=== PATIENT | male | born 1945 | race American Indian/Alaskan Native ===

== ENCOUNTER 2018-11-27 20:32 | Inpatient (IN) | payer MEDICARE ==
--- NOTE | 2018-11-27 21:30 | Emergency Department Report ---
HPI - General Chief Complaint: Weakness Time Seen by Provider: 11/27/18 20:40 - HPI HPI: 73-year-old -[place]i male presents to the emergency department via EMS from home with complaint of generalized weakness and fatigue. He also complains of some occasional diarrhea. He denies any chest pain, fever, shortness of breath, headache or any focal neurological deficits. He has a past medical history of sya-[id number] diabetes, hypothyroidism, hypertension and hyperlipidemia. No recent travel or sick contacts at home. He says that these symptoms going on for "a while." He has not taken anything for his symptoms prior to presentation. ED Past Medical Hx - Past Medical History Previous Medical History?: Yes Hx Hypertension: Yes Hx Diabetes: Yes - Social History Smoking Status: Never Smoker - Medications Home Medications: Home Medications Medication Instructions Recorded Confirmed Last Taken Type AtorvaSTATin [Lipitor] 40 mg PO DAILY 11/27/18 11/27/18 Unknown History Cholecalciferol (Vitamin D3) 1,000 1000units PO DAILY 11/27/18 11/27/18 Unknown History [Vitamin D3] Docusate Sodium [Colace] 100 mg PO BID PRN 11/27/18 11/27/18 Unknown History Furosemide [Lasix] 20 mg PO DAILY 11/27/18 11/27/18 Unknown History Hydrocortisone 10 mg PO QAM 11/27/18 11/27/18 Unknown History Hydrocortisone 15 mg PO QPM 11/27/18 11/27/18 Unknown History Levothyroxine [Synthroid] 25 mcg PO QAM 11/27/18 11/27/18 Unknown History Levothyroxine [Synthroid] 112 mcg PO QAM 11/27/18 11/27/18 Unknown History Losartan/Hydrochlorothiazide 1 each PO DAILY 11/27/18 11/27/18 Unknown History [Losartan-Hctz 100-25 mg Tab] Metformin HCl 1,000 mg PO BID 11/27/18 11/27/18 Unknown History Ranitidine HCl [Acid Mold Maker Plaster] 150 mg PO DAILY 11/27/18 11/27/18 Unknown History ED Review of Systems ROS: Stated complaint: GENERAL WEAKNESS Other details as noted in HPI Comment: All other systems reviewed and negative Constitutional: weakness. denies: fever Eyes: denies: eye pain, vision change ENT: denies: ear pain, throat pain Respiratory: denies: cough, shortness of breath Cardiovascular: denies: chest pain, palpitations Gastrointestinal: diarrhea. denies: abdominal pain, constipation Genitourinary: denies: dysuria, discharge Musculoskeletal: denies: back pain, arthralgia Skin: denies: rash, lesions Neurological: weakness. denies: headache, numbness Physical Exam - Physical Exam Vital Signs: Vital Signs 11/27/18 20:57 Temperature 97.5 F L Pulse Rate 106 H Respiratory 20 Rate Blood Pressure 93/57 O2 Sat by Pulse 95 Oximetry Physical Exam: GENERAL: Patient is ill-appearing. HEENT: Normocephalic. Atraumatic. Patient has dry mucous membranes. EYES: Extraocular motions are intact. Pupils are equal and reactive to light bilaterally. NECK: Supple. Trachea is midline. CHEST/LUNGS: Clear to auscultation. There is no respiratory distress noted. HEART/CARDIOVASCULAR: Regular. There is mild tachycardia. There is no obvious murmur. ABDOMEN: Abdomen is soft. There is some epigastric and right upper quadrant tenderness to palpation. No guarding. Patient has normal bowel sounds. There is no abdominal distention. SKIN: Skin is warm and dry. NEURO: The patient is awake, alert, and oriented. The patient is cooperative. The patient has no focal neurologic deficits. The patient has normal speech. MUSCULOSKELETAL: There is no tenderness or deformity. There is no evidence of acute injury. ED Course Vital Signs 11/27/18 20:57 Temperature 97.5 F L Pulse Rate 106 H Respiratory 20 Rate Blood Pressure 93/57 O2 Sat by Pulse 95 Oximetry ED Medical Decision Making - Lab Data Result diagrams: 11/27/18 21:47 11/27/18 22:49 - EKG Data -: EKG Interpreted by Me EKG shows normal: sinus rhythm, axis (left axis deviation), intervals, QRS complexes, ST-T waves Rate: tachycardia (111 bpm) - EKG Data When compared to previous EKG there are: previous EKG unavailable Interpretation: other (sinus tachycardia at 111 bpm, left axis deviation) - Radiology Data Radiology results: report reviewed, image reviewed interpreted by me: Chest x-ray does not show any pneumothorax, pleural effusion, pneumonia or obvious focal consolidation. PROCEDURE: CT HEAD/BRAIN WO CON TECHNIQUE: Axial helical imaging from the skull base to the vertex. HISTORY: Altered Mental Status COMPARISONS: None FINDINGS: There is no evidence of an acute intracranial process, intracranial hemorrhage or mass effect. Ventricular size is concordant with the degree of atrophy. The visualized portions of the orbits, paranasal and mastoid sinuses are unremarkable. The bony structures are unremarkable. IMPRESSION: 1. No evidence of an acute intracranial process, intracranial hemorrhage or mass effect. If there is a clinical suspicion of an acute intracranial process, MRI brain may be helpful. This document is electronically signed by Jannette Rueda MD., November 27 2018 10:39:58 PM ET Transcribed By: OPAL Dictated By: JANNETTE RUEDA MD Electronically Authenticated By: JANNETTE RUEDA MD Signed Date/Time: 11/27/18 2242 PROCEDURE: US ABDOMEN LIMITED TECHNIQUE: Routine imaging was obtained of the right upper quadrant. HISTORY: RUQ abd pain, abnormal LFTs and bilirubin COMPARISONS: None FINDINGS: The liver is enlarged and reveals a very heterogeneous irregular echotexture throughout both lobes. Metastatic disease cannot be excluded. In the right hepatic lobe is an additional heterogeneous prominently hyperechoic mass measuring least 4 cm in diameter. Malignancy is suspected. The gallbladder is contracted. The wall thickness is 3.5 mm. There is shadowing from the gallbladder suggesting a stone. Yuan sign was not elicited. The common bile duct measures 4 mm in diameter. The pancreatic head appears normal. The body and tail are not well- seen. The right kidney shows no evidence of hydronephrosis. IMPRESSION: Hepatomegaly with heterogeneous echotexture of the entire liver suspicious for metastatic disease. Additional hyperechoic poorly marginated mass in the right hepatic lobe measuring least [address] of the abdomen with IV contrast recommended for further evaluation. Contracted gallbladder with shadowing from the gallbladder. A stone is suspected. A Yuan's sign was not elicited. Normal biliary tree. No evidence of hydronephrosis.. This document is electronically signed by Dayna Arias MD., November 28 2018 12:50:30 AM ET Transcribed By: RB Dictated By: DAYNA ARIAS MD Electronically Authenticated By: DAYNA ARIAS MD Signed Date/Time: 11/28/18 0052 PROCEDURE: US RENAL BILAT TECHNIQUE: Real-time sonography in multiple planes of the kidneys, ureters and urinary bladder was performed with image documentation. HISTORY: FIORDALIZA, renal failure COMPARISONS: None . FINDINGS: RIGHT kidney: Normal echotexture. No focal renal mass, calculus, or hydronephrosis. Length: 12.7 cm. LEFT kidney: Normal echotexture. No focal renal mass, calculus, or hydronephrosis. Length: 12.8 cm. Bladder: Normal. No distention or wall thickening. IMPRESSION: Normal Examination . This document is electronically signed by Bozena Thomason DO., November 28 2018 12:51:41 AM ET Transcribed By: [facility] Dictated By: BOZENA THOMASON MD Electronically Authenticated By: BOZENA THOMASON MD Signed Date/Time: 11/28/18 0053 - Medical Decision Making This patient presents to the emergency department with complaint of some generalized weakness and just feeling generally ill. Patient has multiple abnormal labs including what appears to be acute renal failure and elevation in his LFTs and bilirubin and alkaline phosphatase. CT of the head did not show any bleed, shift, mass, ischemia, or any other acute process. Chest x-ray did not show any focal consolidation, pneumonia, pneumothorax, pleural effusions, or any other acute process. Renal ultrasound was unremarkable. However the right upper quadrant/limited abdominal ultrasound shows concern for metastatic liver disease as well as some cholelithiasis without cholecystitis. The patient will be admitted to the hospital for further evaluation and treatment and was accepted for admission by the hospitalist, Dr. Lomeli. - Differential Diagnosis Malignancy, TIA, Dysrythmia, hypoglycemia, [place] Critical Care Time: Yes Critical care time in (mins) excluding proc time.: 35 Critical care attestation.: If time is entered above; I have spent that time in minutes in the direct care of this critically ill patient, excluding procedure time. Cranial Time was spent on this patient during his initial evaluation, multiple re-evaluations, interpretation of labs and imaging, resuscitation, medication administration as treatment for his hyperkalemia.There is a high probability of clinically significant, sudden, or life-threatening deterioration that has required multiple evaluations and direct attention, intervention, and management. Critical Care Time: 35 minutes ED Disposition Clinical Impression: Hyperkalemia, Liver masses, Elevated troponin Acute renal failure Qualifiers: Acute renal failure type: unspecified Qualified Code(s): N17.9 - Acute kidney failure, unspecified Cholelithiasis Qualifiers: Cholelithiasis location: gallbladder Cholecystitis presence: with cholecystitis Cholecystitis acuity: unspecified acuity Biliary obstruction: without biliary obstruction Qualified Code(s): K80.10 - Calculus of gallbladder with chronic cholecystitis without obstruction Hypotension Qualifiers: Hypotension type: other hypotension type Qualified Code(s): I95.89 - Other hypotension Disposition: DC-09 OP ADMIT IP TO THIS HOSP Is pt being admited?: Yes Condition: Serious Time of Disposition: 01:07
[2018-11-27 22:02] LABS: Hematocrit 34.1 % (35.5-45.6); Hemoglobin 11.6 gm/dl (11.8-15.2); Mean Corpuscular HGB Conc 34 % (32-34); Mean Corpuscular Volume 92 fl (84-94); Platelet Count 321 K/mm3 (140-440); Red Blood Count 3.72 M/mm3 (3.65-5.03)
[2018-11-27 22:09] LABS: Red Cell Distribution Width 24.9 % (13.2-15.2)
[2018-11-27] MEDS ORDERED: NACL 0.9% 500 ML 500 ML IV ONE (22:10)
--- NOTE | 2018-11-27 22:10 | XRay Report ---
XR CHEST 1V AP CLINICAL INDICATION: Male, 73 years of age. Altered Mental Status COMPARISON: None available. Findings: Frontal view(s) of the chest obtained. Cardiac silhouette is within normal limits. No gr oss focal consolidation or effusion. No gross pneumothorax. IMPRESSION: No grossly acute findings. This document is electronically signed by Jayda Mclean DO., November 27 2018 10:08:58 PM ET
[2018-11-27 22:14] LABS: INR 1.75 (0.87-1.13); Partial Thromboplastin Time 34.7 Sec. (24.2-36.6)
[2018-11-27 22:21] LABS: Albumin 2.6 g/dL (3.9-5)
[2018-11-27 22:40] LABS: Eosinophils % (Manual) 0 % (0.0-4.3); Total Cells Counted 100
[2018-11-27 22:41] LABS: Anisocytosis 2+; Hypochromasia 1+; Target Cells 2+
[2018-11-27 22:42] LABS: Spherocytes Few
--- NOTE | 2018-11-27 22:42 | Cat Scan Report ---
PROCEDURE: CT HEAD/BRAIN WO CON TECHNIQUE: Axial helical imaging from the skull base to the vertex. HISTORY: Altered Mental Status COMPARISONS: None FINDINGS: There is no evidence of an acute intracranial process, intracranial hemorrhage or mass effect. Ventricular size is concordant with the degree of atrophy. The visualized portions of the orbits, paranasal and mastoid sinuses are unremarkable. The bony structures are unremarkable. IMPRESSION: 1. No evidence of an acute intracranial process, intracranial hemorrhage or mass effect. If there is a clinical suspicion of an acute intracranial process, MRI brain may be helpful. This document is electronically signed by Jannette Rueda MD., November 27 2018 10:39:58 PM ET
[2018-11-27 22:43] LABS: Platelet Estimate Consistent w Auto
[2018-11-27 22:44] LABS: Chol/HDL Ratio 14.57 %
[2018-11-27] MEDS ORDERED: PROVENTIL IH ONE (23:51)
[2018-11-27] MEDS ORDERED: KIONEX PO ONE (23:52)
[2018-11-27] MEDS ORDERED: D50W (25GM) Vial IV ONE (23:52)
[2018-11-27] MEDS ORDERED: HumuLIN R IV ONE (23:52)
[2018-11-27] MEDS ORDERED: CALCIUM GLUCONATE 1,000 MG in NACL 0.9% 100 ML IV ONE (23:52)
--- NOTE | 2018-11-28 00:52 | Ultrasound Report ---
PROCEDURE: US ABDOMEN LIMITED TECHNIQUE: Routine imaging was obtained of the right upper quadrant. HISTORY: RUQ abd pain, abnormal LFTs and bilirubin COMPARISONS: None FINDINGS: The liver is enlarged and reveals a very heterogeneous irregular echotexture throughout both lobes. M etastatic disease cannot be excluded. In the right hepatic lobe is an additional heterogeneous promin ently hyperechoic mass measuring least 4 cm in diameter. Malignancy is suspected. The gallbladder is contracted. The wall thickness is 3.5 mm. There is shadowing from the gallbladder suggesting a stone. Yuan sign was not elicited. The common bile duct measures 4 mm in diameter. The pancreatic head appears normal. The body and tail are not well-seen. The right kidney shows no evide nce of hydronephrosis. IMPRESSION: Hepatomegaly with heterogeneous echotexture of the entire liver suspicious for metastatic disease. Additional hyperechoic poorly marginated mass in the right hepatic lobe measuring least [address] of the abdomen with IV contrast recommended for further evaluation. Contracted gallbladder with shadowing from the gallbladder. A stone is suspected. A Yuan's sign was not elicited. Normal biliary tree. No evidence of hydronephrosis.. This document is electronically signed by Sonido Arias MD., November 28 2018 12:50:30 AM ET
--- NOTE | 2018-11-28 00:53 | Ultrasound Report ---
PROCEDURE: US RENAL BILAT TECHNIQUE: Real-time sonography in multiple planes of the kidneys, ureters and urinary bladder was p erformed with image documentation. HISTORY: FIORDALIZA, renal failure COMPARISONS: None . FINDINGS: RIGHT kidney: Normal echotexture. No focal renal mass, calculus, or hydronephrosis. Length: 12.7 cm . LEFT kidney: Normal echotexture. No focal renal mass, calculus, or hydronephrosis. Length: 12.8 cm. Bladder: Normal. No distention or wall thickening. IMPRESSION: Normal Examination . This document is electronically signed by Dahlia Henry DO., November 28 2018 12:51:41 AM ET
[2018-11-28] MEDS ORDERED: NACL 0.9% 1000 ML 1,000 ML IV ONE ×2 (01:17→02:43)
[2018-11-28] MEDS ORDERED: TYLENOL PO PRN (02:40)
[2018-11-28] MEDS ORDERED: SODIUM CHLORIDE FLUSH SYRINGE 10 ML IV PRN (02:40)
[2018-11-28] MEDS ORDERED: MORPHINE IV PRN (02:40)
[2018-11-28] MEDS ORDERED: PERCOCET 5/325 PO PRN (02:40)
[2018-11-28] MEDS ORDERED: ZOFRAN IV PRN (02:40)
[2018-11-28] MEDS ORDERED: D50W (25GM) Syringe IV PRN (03:08)
--- NOTE | 2018-11-28 03:14 | History and Physical Report ---
History of Present Illness Date of examination: 11/28/18 Chief complaint: Generalized weakness History of present illness: Patient is a 73-year-old -Citizen Of [place] male who presented to the emergency department via EMS from home with complaint of generalized weakness, body aches and easy fatigability with falls. He also complained of some occasional diarrhea, generalized abdominal pain and shortness of breath. He denies chest pain, palpitation, fever, chills, cough, sore throat, runny nose, leg swelling, orthopnea or PND. No headaches, nausea, vomiting, lightheadedness syncope or lo ss of consciousness. Patient stated that he was recently told about a week ago at [place] that he has some form of cancer. Past History Past Medical History: diabetes, hypertension Past Surgical History: No surgical history Social history: other (patient admits to occasional alcohol use, but denies tobacco or illicit drug use) Family history: other (reviewed and noncontributory) Medications and Allergies Allergies Allergy/AdvReac Type Severity Reaction Status Date / Time No Known Allergies Allergy Verified 11/27/18 23:55 Home Medications Medication Instructions Recorded Confirmed Last Taken Type AtorvaSTATin [Lipitor] 40 mg PO DAILY 11/27/18 11/27/18 Unknown History Cholecalciferol (Vitamin D3) 1,000 1000units PO DAILY 11/27/18 11/27/18 Unknown History [Vitamin D3] Docusate Sodium [Colace] 100 mg PO BID PRN 11/27/18 11/27/18 Unknown History Furosemide [Lasix] 20 mg PO DAILY 11/27/18 11/27/18 Unknown History Hydrocortisone 10 mg PO QAM 11/27/18 11/27/18 Unknown History Hydrocortisone 15 mg PO QPM 11/27/18 11/27/18 Unknown History Levothyroxine [Synthroid] 25 mcg PO QAM 11/27/18 11/27/18 Unknown History Levothyroxine [Synthroid] 112 mcg PO QAM 11/27/18 11/27/18 Unknown History Losartan/Hydrochlorothiazide 1 each PO DAILY 11/27/18 11/27/18 Unknown History [Losartan-Hctz 100-25 mg Tab] Metformin HCl 1,000 mg PO BID 11/27/18 11/27/18 Unknown History Ranitidine HCl [Acid Educational Assistant Teacher] 150 mg PO DAILY 11/27/18 11/27/18 Unknown History Active Meds: Active Medications Acetaminophen (Tylenol) 650 mg PO Q4H PRN PRN Reason: Pain MILD(1-3)/Fever >100.5/ROSALES Dextrose (D50w (25gm) Syringe) 50 ml IV PRN PRN PRN Reason: Hypoglycemia Sodium Chloride (Nacl 0.9% 1000 Ml) 1,000 mls @ 125 mls/hr IV DIRECT ALEXSANDRA Sodium Chloride (Nacl 0.9% 1000 Ml) 1,000 mls @ 999 mls/hr IV BOLUS ONE Stop: 11/28/18 03:43 Morphine Sulfate (Morphine) 2 mg IV Q3H PRN PRN Reason: Pain, Moderate (4-6) Ondansetron HCl (Zofran) 4 mg IV Q8H PRN PRN Reason: Nausea And Vomiting Oxycodone/Acetaminophen (Percocet 5/325) 1 tab PO Q4H PRN PRN Reason: Pain, Moderate (4-6) Sodium Chloride (Sodium Chloride Flush Syringe 10 Ml) 10 ml IV BID ALEXSANDRA Sodium Chloride (Sodium Chloride Flush Syringe 10 Ml) 10 ml IV PRN PRN PRN Reason: LINE FLUSH Review of Systems All systems: negative (except as documented in the HPI, all other systems were reviewed and negative) Exam - Constitutional Vitals: Temp Pulse Resp BP Pulse Ox 97.5 F L 100 H 20 95/60 99 11/27/18 23:00 11/28/18 02:05 11/28/18 02:05 11/27/18 23:00 11/27/18 23:30 General appearance: Present: no acute distress, other (ill-looking) - EENT Eyes: Present: PERRL, EOM intact ENT: hearing intact, other (erythema with poor dentition) - Neck Neck: Present: supple, normal ROM - Respiratory Respiratory effort: normal Respiratory: bilateral: CTA - Cardiovascular Rhythm: regular (tachycardia) Heart Sounds: Present: S1 & S2. Absent: rub, click - Extremities Extremity abnormal: edema (in left lower extremity. Dressing noted over the right lower extremity) - Abdominal General gastrointestinal: Present: tender (generalized), distended, normal bowel sounds, hepatomegaly, other (firm on palpation) Male genitourinary: Present: deferred - Integumentary Integumentary: Present: erythema (wound over his right lower extremity) - Musculoskeletal Musculoskeletal: generalized weakness - Psychiatric Psychiatric: appropriate mood/affect, intact judgment & insight - Neurologic Neurologic: CNII-XII intact, moves all extremities Results - Labs CBC & Chem 7: 11/27/18 21:47 11/27/18 22:49 Labs: Laboratory Last Values WBC 11.3 K/mm3 (4.5-11.0) H 11/27/18 21:47 RBC 3.72 M/mm3 (3.65-5.03) 11/27/18 21:47 Hgb 11.6 gm/dl (11.8-15.2) L 11/27/18 21:47 Hct 34.1 % (35.5-45.6) L 11/27/18 21:47 MCV 92 fl (84-94) 11/27/18 21:47 MCH 31 pg (28-32) 11/27/18 21:47 MCHC 34 % (32-34) 11/27/18 21:47 RDW 24.9 % (13.2-15.2) H 11/27/18 21:47 Plt Count 321 K/mm3 (140-440) 11/27/18 21:47 Lymph % (Auto) Food Service Order Clerk 11/27/18 21:47 Lymph # Food Service Order Clerk 11/27/18 21:47 Add Manual Diff Complete 11/27/18 21:47 Total Counted 100 11/27/18 21:47 Seg Neutrophils % Food Service Order Clerk 11/27/18 21:47 Seg Neuts % (Manual) 87.0 % (40.0-70.0) H 11/27/18 21:47 Band Neutrophils % 0 % 11/27/18 21:47 Lymphocytes % (Manual) 8.0 % (13.4-35.0) L 11/27/18 21:47 Reactive Lymphs % (Man) 0 % 11/27/18 21:47 Monocytes % (Manual) 4.0 % (0.0-7.3) 11/27/18 21:47 Eosinophils % (Manual) 0 % (0.0-4.3) 11/27/18 21:47 Basophils % (Manual) 1.0 % (0.0-1.8) 11/27/18 21:47 Metamyelocytes % 0 % 11/27/18 21:47 Myelocytes % 0 % 11/27/18 21:47 Promyelocytes % 0 % 11/27/18 21:47 Blast Cells % 0 % 11/27/18 21:47 Nucleated RBC % 1.0 % (0.0-0.9) H 11/27/18 21:47 Seg Neutrophils # Man 9.8 K/mm3 (1.8-7.7) H 11/27/18 21:47 Band Neutrophils # 0.0 K/mm3 11/27/18 21:47 Lymphocytes # (Manual) 0.9 K/mm3 (1.2-5.4) L 11/27/18 21:47 Abs React Lymphs (Man) 0.0 K/mm3 11/27/18 21:47 Monocytes # (Manual) 0.5 K/mm3 (0.0-0.8) 11/27/18 21:47 Eosinophils # (Manual) 0.0 K/mm3 (0.0-0.4) 11/27/18 21:47 Basophils # (Manual) 0.1 K/mm3 (0.0-0.1) 11/27/18 21:47 Metamyelocytes # 0.0 K/mm3 11/27/18 21:47 Myelocytes # 0.0 K/mm3 11/27/18 21:47 Promyelocytes # 0.0 K/mm3 11/27/18 21:47 Blast Cells # 0.0 K/mm3 11/27/18 21:47 WBC Morphology Not Reportable 11/27/18 21:47 Hypersegmented Neuts Not Reportable 11/27/18 21:47 Hyposegmented Neuts Not Reportable 11/27/18 21:47 Hypogranular Neuts Not Reportable 11/27/18 21:47 Smudge Cells Not Reportable 11/27/18 21:47 Toxic Granulation Not Reportable 11/27/18 21:47 Toxic Vacuolation Not Reportable 11/27/18 21:47 Dohle Bodies Not Reportable 11/27/18 21:47 Pelger-Huet Anomaly Not Reportable 11/27/18 21:47 Jessica Rods Not Reportable 11/27/18 21:47 Platelet Estimate Consistent w auto 11/27/18 21:47 Clumped Platelets Not Reportable 11/27/18 21:47 Plt Clumps, EDTA Not Reportable 11/27/18 21:47 Large Platelets Not Reportable 11/27/18 21:47 Giant Platelets Not Reportable 11/27/18 21:47 Platelet Satelliting Not Reportable 11/27/18 21:47 Plt Morphology Comment Not Reportable 11/27/18 21:47 RBC Morphology Not Reportable 11/27/18 21:47 Dimorphic RBCs Not Reportable 11/27/18 21:47 Polychromasia Few 11/27/18 21:47 Hypochromasia 1+ 11/27/18 21:47 Poikilocytosis Not Reportable 11/27/18 21:47 Anisocytosis 2+ 11/27/18 21:47 Microcytosis Few 11/27/18 21:47 Macrocytosis Not Reportable 11/27/18 21:47 Spherocytes Few 11/27/18 21:47 Pappenheimer Bodies Not Reportable 11/27/18 21:47 Sickle Cells Not Reportable 11/27/18 21:47 Target Cells 2+ 11/27/18 21:47 Tear Drop Cells Not Reportable 11/27/18 21:47 Ovalocytes Not Reportable 11/27/18 21:47 Helmet Cells Not Reportable 11/27/18 21:47 Perez-Eldred Bodies Not Reportable 11/27/18 21:47 [place] Rings Not Reportable 11/27/18 21:47 Frederick Cells Not Reportable 11/27/18 21:47 Bite Cells Not Reportable 11/27/18 21:47 Crenated Cell Not Reportable 11/27/18 21:47 Elliptocytes Not Reportable 11/27/18 21:47 Acanthocytes (Spur) Not Reportable 11/27/18 21:47 Rouleaux Not Reportable 11/27/18 21:47 Hemoglobin C Crystals Not Reportable 11/27/18 21:47 Schistocytes Not Reportable 11/27/18 21:47 Malaria parasites Not Reportable 11/27/18 21:47 Hugo Bodies Not Reportable 11/27/18 21:47 Hem Pathologist Commnt No 11/27/18 21:47 PT 21.6 Sec. (12.2-14.9) H 11/27/18 21:47 INR 1.75 (0.87-1.13) H 11/27/18 21:47 APTT 34.7 Sec. (24.2-36.6) 11/27/18 21:47 Sodium 136 mmol/L (137-145) L 11/27/18 21:47 Potassium 5.8 mmol/L (3.6-5.0) H D 11/27/18 22:49 Chloride 99.8 mmol/L (98-107) 11/27/18 21:47 Carbon Dioxide 22 mmol/L (22-30) 11/27/18 21:47 Anion Gap 23 mmol/L 11/27/18 21:47 BUN 84 mg/dL (9-20) H 11/27/18 21:47 Creatinine 3.8 mg/dL (0.8-1.5) H 11/27/18 21:47 Estimated GFR 19 ml/min 11/27/18 21:47 BUN/Creatinine Ratio 22 % 11/27/18 21:47 Glucose 143 mg/dL (75-100) H 11/27/18 21:47 Lactic Acid 1.90 mmol/L (0.7-2.0) 11/27/18 21:47 Calcium 9.0 mg/dL (8.4-10.2) 11/27/18 21:47 Total Bilirubin 12.20 mg/dL (0.1-1.2) H 11/27/18 21:47 AST 189 units/L (5-40) H 11/27/18 21:47 ALT 96 units/L (7-56) H 11/27/18 21:47 Alkaline Phosphatase 1033 units/L (35-129) H 11/27/18 21:47 Ammonia 21.0 umol/L (25-60) L 11/27/18 21:47 Troponin T 0.104 ng/mL (0.00-0.029) H* 11/27/18 21:47 Total Protein 6.1 g/dL (6.3-8.2) L 11/27/18 21:47 Albumin 2.6 g/dL (3.9-5) L 11/27/18 21:47 Albumin/Globulin Ratio 0.7 % 11/27/18 21:47 Triglycerides 106 mg/dL (2-149) 11/27/18 21:47 Cholesterol 306 mg/dL (50-199) H 11/27/18 21:47 LDL Cholesterol Direct 22 mg/dL (50-130) L 11/27/18 21:47 HDL Cholesterol 21 mg/dL (40-59) L 11/27/18 21:47 Cholesterol/HDL Ratio 14.57 % 11/27/18 21:47 TSH 0.010 mlU/mL (0.270-4.200) L 11/27/18 21:47 Free T4 0.92 ng/dL (0.76-1.46) 11/27/18 22:49 Assessment and Plan Assessment and plan: Acute renal failure -On IV fluid, will monitor creatinine level -Renal ultrasound negative -Consult nephrology Hyperkalemia -Status post treatment, will monitor level New metastatic disease per abdominal ultrasound -Consult oncologist Transaminitis -Likely secondary to the hepatic disease/mass Elevated troponin -Probably secondary to demand ischemia due to the renal impairment -We'll continue serial troponin level monitoring -We'll order echocardiogram Hypercoagulable state -Likely due to the hepatic disease/mass Dyslipidemia -On statin Left lower extremity edema -Venous duplex to assess for DVT Right lower extremity wound -Wound care nurse consulted Physical deconditioning -PT consulted DVT Prophylaxis with SCD due to high risk for bleed Disposition: Overall prognosis is very poor. Time spent: 40 minutes
[2018-11-28 03:48] LABS: Amorphous Crystals,Urine Few; Bacteria,Urine 4+ /HPF (Negative); Bilirubin,Urine MOD (Negative); Blood,Urine SM (Negative); Color,Urine Amber (Yellow); Mucus,Urine FEW /HPF
[2018-11-28 03:55] LABS: Ictotest,Urine Positive (Negative)
--- NOTE | 2018-11-28 09:55 | Progress Note ---
Assessment and Plan Assessment and plan: --Acute renal failure: Secondary to ATN Continue IV fluid, avoid nephrotoxins Renal ultrasound negative, nephrology evaluation --Hyperkalemia; treated per protocol Follow electrolyte levels, patient refused blood work today --Large liver mass on ultrasound /possible primary versus metastatic lesion per Abdominal ultrasound. Patient's daughter the MALIK, reports that Patient had extensive workup at [facility], including liver biopsy recently will request medical records, consult oncology, GI --Transaminitis; due to malignant liver lesion ,primary versus metastatic --Nonspecific Elevated troponin;denies chest pain or shortness of breath Probably secondary to demand ischemia due to the renal impairment serial troponin level , echocardiogram for LV function and ejection fraction --Hypercoagulable state/coagulopathy Likely due to the hepatic disease/mass --Dyslipidemia; hold statin in view of transaminitis --Left lower extremity edema Venous duplex negative for DVT --Right lower extremity wound Wound care nurse consulted --Gen. debility/Deconditioning: PT and OT/Rehab --DVT Prophylaxis with SCD due to high risk for bleed Disposition: Request medical records from [facility], follow oncology and GI evaluation Plan of Case reviewed with the patient and his nurse I also discussed with his daughter MALIK extensively patient's condition Treatment plan, answered all her questions, get medical records from [facility] History Interval history: Patient seen and evaluated medical records reviewed No new events reported by the nursing staff Admitted with generalized weakness and liver mass Patient looks chronically ill cachectic Refuses to talk, In mild distress Vital signs noted Hospitalist Physical - Constitutional Vitals: Temp Pulse Resp BP Pulse Ox 97.5 F L 100 H 20 99/61 94 11/27/18 23:00 11/28/18 02:05 11/28/18 02:05 11/28/18 04:15 11/28/18 04:00 General appearance: Present: no acute distress, cachectic, disheveled, other (ill-looking) - EENT Eyes: Present: PERRL, EOM intact - Neck Neck: Present: supple, normal ROM - Respiratory Respiratory effort: normal Respiratory: bilateral: diminished, rhonchi, negative: rales, wheezing - Cardiovascular Rhythm: regular Heart Sounds: Present: S1 & S2 - Extremities Extremities: no ischemia, No edema - Abdominal General gastrointestinal: soft, non-tender, non-distended, normal bowel sounds - Integumentary Integumentary: Present: clear, warm - Psychiatric Psychiatric: appropriate mood/affect, other (doesn't want to be bothered) - Neurologic Neurologic: moves all extremities Results - Labs CBC & Chem 7: 11/27/18 21:47 11/28/18 15:56 Labs: Laboratory Last Values WBC 11.3 K/mm3 (4.5-11.0) H 11/27/18 21:47 RBC 3.72 M/mm3 (3.65-5.03) 11/27/18 21:47 Hgb 11.6 gm/dl (11.8-15.2) L 11/27/18 21:47 Hct 34.1 % (35.5-45.6) L 11/27/18 21:47 MCV 92 fl (84-94) 11/27/18 21:47 MCH 31 pg (28-32) 11/27/18 21:47 MCHC 34 % (32-34) 11/27/18 21:47 RDW 24.9 % (13.2-15.2) H 11/27/18 21:47 Plt Count 321 K/mm3 (140-440) 11/27/18 21:47 Lymph % (Auto) Income Tax Investigator 11/27/18 21:47 Lymph # Income Tax Investigator 11/27/18 21:47 Add Manual Diff Complete 11/27/18 21:47 Total Counted 100 11/27/18 21:47 Seg Neutrophils % Income Tax Investigator 11/27/18 21:47 Seg Neuts % (Manual) 87.0 % (40.0-70.0) H 11/27/18 21:47 Band Neutrophils % 0 % 11/27/18 21:47 Lymphocytes % (Manual) 8.0 % (13.4-35.0) L 11/27/18 21:47 Reactive Lymphs % (Man) 0 % 11/27/18 21:47 Monocytes % (Manual) 4.0 % (0.0-7.3) 11/27/18 21:47 Eosinophils % (Manual) 0 % (0.0-4.3) 11/27/18 21:47 Basophils % (Manual) 1.0 % (0.0-1.8) 11/27/18 21:47 Metamyelocytes % 0 % 11/27/18 21:47 Myelocytes % 0 % 11/27/18 21:47 Promyelocytes % 0 % 11/27/18 21:47 Blast Cells % 0 % 11/27/18 21:47 Nucleated RBC % 1.0 % (0.0-0.9) H 11/27/18 21:47 Seg Neutrophils # Man 9.8 K/mm3 (1.8-7.7) H 11/27/18 21:47 Band Neutrophils # 0.0 K/mm3 11/27/18 21:47 Lymphocytes # (Manual) 0.9 K/mm3 (1.2-5.4) L 11/27/18 21:47 Abs React Lymphs (Man) 0.0 K/mm3 11/27/18 21:47 Monocytes # (Manual) 0.5 K/mm3 (0.0-0.8) 11/27/18 21:47 Eosinophils # (Manual) 0.0 K/mm3 (0.0-0.4) 11/27/18 21:47 Basophils # (Manual) 0.1 K/mm3 (0.0-0.1) 11/27/18 21:47 Metamyelocytes # 0.0 K/mm3 11/27/18 21:47 Myelocytes # 0.0 K/mm3 11/27/18 21:47 Promyelocytes # 0.0 K/mm3 11/27/18 21:47 Blast Cells # 0.0 K/mm3 11/27/18 21:47 WBC Morphology Not Reportable 11/27/18 21:47 Hypersegmented Neuts Not Reportable 11/27/18 21:47 Hyposegmented Neuts Not Reportable 11/27/18 21:47 Hypogranular Neuts Not Reportable 11/27/18 21:47 Smudge Cells Not Reportable 11/27/18 21:47 Toxic Granulation Not Reportable 11/27/18 21:47 Toxic Vacuolation Not Reportable 11/27/18 21:47 Dohle Bodies Not Reportable 11/27/18 21:47 Pelger-Huet Anomaly Not Reportable 11/27/18 21:47 Jessica Rods Not Reportable 11/27/18 21:47 Platelet Estimate Consistent w auto 11/27/18 21:47 Clumped Platelets Not Reportable 11/27/18 21:47 Plt Clumps, EDTA Not Reportable 11/27/18 21:47 Large Platelets Not Reportable 11/27/18 21:47 Giant Platelets Not Reportable 11/27/18 21:47 Platelet Satelliting Not Reportable 11/27/18 21:47 Plt Morphology Comment Not Reportable 11/27/18 21:47 RBC Morphology Not Reportable 11/27/18 21:47 Dimorphic RBCs Not Reportable 11/27/18 21:47 Polychromasia Few 11/27/18 21:47 Hypochromasia 1+ 11/27/18 21:47 Poikilocytosis Not Reportable 11/27/18 21:47 Anisocytosis 2+ 11/27/18 21:47 Microcytosis Few 11/27/18 21:47 Macrocytosis Not Reportable 11/27/18 21:47 Spherocytes Few 11/27/18 21:47 Pappenheimer Bodies Not Reportable 11/27/18 21:47 Sickle Cells Not Reportable 11/27/18 21:47 Target Cells 2+ 11/27/18 21:47 Tear Drop Cells Not Reportable 11/27/18 21:47 Ovalocytes Not Reportable 11/27/18 21:47 Helmet Cells Not Reportable 11/27/18 21:47 Perez-[place] Bodies Not Reportable 11/27/18 21:47 [place] Rings Not Reportable 11/27/18 21:47 [place] Cells Not Reportable 11/27/18 21:47 Bite Cells Not Reportable 11/27/18 21:47 Crenated Cell Not Reportable 11/27/18 21:47 Elliptocytes Not Reportable 11/27/18 21:47 Acanthocytes (Spur) Not Reportable 11/27/18 21:47 Rouleaux Not Reportable 11/27/18 21:47 Hemoglobin C Crystals Not Reportable 11/27/18 21:47 Schistocytes Not Reportable 11/27/18 21:47 Malaria parasites Not Reportable 11/27/18 21:47 Hugo Bodies Not Reportable 11/27/18 21:47 Hem Pathologist Commnt No 11/27/18 21:47 PT 21.6 Sec. (12.2-14.9) H 11/27/18 21:47 INR 1.75 (0.87-1.13) H 11/27/18 21:47 APTT 34.7 Sec. (24.2-36.6) 11/27/18 21:47 Sodium 136 mmol/L (137-145) L 11/27/18 21:47 Potassium 5.8 mmol/L (3.6-5.0) H D 11/27/18 22:49 Chloride 99.8 mmol/L (98-107) 11/27/18 21:47 Carbon Dioxide 22 mmol/L (22-30) 11/27/18 21:47 Anion Gap 23 mmol/L 11/27/18 21:47 BUN 84 mg/dL (9-20) H 11/27/18 21:47 Creatinine 3.8 mg/dL (0.8-1.5) H 11/27/18 21:47 Estimated GFR 19 ml/min 11/27/18 21:47 BUN/Creatinine Ratio 22 % 11/27/18 21:47 Glucose 143 mg/dL (75-100) H 11/27/18 21:47 POC Glucose 138 (70-105) H 11/28/18 08:05 Lactic Acid 1.90 mmol/L (0.7-2.0) 11/27/18 21:47 Calcium 9.0 mg/dL (8.4-10.2) 11/27/18 21:47 Total Bilirubin 12.20 mg/dL (0.1-1.2) H 11/27/18 21:47 AST 189 units/L (5-40) H 11/27/18 21:47 ALT 96 units/L (7-56) H 11/27/18 21:47 Alkaline Phosphatase 1033 units/L (35-129) H 11/27/18 21:47 Ammonia 21.0 umol/L (25-60) L 11/27/18 21:47 Troponin T 0.123 ng/mL (0.00-0.029) H* 11/28/18 03:25 Total Protein 6.1 g/dL (6.3-8.2) L 11/27/18 21:47 Albumin 2.6 g/dL (3.9-5) L 11/27/18 21:47 Albumin/Globulin Ratio 0.7 % 11/27/18 21:47 Triglycerides 106 mg/dL (2-149) 11/27/18 21:47 Cholesterol 306 mg/dL (50-199) H 11/27/18 21:47 LDL Cholesterol Direct 22 mg/dL (50-130) L 11/27/18 21:47 HDL Cholesterol 21 mg/dL (40-59) L 11/27/18 21:47 Cholesterol/HDL Ratio 14.57 % 11/27/18 21:47 TSH 0.010 mlU/mL (0.270-4.200) L 11/27/18 21:47 Free T4 0.92 ng/dL (0.76-1.46) 11/27/18 22:49 Urine Color [place] (Yellow) 11/28/18 03:31 Urine Turbidity Slightly-cloudy (Clear) 11/28/18 03:31 Urine pH 6.0 (5.0-7.0) 11/28/18 03:31 Ur Specific [place] 1.019 (1.003-1.030) 11/28/18 03:31 Urine Protein 100 mg/dl mg/dL (Negative) 11/28/18 03:31 Urine Glucose (UA) Neg mg/dL (Negative) 11/28/18 03:31 Urine Ketones Neg mg/dL (Negative) 11/28/18 03:31 Urine Blood Sm (Negative) 11/28/18 03:31 Urine Nitrite Neg (Negative) 11/28/18 03:31 Urine Bilirubin Mod (Negative) 11/28/18 03:31 Urine Ictotest Positive (Negative) 11/28/18 03:31 Urine Urobilinogen 4.0 mg/dL (<2.0) 11/28/18 03:31 Ur Leukocyte Esterase Mod (Negative) 11/28/18 03:31 Urine WBC (Auto) 114.0 /HPF (0.0-6.0) H 11/28/18 03:31 Urine RBC (Auto) 7.0 /HPF (0.0-6.0) 11/28/18 03:31 U Epithel Cells (Auto) 1.0 /HPF (0-13.0) 11/28/18 03:31 Urine Bacteria (Auto) 4+ /HPF (Negative) 11/28/18 03:31 Amorphous Crystals Few 11/28/18 03:31 Urine Mucus Few /HPF 11/28/18 03:31 Active Medications - Current Medications Current Medications: Generic Name Dose Route Start Last Admin Trade Name Freq PRN Reason Stop Dose Admin Acetaminophen 650 mg 11/28/18 02:40 Tylenol PO Q4H PRN Pain MILD(1-3)/Fever >100.5/ROSALES Aspirin 325 mg 11/28/18 10:00 Aspirin PO QDAY [facility] Atorvastatin Calcium 40 mg 11/28/18 22:00 Lipitor PO QHS [facility] Dextrose 50 ml 11/28/18 03:08 D50w (25gm) Syringe IV PRN PRN Hypoglycemia Sodium Chloride 1,000 mls @ 125 mls/hr 11/28/18 03:00 Nacl 0.9% 1000 Ml IV DIRECT [facility] Insulin Glargine 10 units 11/28/18 22:00 Lantus SUB-Q QHS [facility] Insulin Human Lispro 0 unit 11/28/18 07:30 Humalog SUB-Q ACHS [facility] Protocol Morphine Sulfate 2 mg 11/28/18 02:40 Morphine IV Q3H PRN Pain, Moderate (4-6) Ondansetron HCl 4 mg 11/28/18 02:40 Zofran IV Q8H PRN Nausea And Vomiting Oxycodone/Acetaminophen 1 tab 11/28/18 02:40 Percocet 5/325 PO Q4H PRN Pain, Moderate (4-6) Pneumococcal Polyvalent Vaccine 0.5 ml 11/28/18 12:00 Pneumovax 23 IM 11/28/18 12:01 .ONCE ONE Sodium Chloride 10 ml 11/28/18 10:00 Sodium Chloride Flush Syringe 10 Ml IV BID [facility] Sodium Chloride 10 ml 11/28/18 02:40 Sodium Chloride Flush Syringe 10 Ml IV PRN PRN LINE FLUSH
[2018-11-28] MEDS: HumaLOG SUB-Q SCH ×4 (10:14→22:51)
[2018-11-28] MEDS: ASPIRIN PO SCH (10:19)
[2018-11-28] MEDS: SODIUM CHLORIDE FLUSH SYRINGE 10 ML IV SCH ×2 (10:23→22:30)
[2018-11-28] MEDS ORDERED: PNEUMOVAX 23 IM ONE (12:00)
--- NOTE | 2018-11-28 12:37 | Vascular Lab Report ---
PROCEDURE: VL VENOUS DUPLEX LE LT TECHNIQUE: Grayscale, color flow and spectral waveform images were obtained of left lower extremity. HISTORY: LT LE EDEMA COMPARISON: None FINDINGS: There is no deep venous thrombosis seen in the left lower extremity. Flow is demonstrated by color flow and spectral waveform imaging. There is appropriate wall compression and augmentation. There is also no evidence of DVT in visualized proximal right lower extremity. IMPRESSION: There is no evidence for DVT in left lower extremity. This document is electronically signed by Renetta Elaine MD., November 28 2018 12:35:28 PM ET
[2018-11-28] MEDS: NACL 0.9% 1000 ML 1,000 ML IV SCH ×2 (13:12→22:19)
[2018-11-28 17:20] LABS: Calcium 9.7 mg/dL (8.4-10.2)
[2018-11-28] MEDS ORDERED: KIONEX PO ONE (17:48)
[2018-11-28] MEDS ORDERED: CALCIUM CHLORIDE 1,000 MG in NACL 0.9% 100 ML IV ONE (17:48)
[2018-11-28] MEDS: LANTUS SUB-Q SCH (22:51)
[2018-11-29] MEDS: NACL 0.9% 1000 ML 1,000 ML IV SCH (05:18)
[2018-11-29] MEDS: HumaLOG SUB-Q SCH ×6 (07:49→23:07)
--- NOTE | 2018-11-29 09:05 | Progress Note ---
Assessment and Plan Assessment and plan: --Hyperkalemia; calcium chloride, Kayexalate, closely monitor electrolytes --History of hypothyroidism; on Synthroid TSH is very low, possible hyperthyroidism , hold Synthroid repeat TFTs --Full CODE STATUS --Severe Malnutrition/hypoalbuminemia; nutrition consult, nutrition supplements and supportive care --Acute renal failure: Secondary to ATN Continue IV fluid, avoid nephrotoxins Renal ultrasound negative, nephrology evaluation --Hyperkalemia; treated per protocol Follow electrolyte levels, patient refused blood work today --Large liver mass on ultrasound /possible primary versus metastatic lesion per Abdominal ultrasound. Patient's daughter the MALIK, reports that Patient had extensive workup at [facility], including liver biopsy recently will request medical records, consult oncology, GI --Transaminitis; due to malignant liver lesion ,primary versus metastatic --Nonspecific Elevated troponin;denies chest pain or shortness of breath Probably secondary to demand ischemia due to the renal impairment serial troponin level , echocardiogram for LV function and ejection fraction --Hypercoagulable state/coagulopathy Likely due to the hepatic disease/mass --Dyslipidemia; hold statin in view of transaminitis --Left lower extremity edema Venous duplex negative for DVT --Right lower extremity wound Wound care nurse consulted --Gen. debility/Deconditioning: PT and OT/Rehab --DVT Prophylaxis with SCD due to high risk for bleed Disposition: Request medical records from [facility], follow oncology and GI evaluation Plan of Case reviewed with the patient and his nurse I also discussed with his daughter MALIK extensively patient's condition Treatment plan, answered all her questions, get medical records from [facility] History Interval history: Patient seen and examined medical records reviewed No new events reported by the nursing staff The medical records from [facility] as requested Patient is minimally communicative Not in acute distress Vital signs noted Hospitalist Physical - Constitutional Vitals: Temp Pulse Resp BP Pulse Ox 98.3 F 103 H 20 105/63 95 11/29/18 03:32 11/29/18 03:37 11/29/18 03:32 11/29/18 03:32 11/29/18 03:37 General appearance: Present: no acute distress, cachectic, disheveled, other (ill-looking) - EENT Eyes: Present: PERRL, EOM intact - Neck Neck: Present: supple, normal ROM - Respiratory Respiratory: bilateral: diminished, negative: rales, rhonchi, wheezing - Cardiovascular Rhythm: regular Heart Sounds: Present: S1 & S2 - Extremities Extremities: no ischemia, pulses intact Extremity abnormal: other (leg wound dressing in place) - Abdominal General gastrointestinal: soft, non-tender, non-distended, normal bowel sounds - Integumentary Integumentary: Present: clear, warm - Psychiatric Psychiatric: appropriate mood/affect, cooperative - Neurologic Neurologic: CNII-XII intact, moves all extremities Results - Labs CBC & Chem 7: 11/29/18 08:53 11/29/18 16:32 Labs: Laboratory Last Values WBC 11.3 K/mm3 (4.5-11.0) H 11/27/18 21:47 RBC 3.72 M/mm3 (3.65-5.03) 11/27/18 21:47 Hgb 11.6 gm/dl (11.8-15.2) L 11/27/18 21:47 Hct 34.1 % (35.5-45.6) L 11/27/18 21:47 MCV 92 fl (84-94) 11/27/18 21:47 MCH 31 pg (28-32) 11/27/18 21:47 MCHC 34 % (32-34) 11/27/18 21:47 RDW 24.9 % (13.2-15.2) H 11/27/18 21:47 Plt Count 321 K/mm3 (140-440) 11/27/18 21:47 Lymph % (Auto) Life Skills Specialist 11/27/18 21:47 Lymph # Life Skills Specialist 11/27/18 21:47 Add Manual Diff Complete 11/27/18 21:47 Total Counted 100 11/27/18 21:47 Seg Neutrophils % Life Skills Specialist 11/27/18 21:47 Seg Neuts % (Manual) 87.0 % (40.0-70.0) H 11/27/18 21:47 Band Neutrophils % 0 % 11/27/18 21:47 Lymphocytes % (Manual) 8.0 % (13.4-35.0) L 11/27/18 21:47 Reactive Lymphs % (Man) 0 % 11/27/18 21:47 Monocytes % (Manual) 4.0 % (0.0-7.3) 11/27/18 21:47 Eosinophils % (Manual) 0 % (0.0-4.3) 11/27/18 21:47 Basophils % (Manual) 1.0 % (0.0-1.8) 11/27/18 21:47 Metamyelocytes % 0 % 11/27/18 21:47 Myelocytes % 0 % 11/27/18 21:47 Promyelocytes % 0 % 11/27/18 21:47 Blast Cells % 0 % 11/27/18 21:47 Nucleated RBC % 1.0 % (0.0-0.9) H 11/27/18 21:47 Seg Neutrophils # Man 9.8 K/mm3 (1.8-7.7) H 11/27/18 21:47 Band Neutrophils # 0.0 K/mm3 11/27/18 21:47 Lymphocytes # (Manual) 0.9 K/mm3 (1.2-5.4) L 11/27/18 21:47 Abs React Lymphs (Man) 0.0 K/mm3 11/27/18 21:47 Monocytes # (Manual) 0.5 K/mm3 (0.0-0.8) 11/27/18 21:47 Eosinophils # (Manual) 0.0 K/mm3 (0.0-0.4) 11/27/18 21:47 Basophils # (Manual) 0.1 K/mm3 (0.0-0.1) 11/27/18 21:47 Metamyelocytes # 0.0 K/mm3 11/27/18 21:47 Myelocytes # 0.0 K/mm3 11/27/18 21:47 Promyelocytes # 0.0 K/mm3 11/27/18 21:47 Blast Cells # 0.0 K/mm3 11/27/18 21:47 WBC Morphology Not Reportable 11/27/18 21:47 Hypersegmented Neuts Not Reportable 11/27/18 21:47 Hyposegmented Neuts Not Reportable 11/27/18 21:47 Hypogranular Neuts Not Reportable 11/27/18 21:47 Smudge Cells Not Reportable 11/27/18 21:47 Toxic Granulation Not Reportable 11/27/18 21:47 Toxic Vacuolation Not Reportable 11/27/18 21:47 Dohle Bodies Not Reportable 11/27/18 21:47 Pelger-Huet Anomaly Not Reportable 11/27/18 21:47 Jessica Rods Not Reportable 11/27/18 21:47 Platelet Estimate Consistent w auto 11/27/18 21:47 Clumped Platelets Not Reportable 11/27/18 21:47 Plt Clumps, EDTA Not Reportable 11/27/18 21:47 Large Platelets Not Reportable 11/27/18 21:47 Giant Platelets Not Reportable 11/27/18 21:47 Platelet Satelliting Not Reportable 11/27/18 21:47 Plt Morphology Comment Not Reportable 11/27/18 21:47 RBC Morphology Not Reportable 11/27/18 21:47 Dimorphic RBCs Not Reportable 11/27/18 21:47 Polychromasia Few 11/27/18 21:47 Hypochromasia 1+ 11/27/18 21:47 Poikilocytosis Not Reportable 11/27/18 21:47 Anisocytosis 2+ 11/27/18 21:47 Microcytosis Few 11/27/18 21:47 Macrocytosis Not Reportable 11/27/18 21:47 Spherocytes Few 11/27/18 21:47 Pappenheimer Bodies Not Reportable 11/27/18 21:47 Sickle Cells Not Reportable 11/27/18 21:47 Target Cells 2+ 11/27/18 21:47 Tear Drop Cells Not Reportable 11/27/18 21:47 Ovalocytes Not Reportable 11/27/18 21:47 Helmet Cells Not Reportable 11/27/18 21:47 Perez[place] Bodies Not Reportable 11/27/18 21:47 Monitor Rings Not Reportable 11/27/18 21:47 [place] Cells Not Reportable 11/27/18 21:47 Bite Cells Not Reportable 11/27/18 21:47 Crenated Cell Not Reportable 11/27/18 21:47 Elliptocytes Not Reportable 11/27/18 21:47 Acanthocytes (Spur) Not Reportable 11/27/18 21:47 Rouleaux Not Reportable 11/27/18 21:47 Hemoglobin C Crystals Not Reportable 11/27/18 21:47 Schistocytes Not Reportable 11/27/18 21:47 Malaria parasites Not Reportable 11/27/18 21:47 Hugo Bodies Not Reportable 11/27/18 21:47 Hem Pathologist Commnt No 11/27/18 21:47 PT 21.6 Sec. (12.2-14.9) H 11/27/18 21:47 INR 1.75 (0.87-1.13) H 11/27/18 21:47 APTT 34.7 Sec. (24.2-36.6) 11/27/18 21:47 Sodium 140 mmol/L (137-145) 11/28/18 15:56 Potassium 5.8 mmol/L (3.6-5.0) H 11/28/18 15:56 Chloride 103.6 mmol/L (98-107) 11/28/18 15:56 Carbon Dioxide 23 mmol/L (22-30) 11/28/18 15:56 Anion Gap 19 mmol/L 11/28/18 15:56 BUN 80 mg/dL (9-20) H 11/28/18 15:56 Creatinine 4.5 mg/dL (0.8-1.5) H 11/28/18 15:56 Estimated GFR 16 ml/min 11/28/18 15:56 BUN/Creatinine Ratio 18 % 11/28/18 15:56 Glucose 147 mg/dL (75-100) H 11/28/18 15:56 POC Glucose 94 (70-105) 11/29/18 08:06 Lactic Acid 1.90 mmol/L (0.7-2.0) 11/27/18 21:47 Calcium 9.7 mg/dL (8.4-10.2) 11/28/18 15:56 Magnesium 3.10 mg/dL (1.7-2.3) H 11/28/18 15:56 Total Bilirubin 12.20 mg/dL (0.1-1.2) H 11/27/18 21:47 AST 189 units/L (5-40) H 11/27/18 21:47 ALT 96 units/L (7-56) H 11/27/18 21:47 Alkaline Phosphatase 1033 units/L (35-129) H 11/27/18 21:47 Ammonia 21.0 umol/L (25-60) L 11/27/18 21:47 Troponin T 0.088 ng/mL (0.00-0.029) H D 11/28/18 15:56 Total Protein 6.1 g/dL (6.3-8.2) L 11/27/18 21:47 Albumin 2.6 g/dL (3.9-5) L 11/27/18 21:47 Albumin/Globulin Ratio 0.7 % 11/27/18 21:47 Triglycerides 106 mg/dL (2-149) 11/27/18 21:47 Cholesterol 306 mg/dL (50-199) H 11/27/18 21:47 LDL Cholesterol Direct 22 mg/dL (50-130) L 11/27/18 21:47 HDL Cholesterol 21 mg/dL (40-59) L 11/27/18 21:47 Cholesterol/HDL Ratio 14.57 % 11/27/18 21:47 TSH 0.010 mlU/mL (0.270-4.200) L 11/27/18 21:47 Free T4 0.92 ng/dL (0.76-1.46) 11/27/18 22:49 Urine Color [place] (Yellow) 11/28/18 03:31 Urine Turbidity Slightly-cloudy (Clear) 11/28/18 03:31 Urine pH 6.0 (5.0-7.0) 11/28/18 03:31 Ur Specific [place] 1.019 (1.003-1.030) 11/28/18 03:31 Urine Protein 100 mg/dl mg/dL (Negative) 11/28/18 03:31 Urine Glucose (UA) Neg mg/dL (Negative) 11/28/18 03:31 Urine Ketones Neg mg/dL (Negative) 11/28/18 03:31 Urine Blood Sm (Negative) 11/28/18 03:31 Urine Nitrite Neg (Negative) 11/28/18 03:31 Urine Bilirubin Mod (Negative) 11/28/18 03:31 Urine Ictotest Positive (Negative) 11/28/18 03:31 Urine Urobilinogen 4.0 mg/dL (<2.0) 11/28/18 03:31 Ur Leukocyte Esterase Mod (Negative) 11/28/18 03:31 Urine WBC (Auto) 114.0 /HPF (0.0-6.0) H 11/28/18 03:31 Urine RBC (Auto) 7.0 /HPF (0.0-6.0) 11/28/18 03:31 U Epithel Cells (Auto) 1.0 /HPF (0-13.0) 11/28/18 03:31 Urine Bacteria (Auto) 4+ /HPF (Negative) 11/28/18 03:31 Amorphous Crystals Few 11/28/18 03:31 Urine Mucus Few /HPF 11/28/18 03:31 Active Medications - Current Medications Current Medications: Generic Name Dose Route Start Last Admin Trade Name Freq PRN Reason Stop Dose Admin Acetaminophen 650 mg 11/28/18 02:40 Tylenol PO Q4H PRN Pain MILD(1-3)/Fever >100.5/ROSALES Aspirin 325 mg 11/28/18 10:00 11/28/18 10:19 Aspirin PO 325 mg QDAY ALEXSANDRA Administration Atorvastatin Calcium 40 mg 11/28/18 22:00 11/28/18 21:00 Lipitor PO 40 mg QHS ALEXSANDRA Administration Dextrose 50 ml 11/28/18 03:08 D50w (25gm) Syringe IV PRN PRN Hypoglycemia Sodium Chloride 1,000 mls @ 125 mls/hr 11/28/18 03:00 11/29/18 05:18 Nacl 0.9% 1000 Ml IV 125 mls/hr DIRECT ALEXSANDRA Administration Insulin Glargine 10 units 11/28/18 22:00 11/28/18 22:51 Lantus SUB-Q Not Given QHS [facility] Insulin Human Lispro 0 unit 11/28/18 07:30 11/28/18 22:51 Humalog SUB-Q Not Given ACHS [facility] Protocol Morphine Sulfate 2 mg 11/28/18 02:40 Morphine IV Q3H PRN Pain, Moderate (4-6) Ondansetron HCl 4 mg 11/28/18 02:40 Zofran IV Q8H PRN Nausea And Vomiting Oxycodone/Acetaminophen 1 tab 11/28/18 02:40 Percocet 5/325 PO Q4H PRN Pain, Moderate (4-6) Sodium Chloride 10 ml 11/28/18 10:00 11/28/18 22:30 Sodium Chloride Flush Syringe 10 Ml IV 10 ml BID ALEXSANDRA Administration Sodium Chloride 10 ml 11/28/18 02:40 Sodium Chloride Flush Syringe 10 Ml IV PRN PRN LINE FLUSH
[2018-11-29 09:19] LABS: Hematocrit 34.3 % (35.5-45.6); Hemoglobin 11.6 gm/dl (11.8-15.2); Mean Corpuscular HGB Conc 34 % (32-34); Mean Corpuscular Volume 93 fl (84-94); Platelet Count 294 K/mm3 (140-440)
[2018-11-29 09:20] LABS: Red Cell Distribution Width 24.9 % (13.2-15.2)
[2018-11-29 09:50] LABS: Albumin 2.4 g/dL (3.9-5); Calcium 9.7 mg/dL (8.4-10.2)
[2018-11-29 10:49] LABS: Basophils % (Manual) 0 % (0.0-1.8); Total Cells Counted 100
[2018-11-29 10:50] LABS: Anisocytosis 2+; Hypochromasia 1+; Poikilocytosis 1+
[2018-11-29 10:51] LABS: Platelet Estimate Consistent w Auto; Target Cells 2+
[2018-11-29] MEDS ORDERED: KIONEX PO ONE ×2 (11:00→20:08)
[2018-11-29] MEDS: ASPIRIN PO SCH (11:41)
--- NOTE | 2018-11-29 11:46 | Consultation ---
History of Present Illness Consult date: 11/29/18 Consult reason: elevated troponin History of present illness: The patient is a 73-year-old man with multiple comorbidities, appears elderly, frail with chronic hypertension, diabetes, hyperlipidemia and thyroid disease. He is a poor historian, and there is no documented history of significant cardiac disease or cardiomyopathy. He was brought to the hospital with complaints of weakness, and has evidently a skin infection in both lower extremities. On presentation, there were multiple severe abnormalities. There was severe renal failure with a creatinine 3.8-4.5, severe hyperkalemia with a potassium of 8.4. In addition, the patient was hyperthyroid with a TSH of 0.01, and and unusually severely elevated total bilirubin of 12. In this milieu, the patient had cardiac enzymes measured, which showed a troponin level that was mildly elevated but consistent on serial measurements at 0.08-0.10. Cardiology consultation was requested for elevated troponin. The patient is comfortable, with no complaints of chest pain or shortness of breath. The ECG on presentation was a mild sinus tachycardia, with leftward axis, no acute ischemic changes. Today, he has trended down to a normal sinus rhythm at 87. Past History Past Medical History: diabetes, hypertension Past Surgical History: No surgical history Social history: other (patient admits to occasional alcohol use, but denies tobacco or illicit drug use) Family history: other (reviewed and noncontributory) Medications and Allergies Allergies Allergy/AdvReac Type Severity Reaction Status Date / Time No Known Allergies Allergy Verified 11/27/18 23:55 Home Medications Medication Instructions Recorded Confirmed Last Taken Type AtorvaSTATin [Lipitor] 40 mg PO DAILY 11/27/18 11/28/18 11/27/18 22:00 History Cholecalciferol (Vitamin D3) 1,000 1000units PO DAILY 11/27/18 11/28/18 11/27/18 10:00 History [Vitamin D3] Docusate Sodium [Colace] 100 mg PO BID PRN 11/27/18 11/27/18 Unknown History Furosemide [Lasix] 20 mg PO DAILY 11/27/18 11/28/18 11/27/18 10:00 History Hydrocortisone 10 mg PO QAM 11/27/18 11/28/18 11/27/18 10:00 History Hydrocortisone 15 mg PO QPM 11/27/18 11/28/18 11/27/18 22:00 History Levothyroxine [Synthroid] 25 mcg PO QAM 11/27/18 11/28/18 11/27/18 10:00 History Levothyroxine [Synthroid] 112 mcg PO QAM 11/27/18 11/28/18 11/27/18 10:00 History Losartan/Hydrochlorothiazide 1 each PO DAILY 11/27/18 11/28/18 11/27/18 10:00 History [Losartan-Hctz 100-25 mg Tab] Metformin HCl 1,000 mg PO BID 11/27/18 11/28/18 11/27/18 22:00 History Ranitidine HCl [Acid Business Systems Analyst] 150 mg PO DAILY 11/27/18 11/27/18 Unknown History Hydrocortisone [Cortef TAB] 10 mg PO QAM&QHS 11/28/18 11/28/18 11/27/18 22:00 History Tylenol 500 PO 11/28/18 Unknown History Active Meds: Active Medications Acetaminophen (Tylenol) 650 mg PO Q4H PRN PRN Reason: Pain MILD(1-3)/Fever >100.5/ROSALES Aspirin (Aspirin) 325 mg PO QDAY [facility] Last Admin: 11/28/18 10:19 Dose: 325 mg Documented by: Atorvastatin Calcium (Lipitor) 40 mg PO QHS [facility] Last Admin: 11/28/18 21:00 Dose: 40 mg Documented by: Dextrose (D50w (25gm) Syringe) 50 ml IV PRN PRN PRN Reason: Hypoglycemia Sodium Chloride (Nacl 0.9% 1000 Ml) 1,000 mls @ 125 mls/hr IV DIRECT [facility] Last Admin: 11/29/18 05:18 Dose: 125 mls/hr Documented by: [facility]ulin [facility]) [facility] Last Admin: 11/28/18 22:51 Dose: Not Given Documented by: Insulin Human Lispro (Humalog) 0 unit SUB-Q [facility]; Protocol Last Admin: 11/28/18 22:51 Dose: Not Given Documented by: Morphine Sulfate (Morphine) 2 mg IV Q3H PRN PRN Reason: Pain, Moderate (4-6) Ondansetron HCl (Zofran) 4 mg IV Q8H PRN PRN Reason: Nausea And Vomiting Oxycodone/Acetaminophen (Percocet 5/325) 1 tab PO Q4H PRN PRN Reason: Pain, Moderate (4-6) Sodium Chloride (Sodium Chloride Flush Syringe 10 Ml) 10 ml IV BID [facility] Last Admin: 11/28/18 22:30 Dose: 10 ml Documented by: Sodium Chloride (Sodium Chloride Flush Syringe 10 Ml) 10 ml IV PRN PRN PRN Reason: LINE FLUSH Review of Systems ROS unobtainable: due to mental status Physical Examination Vital Signs Temp Pulse Resp BP Pulse Ox 97.5 F L 106 H 20 93/57 95 11/27/18 20:57 11/27/18 20:57 11/27/18 20:57 11/27/18 20:57 11/27/18 20:57 General appearance: no acute distress, cachectic, disheveled HEENT: Positive: PERRL Neck: Positive: neck supple Cardiac: Positive: Reg Rate and Rhythm Lungs: Positive: Decreased Breath Sounds Neuro: Positive: Grossly Intact Abdomen: Positive: Soft Male genitourinary: Positive: deferred Skin: Positive: Clear Extremities: Absent: edema Results 11/29/18 08:53 11/29/18 08:53 Cardiac Enzymes 11/29/18 Range/Units 08:53 AST 158 H (5-40) units/L CBC 11/29/18 Range/Units 08:53 WBC 12.9 H (4.5-11.0) K/mm3 RBC 3.70 (3.65-5.03) M/mm3 Hgb 11.6 L (11.8-15.2) gm/dl Hct 34.3 L (35.5-45.6) % Plt Count 294 (140-440) K/mm3 Lymph # Body Trimmer Upholsterer Comprehensive Metabolic Panel 11/28/18 11/29/18 Range/Units 15:56 08:53 Sodium 140 146 H (137-145) mmol/L Potassium 5.8 H 5.1 H (3.6-5.0) mmol/L Chloride 103.6 112.0 H (98-107) mmol/L Carbon Dioxide 23 24 (22-30) mmol/L BUN 80 H 79 H (9-20) mg/dL Creatinine 4.5 H 4.3 H (0.8-1.5) mg/dL Glucose 147 H 115 H (75-100) mg/dL Calcium 9.7 9.7 (8.4-10.2) mg/dL AST 158 H (5-40) units/L ALT 86 H (7-56) units/L Alkaline Phosphatase 971 H (35-129) units/L Total Protein 6.3 (6.3-8.2) g/dL Albumin 2.4 L (3.9-5) g/dL EKG interpretations - Telemetry EKG Rhythm: Sinus Tachycardia Assessment and Plan - Patient Problems (1) Elevated troponin Current Visit: Yes Status: Acute Plan to address problem: The mild isolated troponin elevation recent nonspecific finding in the setting of acute renal failure and acute severe multiple metabolic abnormalities as described above, no further cardiac workup is indicated and absence of cardiac related symptoms. We'll follow on a when necessary basis.
[2018-11-29] MEDS: SODIUM CHLORIDE FLUSH SYRINGE 10 ML IV SCH ×2 (11:48→22:49)
--- NOTE | 2018-11-29 13:12 | Consultation ---
History of Present Illness - Reason for Consult Consult date: 11/29/18 acute renal failure, hyperkalemia - History of Present Illness The patient is a 73 YO AAM with history significant for DM type 2, HTN and HLD who presented to [facility] ED via EMS from home with complaint of generalized weakness, body aches, easy fatigability and Falls. Patient is very poor historian and most of the information was obtained from previous documentation. History was also positive for diarrhea, generalized abdominal pain and shortness of breath. No h/o chest pain, fever, chills, cough, orthopnea, PND, urinary symptoms, headache, nausea, vomiting, dizziness, syncope or loss of consciousness. Patient was recently told about a week ago at [facility] that he has some form of cancer. His BP has been low, improving now. Creatinine was 3.4, potassium 8.4 and WBC 11.3 on admission. Potassium level is improving. Nephrology was consulted for further evaluation. Past History Past Medical History: diabetes, hypertension, hyperlipidemia Past Surgical History: No surgical history Social history: other (patient admits to occasional alcohol use, but denies tobacco or illicit drug use) Family history: other (reviewed and noncontributory) Medications and Allergies Allergies Allergy/AdvReac Type Severity Reaction Status Date / Time No Known Allergies Allergy Verified 11/27/18 23:55 Home Medications Medication Instructions Recorded Confirmed Last Taken Type AtorvaSTATin [Lipitor] 40 mg PO DAILY 11/27/18 11/28/18 11/27/18 22:00 History Cholecalciferol (Vitamin D3) 1,000 1000units PO DAILY 11/27/18 11/28/18 11/27/18 10:00 History [Vitamin D3] Docusate Sodium [Colace] 100 mg PO BID PRN 11/27/18 11/27/18 Unknown History Furosemide [Lasix] 20 mg PO DAILY 11/27/18 11/28/18 11/27/18 10:00 History Hydrocortisone 10 mg PO QAM 11/27/18 11/28/18 11/27/18 10:00 History Hydrocortisone 15 mg PO QPM 11/27/18 11/28/18 11/27/18 22:00 History Levothyroxine [Synthroid] 25 mcg PO QAM 11/27/18 11/28/18 11/27/18 10:00 History Levothyroxine [Synthroid] 112 mcg PO QAM 11/27/18 11/28/18 11/27/18 10:00 History Losartan/Hydrochlorothiazide 1 each PO DAILY 11/27/18 11/28/18 11/27/18 10:00 History [Losartan-Hctz 100-25 mg Tab] Metformin HCl 1,000 mg PO BID 11/27/18 11/28/18 11/27/18 22:00 History Ranitidine HCl [Acid Pharmacy Services Director] 150 mg PO DAILY 11/27/18 11/27/18 Unknown History Hydrocortisone [Cortef TAB] 10 mg PO QAM&QHS 11/28/18 11/28/18 11/27/18 22:00 History Tylenol 500 PO 11/28/18 Unknown History Active Meds: Active Medications Acetaminophen (Tylenol) 650 mg PO Q4H PRN PRN Reason: Pain MILD(1-3)/Fever >100.5/ROSALES Aspirin (Aspirin) 325 mg PO QDAY [facility] Last Admin: 11/29/18 11:41 Dose: 325 mg Documented by: Atorvastatin Calcium (Lipitor) 40 mg PO QHS [facility] Last Admin: 11/28/18 21:00 Dose: 40 mg Documented by: Dextrose (D50w (25gm) Syringe) 50 ml IV PRN PRN PRN Reason: Hypoglycemia Sodium Chloride (Nacl 0.9% 1000 Ml) 1,000 mls @ 125 mls/hr IV DIRECT [facility] Last Admin: 11/29/18 05:18 Dose: 125 mls/hr Documented by: [facility]) [facility] Last Admin: 11/28/18 22:51 Dose: Not Given Documented by: Insulin Human Lispro (Humalog) 0 unit SUB-Q [facility]; Protocol Last Admin: 11/29/18 11:49 Dose: Not Given Documented by: Morphine Sulfate (Morphine) 2 mg IV Q3H PRN PRN Reason: Pain, Moderate (4-6) Ondansetron HCl (Zofran) 4 mg IV Q8H PRN PRN Reason: Nausea And Vomiting Oxycodone/Acetaminophen (Percocet 5/325) 1 tab PO Q4H PRN PRN Reason: Pain, Moderate (4-6) Last Admin: 11/29/18 11:41 Dose: 1 tab Documented by: Sodium Chloride (Sodium Chloride Flush Syringe 10 Ml) 10 ml IV BID [facility] Last Admin: 11/29/18 11:48 Dose: 10 ml Documented by: Sodium Chloride (Sodium Chloride Flush Syringe 10 Ml) 10 ml IV PRN PRN PRN Reason: LINE FLUSH Review of Systems ROS unobtainable: due to mental status (please see HPI.) Exam - Vital Signs Vital signs: Vital Signs Temp Pulse Resp BP Pulse Ox 97.5 F L 106 H 20 93/57 95 11/27/18 20:57 11/27/18 20:57 11/27/18 20:57 11/27/18 20:57 11/27/18 20:57 - General Appearance General appearance: well-developed, appears stated age, other (not in distress, appears emaciated) EENT: ATNC, PERRL, hearing intact, vision intact, sclera incterus Neck: Present: neck supple, trachea midline Respiratory: Clear to Ascultation Heart: regular, S1S2, no murmurs Gastrointestinal: Present: normoactive bowel sounds. Absent: tenderness Integumentary: other (right leg dressing noted) Neurologic: no focal deficit, no asterixis, confused, disoriented Musculoskeletal: Present: other (bilateral trace LE edema noted, R > L) Psychiatric: cooperative Results - Lab Results 11/29/18 08:53 11/29/18 08:53 Most recent lab results Calcium 9.7 mg/dL (8.4-10.2) 11/29/18 08:53 Magnesium 3.10 mg/dL (1.7-2.3) H 11/28/18 15:56 - Image Kidney/bladder ultrasound: report reviewed Assessment and Plan 1. Acute kidney injury: Likely hemodynamic / Vasomotor FIORDALIZA in the setting of hypotension. Baseline renal function is unknown, suspect some degree of CKD. Hepato-renal syndrome is not ruled out. Hold off Midodrine due to tachycardia. Urine studies ordered. Renal US was negative. Continue IV fluids. Renal prognosis is guarded to poor. Monitor renal function. Avoid nephrotoxic agents. Meds dosage based on GFR. 2. FEN: Hyperkalemia, secondary to FIORDALIZA. K level is improving. Kayexlaate ordered. Mild hypernatremia, monitor. Continue IV fluids. 3. Liver mass: Primary versus metastasis. Records from [facility]. 4. Abnormal liver function tests: Elevated Transaminases, T.Bilirubin and Alk phos. 5. Elevated troponin: Followed by cards. 6. Right lower extremity wound: Wound care. 7. Gen. debility / Deconditioning.
--- NOTE | 2018-11-29 16:13 | Gastroenterology Consultation ---
History of Present Illness - Reason for Consult Consult date: 11/29/18 Elevated liver enzymes Requesting physician: DESTINEE JAMES - History of Present Illness This is a 73 yo male, with pmh of DM, thyroid disorder, and h/o pituitary tumor s/p surgery admitted for weakness and found to have worsening kidney function, and elevated liver enzymes. History is limited. Patient able to answer some questions but does not give much history. Spoke with the daughter over the phone. Patient was [facility] last [facility] for about 1 week or so and discharged last Thursday after liver biopsy for liver mass. She does not know the results yet. Work up here include abdominal US which is concerning for metastatic lesions in the liver. Past History Past Medical History: diabetes, hypertension, hyperlipidemia Past Surgical History: No surgical history Social history: other (patient admits to occasional alcohol use, but denies tobacco or illicit drug use) Family history: other (reviewed and noncontributory) Medications and Allergies Allergies Allergy/AdvReac Type Severity Reaction Status Date / Time No Known Allergies Allergy Verified 11/27/18 23:55 Home Medications Medication Instructions Recorded Confirmed Last Taken Type AtorvaSTATin [Lipitor] 40 mg PO DAILY 11/27/18 11/28/18 11/27/18 22:00 History Cholecalciferol (Vitamin D3) 1,000 1000units PO DAILY 11/27/18 11/28/18 11/27/18 10:00 History [Vitamin D3] Docusate Sodium [Colace] 100 mg PO BID PRN 11/27/18 11/27/18 Unknown History Furosemide [Lasix] 20 mg PO DAILY 11/27/18 11/28/18 11/27/18 10:00 History Hydrocortisone 10 mg PO QAM 11/27/18 11/28/18 11/27/18 10:00 History Hydrocortisone 15 mg PO QPM 11/27/18 11/28/18 11/27/18 22:00 History Levothyroxine [Synthroid] 25 mcg PO QAM 11/27/18 11/28/18 11/27/18 10:00 History Levothyroxine [Synthroid] 112 mcg PO QAM 11/27/18 11/28/18 11/27/18 10:00 History Losartan/Hydrochlorothiazide 1 each PO DAILY 11/27/18 11/28/18 11/27/18 10:00 History [Losartan-Hctz 100-25 mg Tab] Metformin HCl 1,000 mg PO BID 11/27/18 11/28/18 11/27/18 22:00 History Ranitidine HCl [Acid Superintendent Circus] 150 mg PO DAILY 11/27/18 11/27/18 Unknown History Hydrocortisone [Cortef TAB] 10 mg PO QAM&QHS 11/28/18 11/28/18 11/27/18 22:00 History Tylenol 500 PO 11/28/18 Unknown History Active Meds: Active Medications Acetaminophen (Tylenol) 650 mg PO Q4H PRN PRN Reason: Pain MILD(1-3)/Fever >100.5/ROSALES Aspirin (Aspirin) 325 mg PO QDAY [facility] Last Admin: 11/29/18 11:41 Dose: 325 mg Documented by: Atorvastatin Calcium (Lipitor) 40 mg PO QHS [facility] Last Admin: 11/28/18 21:00 Dose: 40 mg Documented by: Dextrose (D50w (25gm) Syringe) 50 ml IV PRN PRN PRN Reason: Hypoglycemia Sodium Chloride (Nacl 0.9% 1000 Ml) 1,000 mls @ 125 mls/hr IV DIRECT [facility] Last Admin: 11/29/18 05:18 Dose: 125 mls/hr Documented by: Insulin [facility] ([facility]) [facility] Last Admin: 11/28/18 22:51 Dose: Not Given Documented by: Insulin Human Lispro (Humalog) 0 unit SUB-Q [facility]; Protocol Last Admin: 11/29/18 11:49 Dose: Not Given Documented by: Morphine Sulfate (Morphine) 2 mg IV Q3H PRN PRN Reason: Pain, Moderate (4-6) Ondansetron HCl (Zofran) 4 mg IV Q8H PRN PRN Reason: Nausea And Vomiting Oxycodone/Acetaminophen (Percocet 5/325) 1 tab PO Q4H PRN PRN Reason: Pain, Moderate (4-6) Last Admin: 11/29/18 11:41 Dose: 1 tab Documented by: Sodium Chloride (Sodium Chloride Flush Syringe 10 Ml) 10 ml IV BID [facility] Last Admin: 11/29/18 11:48 Dose: 10 ml Documented by: Sodium Chloride (Sodium Chloride Flush Syringe 10 Ml) 10 ml IV PRN PRN PRN Reason: LINE FLUSH Review of Systems - Review of Systems Constitutional: weight loss Ears, Nose, Throat: mouth pain Cardiovascular: no chest pain Respiratory: no cough Gastrointestinal: no abdominal pain, no nausea, no vomiting, no diarrhea, no constipation Neurological: weakness Psychiatric: depression Hematologic/Lymphatic: no easy bleeding Exam - Constitutional Vital Signs: Temp Pulse Resp BP Pulse Ox 96.2 F L 103 H 18 98/65 97 11/29/18 13:45 11/29/18 13:45 11/29/18 13:45 11/29/18 13:45 11/29/18 13:45 General appearance: no acute distress - EENT Eyes: EOM intact ENT: hearing intact, clear oral mucosa, poor dentition - Neck Neck: supple - Respiratory Respiratory effort: normal Respiratory: bilateral: CTA - Cardiovascular Rhythm: regular Heart Sounds: Present: S1 & S2 - Gastrointestinal General gastrointestinal: Present: soft, non-tender, non-distended - Integumentary Integumentary: Present: clear, warm - Musculoskeletal Musculoskeletal: normal - Psychiatric Psychiatric: cooperative - Labs CBC & Chem 7: 11/29/18 08:53 11/29/18 08:53 Lab Results: Laboratory Results - last 24 hr 11/28/18 11/28/18 11/28/18 01:08 15:56 15:56 WBC RBC Hgb Hct MCV MCH MCHC RDW Plt Count Lymph % (Auto) Lymph # Add Manual Diff Total Counted Seg Neutrophils % Seg Neuts % (Manual) Band Neutrophils % Lymphocytes % (Manual) Reactive Lymphs % (Man) Monocytes % (Manual) Eosinophils % (Manual) Basophils % (Manual) Metamyelocytes % Myelocytes % Promyelocytes % Blast Cells % Nucleated RBC % Seg Neutrophils # Man Band Neutrophils # Lymphocytes # (Manual) Abs React Lymphs (Man) Monocytes # (Manual) Eosinophils # (Manual) Basophils # (Manual) Metamyelocytes # Myelocytes # Promyelocytes # Blast Cells # WBC Morphology Hypersegmented Neuts Hyposegmented Neuts Hypogranular Neuts Smudge Cells Toxic Granulation Toxic Vacuolation Dohle Bodies Pelger-Huet Anomaly Jessica Rods Platelet Estimate Clumped Platelets Plt Clumps, EDTA Large Platelets Giant Platelets Platelet Satelliting Plt Morphology Comment RBC Morphology Dimorphic RBCs Polychromasia Hypochromasia Poikilocytosis Anisocytosis Microcytosis Macrocytosis Spherocytes Pappenheimer Bodies Sickle Cells Target Cells Tear Drop Cells Ovalocytes Helmet Cells Perez-Essex Bodies [place] Rings [place] Cells Bite Cells Crenated Cell Elliptocytes Acanthocytes (Spur) Rouleaux Hemoglobin C Crystals Schistocytes Malaria parasites Hugo Bodies Hem Pathologist Commnt Sodium 140 Potassium 5.8 H Chloride 103.6 Carbon Dioxide 23 Anion Gap 19 BUN 80 H Creatinine 4.5 H Estimated GFR 16 BUN/Creatinine Ratio 18 Glucose 147 H POC Glucose 246 H Calcium 9.7 Magnesium 3.10 H Total Bilirubin AST ALT Alkaline Phosphatase Troponin T 0.088 H D Total Protein Albumin Albumin/Globulin Ratio Prostate Specific Ag 11/28/18 11/28/18 11/29/18 18:34 21:52 01:05 WBC RBC Hgb Hct MCV MCH MCHC RDW Plt Count Lymph % (Auto) Lymph # Add Manual Diff Total Counted Seg Neutrophils % Seg Neuts % (Manual) Band Neutrophils % Lymphocytes % (Manual) Reactive Lymphs % (Man) Monocytes % (Manual) Eosinophils % (Manual) Basophils % (Manual) Metamyelocytes % Myelocytes % Promyelocytes % Blast Cells % Nucleated RBC % Seg Neutrophils # Man Band Neutrophils # Lymphocytes # (Manual) Abs React Lymphs (Man) Monocytes # (Manual) Eosinophils # (Manual) Basophils # (Manual) Metamyelocytes # Myelocytes # Promyelocytes # Blast Cells # WBC Morphology Hypersegmented Neuts Hyposegmented Neuts Hypogranular Neuts Smudge Cells Toxic Granulation Toxic Vacuolation Dohle Bodies Pelger-Huet Anomaly Jessica Rods Platelet Estimate Clumped Platelets Plt Clumps, EDTA Large Platelets Giant Platelets Platelet Satelliting Plt Morphology Comment RBC Morphology Dimorphic RBCs Polychromasia Hypochromasia Poikilocytosis Anisocytosis Microcytosis Macrocytosis Spherocytes Pappenheimer Bodies Sickle Cells Target Cells Tear Drop Cells Ovalocytes Helmet Cells Perez-Essex Bodies [place] Rings [place] Cells Bite Cells Crenated Cell Elliptocytes Acanthocytes (Spur) Rouleaux Hemoglobin C Crystals Schistocytes Malaria parasites Hugo Bodies Hem Pathologist Commnt Sodium Potassium Chloride Carbon Dioxide Anion Gap BUN Creatinine Estimated GFR BUN/Creatinine Ratio Glucose POC Glucose 120 H 117 H 104 Calcium Magnesium Total Bilirubin AST ALT Alkaline Phosphatase Troponin T Total Protein Albumin Albumin/Globulin Ratio Prostate Specific Ag 11/29/18 11/29/18 11/29/18 08:06 08:53 08:53 WBC 12.9 H RBC 3.70 Hgb 11.6 L Hct 34.3 L MCV 93 MCH 31 MCHC 34 RDW 24.9 H Plt Count 294 Lymph % (Auto) Felt Carbonizer Lymph # Felt Carbonizer Add Manual Diff Complete Total Counted 100 Seg Neutrophils % Felt Carbonizer Seg Neuts % (Manual) 90.0 H Band Neutrophils % 0 Lymphocytes % (Manual) 4.0 L Reactive Lymphs % (Man) 0 Monocytes % (Manual) 2.0 Eosinophils % (Manual) 3.0 Basophils % (Manual) 0 Metamyelocytes % 1.0 Myelocytes % 0 Promyelocytes % 0 Blast Cells % 0 Nucleated RBC % 2.0 H Seg Neutrophils # Man 11.6 H Band Neutrophils # 0.0 Lymphocytes # (Manual) 0.5 L Abs React Lymphs (Man) 0.0 Monocytes # (Manual) 0.3 Eosinophils # (Manual) 0.4 Basophils # (Manual) 0.0 Metamyelocytes # 0.1 Myelocytes # 0.0 Promyelocytes # 0.0 Blast Cells # 0.0 WBC Morphology Not Reportable Hypersegmented Neuts Not Reportable Hyposegmented Neuts Not Reportable Hypogranular Neuts Not Reportable Smudge Cells Not Reportable Toxic Granulation Not Reportable Toxic Vacuolation Not Reportable Dohle Bodies Not Reportable Pelger-Huet Anomaly Not Reportable Jessica Rods Not Reportable Platelet Estimate Consistent w auto Clumped Platelets Not Reportable Plt Clumps, EDTA Not Reportable Large Platelets Not Reportable Giant Platelets Not Reportable Platelet Satelliting Not Reportable Plt Morphology Comment Not Reportable RBC Morphology Not Reportable Dimorphic RBCs Not Reportable Polychromasia Not Reportable Hypochromasia 1+ Poikilocytosis 1+ Anisocytosis 2+ Microcytosis Few Macrocytosis Not Reportable Spherocytes Not Reportable Pappenheimer Bodies Not Reportable Sickle Cells Not Reportable Target Cells 2+ Tear Drop Cells Not Reportable Ovalocytes Not Reportable Helmet Cells Not Reportable Perez-Essex Bodies Not Reportable [place] Rings Not Reportable [place] Cells Not Reportable Bite Cells Not Reportable Crenated Cell Not Reportable Elliptocytes Not Reportable Acanthocytes (Spur) Not Reportable Rouleaux Not Reportable Hemoglobin C Crystals Not Reportable Schistocytes Not Reportable Malaria parasites Not Reportable Hugo Bodies Not Reportable Hem Pathologist Commnt No Sodium 146 H Potassium 5.1 H Chloride 112.0 H Carbon Dioxide 24 Anion Gap 15 BUN 79 H Creatinine 4.3 H Estimated GFR 16 BUN/Creatinine Ratio 18 Glucose 115 H POC Glucose 94 Calcium 9.7 Magnesium Total Bilirubin 13.10 H AST 158 H ALT 86 H Alkaline Phosphatase 971 H Troponin T 0.095 H Total Protein 6.3 Albumin 2.4 L Albumin/Globulin Ratio 0.6 Prostate Specific Ag 11/29/18 11/29/18 08:53 11:43 WBC RBC Hgb Hct MCV MCH MCHC RDW Plt Count Lymph % (Auto) Lymph # Add Manual Diff Total Counted Seg Neutrophils % Seg Neuts % (Manual) Band Neutrophils % Lymphocytes % (Manual) Reactive Lymphs % (Man) Monocytes % (Manual) Eosinophils % (Manual) Basophils % (Manual) Metamyelocytes % Myelocytes % Promyelocytes % Blast Cells % Nucleated RBC % Seg Neutrophils # Man Band Neutrophils # Lymphocytes # (Manual) Abs React Lymphs (Man) Monocytes # (Manual) Eosinophils # (Manual) Basophils # (Manual) Metamyelocytes # Myelocytes # Promyelocytes # Blast Cells # WBC Morphology Hypersegmented Neuts Hyposegmented Neuts Hypogranular Neuts Smudge Cells Toxic Granulation Toxic Vacuolation Dohle Bodies Pelger-Huet Anomaly Jessica Rods Platelet Estimate Clumped Platelets Plt Clumps, EDTA Large Platelets Giant Platelets Platelet Satelliting Plt Morphology Comment RBC Morphology Dimorphic RBCs Polychromasia Hypochromasia Poikilocytosis Anisocytosis Microcytosis Macrocytosis Spherocytes Pappenheimer Bodies Sickle Cells Target Cells Tear Drop Cells Ovalocytes Helmet Cells Perez-Essex Bodies [place] Rings [place] Cells Bite Cells Crenated Cell Elliptocytes Acanthocytes (Spur) Rouleaux Hemoglobin C Crystals Schistocytes Malaria parasites Hugo Bodies Hem Pathologist Commnt Sodium Potassium Chloride Carbon Dioxide Anion Gap BUN Creatinine Estimated GFR BUN/Creatinine Ratio Glucose POC Glucose 98 Calcium Magnesium Total Bilirubin AST ALT Alkaline Phosphatase Troponin T Total Protein Albumin Albumin/Globulin Ratio Prostate Specific Ag 0.89 Assessment and Plan This is a 73 yo male, with pmh of DM, thyroid disorder, and h/o pituitary tumor s/p surgery admitted for weakness and found to have worsening kidney function, and elevated liver enzymes. # Jaundice # Liver mass - US with hepatomegaly with heterogenous echotexture of the entire liver suspicious for metastatic disease, poorly marginated mass in the right hepatic lobe at least 4 cm. - s/p liver bx at the [facility] last month per family. - concerning for hepatic malignancy vs metastatic disease from another source Rec: - will check MRCP given bilirubin elevated. No contrast given FIORDALIZA. - will check acute hepatitis panel, liver serologies, and AFP. - will follow. - obtain records from the [facility].
[2018-11-29] MEDS ORDERED: XYLOCAINE TOPICAL 4% TP ONE (16:49)
--- NOTE | 2018-11-29 16:54 | Consultation ---
History of Present Illness Consult date: 11/29/18 Chief complaint: RIGHT LEG WOUND - History of present illness History of present illness: 73 yo M with hx of DM, HTN presents to hospital with c/o weakness and states his daughter wanted to make sure everything was ok. He recently was diagnosed with a liver mass for which he underwent bx at the [facility]. He states he feels fine and has no complaints. He has a right leg wound that per his daughter has been there for at least a month. She states the patient has been caring for it and hiding it. The patient is a poor historian. Past History Past Medical History: diabetes, hypertension, hyperlipidemia Past Surgical History: No surgical history Social history: other (patient admits to occasional alcohol use, but denies tobacco or illicit drug use) Family history: other (reviewed and noncontributory) Medications and Allergies Allergies Allergy/AdvReac Type Severity Reaction Status Date / Time No Known Allergies Allergy Verified 11/27/18 23:55 Home Medications Medication Instructions Recorded Confirmed Last Taken Type AtorvaSTATin [Lipitor] 40 mg PO DAILY 11/27/18 11/28/18 11/27/18 22:00 History Cholecalciferol (Vitamin D3) 1,000 1000units PO DAILY 11/27/18 11/28/18 11/27/18 10:00 History [Vitamin D3] Docusate Sodium [Colace] 100 mg PO BID PRN 11/27/18 11/27/18 Unknown History Furosemide [Lasix] 20 mg PO DAILY 11/27/18 11/28/18 11/27/18 10:00 History Hydrocortisone 10 mg PO QAM 11/27/18 11/28/18 11/27/18 10:00 History Hydrocortisone 15 mg PO QPM 11/27/18 11/28/18 11/27/18 22:00 History Levothyroxine [Synthroid] 25 mcg PO QAM 11/27/18 11/28/18 11/27/18 10:00 History Levothyroxine [Synthroid] 112 mcg PO QAM 11/27/18 11/28/18 11/27/18 10:00 History Losartan/Hydrochlorothiazide 1 each PO DAILY 11/27/18 11/28/18 11/27/18 10:00 History [Losartan-Hctz 100-25 mg Tab] Metformin HCl 1,000 mg PO BID 0311/28/18 11/27/18 22:00 History Ranitidine HCl [Acid Donor Services Team Leader] 150 mg PO DAILY 11/27/18 11/27/18 Unknown History Hydrocortisone [Cortef TAB] 10 mg PO QAM&QHS 11/28/18 11/28/18 11/27/18 22:00 History Tylenol 500 PO 11/28/18 Unknown History Active Meds: Active Medications Acetaminophen (Tylenol) 650 mg PO Q4H PRN PRN Reason: Pain MILD(1-3)/Fever >100.5/ROSALES Aspirin (Aspirin) 325 mg PO QDAY [facility] Last Admin: 11/29/18 11:41 Dose: 325 mg Documented by: Atorvastatin Calcium (Lipitor) 40 mg PO QHS [facility] Last Admin: 11/28/18 21:00 Dose: 40 mg Documented by: Dextrose (D50w (25gm) Syringe) 50 ml IV PRN PRN PRN Reason: Hypoglycemia Sodium Chloride (Nacl 0.9% 1000 Ml) 1,000 mls @ 125 mls/hr IV DIRECT [facility] Last Admin: 11/29/18 05:18 Dose: 125 mls/hr Documented by: Insulin [facility] ([facility]) [facility] Last Admin: 11/28/18 22:51 Dose: Not Given Documented by: Insulin Human Lispro (Humalog) 0 unit SUB-Q [facility]; Protocol Last Admin: 11/29/18 11:49 Dose: Not Given Documented by: Morphine Sulfate (Morphine) 2 mg IV Q3H PRN PRN Reason: Pain, Moderate (4-6) Ondansetron HCl (Zofran) 4 mg IV Q8H PRN PRN Reason: Nausea And Vomiting Oxycodone/Acetaminophen (Percocet 5/325) 1 tab PO Q4H PRN PRN Reason: Pain, Moderate (4-6) Last Admin: 11/29/18 11:41 Dose: 1 tab Documented by: Sodium Chloride (Sodium Chloride Flush Syringe 10 Ml) 10 ml IV BID [facility] Last Admin: 11/29/18 11:48 Dose: 10 ml Documented by: Sodium Chloride (Sodium Chloride Flush Syringe 10 Ml) 10 ml IV PRN PRN PRN Reason: LINE FLUSH Review of Systems All systems: negative (10 pt ROS peformed and negative except for that listed in HPI) Exam Vital Signs Temp Pulse Resp BP Pulse Ox 97.5 F L 106 H 20 93/57 95 11/27/18 20:57 11/27/18 20:57 11/27/18 20:57 11/27/18 20:57 11/27/18 20:57 Narrative exam: Gen: AAOx3. NAD CV: s1, S2+ Resp; even and unlabored Abd: soft, NT, ND Ext; RLE with dressing c/d/i. Feet cool. Palpable DP on left but no distal pulses palpable on right. 2+ pitting edema bilaterally. Results - Labs 11/29/18 08:53 11/29/18 08:53 Abnormal lab results 11/28/18 11/28/18 11/28/18 Range/Units 01:08 15:56 15:56 WBC (4.5-11.0) K/mm3 Hgb (11.8-15.2) gm/dl Hct (35.5-45.6) % RDW (13.2-15.2) % Seg Neuts % (Manual) (40.0-70.0) % Lymphocytes % (Manual) (13.4-35.0) % Nucleated RBC % (0.0-0.9) % Seg Neutrophils # Man (1.8-7.7) K/mm3 Lymphocytes # (Manual) (1.2-5.4) K/mm3 Sodium (137-145) mmol/L Potassium 5.8 H (3.6-5.0) mmol/L Chloride (98-107) mmol/L BUN 80 H (9-20) mg/dL Creatinine 4.5 H (0.8-1.5) mg/dL Glucose 147 H (75-100) mg/dL POC Glucose 246 H (70-105) Magnesium 3.10 H (1.7-2.3) mg/dL Total Bilirubin (0.1-1.2) mg/dL AST (5-40) units/L ALT (7-56) units/L Alkaline Phosphatase (35-129) units/L Troponin T 0.088 H D (0.00-0.029) ng/mL Albumin (3.9-5) g/dL 11/28/18 11/28/18 11/29/18 Range/Units 18:34 21:52 08:53 WBC 12.9 H (4.5-11.0) K/mm3 Hgb 11.6 L (11.8-15.2) gm/dl Hct 34.3 L (35.5-45.6) % RDW 24.9 H (13.2-15.2) % Seg Neuts % (Manual) 90.0 H (40.0-70.0) % Lymphocytes % (Manual) 4.0 L (13.4-35.0) % Nucleated RBC % 2.0 H (0.0-0.9) % Seg Neutrophils # Man 11.6 H (1.8-7.7) K/mm3 Lymphocytes # (Manual) 0.5 L (1.2-5.4) K/mm3 Sodium (137-145) mmol/L Potassium (3.6-5.0) mmol/L Chloride (98-107) mmol/L BUN (9-20) mg/dL Creatinine (0.8-1.5) mg/dL Glucose (75-100) mg/dL POC Glucose 120 H 117 H (70-105) Magnesium (1.7-2.3) mg/dL Total Bilirubin (0.1-1.2) mg/dL AST (5-40) units/L ALT (7-56) units/L Alkaline Phosphatase (35-129) units/L Troponin T (0.00-0.029) ng/mL Albumin (3.9-5) g/dL 11/29/18 Range/Units 08:53 WBC (4.5-11.0) K/mm3 Hgb (11.8-15.2) gm/dl Hct (35.5-45.6) % RDW (13.2-15.2) % Seg Neuts % (Manual) (40.0-70.0) % Lymphocytes % (Manual) (13.4-35.0) % Nucleated RBC % (0.0-0.9) % Seg Neutrophils # Man (1.8-7.7) K/mm3 Lymphocytes # (Manual) (1.2-5.4) K/mm3 Sodium 146 H (137-145) mmol/L Potassium 5.1 H (3.6-5.0) mmol/L Chloride 112.0 H (98-107) mmol/L BUN 79 H (9-20) mg/dL Creatinine 4.3 H (0.8-1.5) mg/dL Glucose 115 H (75-100) mg/dL POC Glucose (70-105) Magnesium (1.7-2.3) mg/dL Total Bilirubin 13.10 H (0.1-1.2) mg/dL AST 158 H (5-40) units/L ALT 86 H (7-56) units/L Alkaline Phosphatase 971 H (35-129) units/L Troponin T 0.095 H (0.00-0.029) ng/mL Albumin 2.4 L (3.9-5) g/dL Diabetes panel 11/28/18 11/29/18 Range/Units 15:56 08:53 Sodium 140 146 H (137-145) mmol/L Potassium 5.8 H 5.1 H (3.6-5.0) mmol/L Chloride 103.6 112.0 H (98-107) mmol/L Carbon Dioxide 23 24 (22-30) mmol/L BUN 80 H 79 H (9-20) mg/dL Creatinine 4.5 H 4.3 H (0.8-1.5) mg/dL Glucose 147 H 115 H (75-100) mg/dL Calcium 9.7 9.7 (8.4-10.2) mg/dL AST 158 H (5-40) units/L ALT 86 H (7-56) units/L Alkaline Phosphatase 971 H (35-129) units/L Total Protein 6.3 (6.3-8.2) g/dL Albumin 2.4 L (3.9-5) g/dL Calcium panel 11/28/18 11/29/18 Range/Units 15:56 08:53 Calcium 9.7 9.7 (8.4-10.2) mg/dL Albumin 2.4 L (3.9-5) g/dL Pituitary panel 11/28/18 11/29/18 Range/Units 15:56 08:53 Sodium 140 146 H (137-145) mmol/L Potassium 5.8 H 5.1 H (3.6-5.0) mmol/L Chloride 103.6 112.0 H (98-107) mmol/L Carbon Dioxide 23 24 (22-30) mmol/L BUN 80 H 79 H (9-20) mg/dL Creatinine 4.5 H 4.3 H (0.8-1.5) mg/dL Glucose 147 H 115 H (75-100) mg/dL Calcium 9.7 9.7 (8.4-10.2) mg/dL Adrenal panel 11/28/18 11/29/18 Range/Units 15:56 08:53 Sodium 140 146 H (137-145) mmol/L Potassium 5.8 H 5.1 H (3.6-5.0) mmol/L Chloride 103.6 112.0 H (98-107) mmol/L Carbon Dioxide 23 24 (22-30) mmol/L BUN 80 H 79 H (9-20) mg/dL Creatinine 4.5 H 4.3 H (0.8-1.5) mg/dL Glucose 147 H 115 H (75-100) mg/dL Calcium 9.7 9.7 (8.4-10.2) mg/dL Total Bilirubin 13.10 H (0.1-1.2) mg/dL AST 158 H (5-40) units/L ALT 86 H (7-56) units/L Alkaline Phosphatase 971 H (35-129) units/L Total Protein 6.3 (6.3-8.2) g/dL Albumin 2.4 L (3.9-5) g/dL Assessment and Plan 73 yo M with right lower extremity venous stasis wound Plan: morning caregiver assessment and photos reviewed. 1. Pt will need debridement of overlying eschar. Consent obtained from daughter who is POA over the telephone. Will perform at bedside tomorrow. 2. arterial duplex of RLE 3. elevation of bilateral lower extremities 4. logistics support consult, albumin 2.4 5. prealbumin Thank you, please call with questions
[2018-11-29 17:43] LABS: Calcium 9.7 mg/dL (8.4-10.2)
[2018-11-29] MEDS ORDERED: CALCIUM CHLORIDE 1,000 MG in NACL 0.9% 100 ML IV ONE (20:09)
[2018-11-29] MEDS ORDERED: HumuLIN R IV ONE ×2 (20:10→23:00)
[2018-11-29] MEDS ORDERED: D50W (25GM) Syringe IV ONE (20:10)
[2018-11-29 20:33] LABS: Hepatitis B Surface Antigen Nonreactive (Negative); Hepatitis C Virus Antibody Nonreactive (NonReactive)
--- NOTE | 2018-11-29 21:16 | Vascular Lab Report ---
PROCEDURE: VL ARTERIAL DUPLEX LE RT HISTORY: RLE wound COMPARISONS: FINDINGS: Real-time ultrasound of the right leg was performed using grayscale and color Doppler image s. Peak systolic velocity in the right external iliac artery was 99 cm/s and triphasic; common femoral a rtery 89 cm/s triphasic; proximal superficial femoral artery 88 cm/s triphasic; deep femoral artery 7 3 cm/s triphasic; mid superficial femoral artery 69 cm/s triphasic; distal superficial femoral artery 52 cm/s triphasic; popliteal artery 60 cm/s triphasic; posterior tibial 37 cm/s biphasic; anterior t ibial 16 cm/s biphasic; dorsalis pedis 18 cm/s biphasic. Limited imaging was performed of the left. Peak systolic velocity in the left posterior tibial artery was 57 cm/s and triphasic; anterior tibial artery 24 cm/s biphasic; dorsalis pedis artery 14 cm/s bi phasic. IMPRESSION: The right leg arterial vasculature appears patent. This document is electronically signed by Reilly Harris MD., November 29 2018 09:14:09 PM ET
[2018-11-29] MEDS: D5NS 1,000 ML IV SCH (22:48)
[2018-11-29] MEDS: LANTUS SUB-Q SCH (22:49)
[2018-11-30 06:23] LABS: Albumin 2.2 g/dL (3.9-5); Calcium 9.9 mg/dL (8.4-10.2); Prealbumin 0.24 g/L (0.200-0.400)
--- NOTE | 2018-11-30 06:59 | Progress Note ---
Assessment and Plan 1. Acute kidney injury: Likely hemodynamic / Vasomotor FIORDALIZA in the setting of hypotension. Baseline renal function is unknown, suspect some degree of CKD. Hepato-renal syndrome is not ruled out. Urine studies pending. Renal US was negative. Continue IV fluids. Renal prognosis is guarded to poor. Monitor renal function. Avoid nephrotoxic agents. Meds dosage based on GFR. Renal replacement therapy would not change the overall outcome. 2. FEN: Hyperkalemia, secondary to FIORDALIZA, improved. Mild hypernatremia, monitor. Continue IV fluids. 3. 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 4. Abnormal liver function tests: Elevated Transaminases, T.Bilirubin and Alk phos. 5. Elevated troponin: Followed by cards. 6. Right lower extremity wound: Wound care. 7. Gen. debility / Deconditioning. Subjective Date of service: 11/30/18 Interval history: Patient was seen and examined at the bedside. Objective - Vital Signs Vital signs: Vital Signs - 12hr 11/29/18 11/29/18 11/30/18 20:37 22:00 02:32 Temperature 97.3 F L 97.3 F L Pulse Rate 104 H 99 H 99 H Respiratory 18 18 Rate Blood Pressure 93/59 102/58 O2 Sat by Pulse 100 94 96 Oximetry - General Appearance General appearance: well-developed, appears stated age, cachectic, other (not in distress) EENT: ATNC, sclera incterus Neck: supple Respiratory: Present: Clear to Ascultation Cardiology: regular, S1S2, no murmurs Gastrointestinal: normoactive bowel sounds, distended, hepatomegaly Integumentary: other (right leg wound / dressing) Neurologic: other (able to move extremities) Musculoskeletal: other (b/l LE edema noted) - Lab 11/29/18 08:53 11/30/18 05:24 Most recent lab results Calcium 9.9 mg/dL (8.4-10.2) 11/30/18 05:24 Phosphorus 3.70 mg/dL (2.5-4.5) 11/30/18 05:24 Magnesium 3.10 mg/dL (1.7-2.3) H 11/28/18 15:56 Medications & Allergies - Medications Allergies/Adverse Reactions: Allergies No Known Allergies Allergy (Verified 11/27/18 23:55) Home Medications: Home Medications Medication Instructions Recorded Confirmed Last Taken Type AtorvaSTATin [Lipitor] 40 mg PO DAILY 11/27/18 11/28/18 11/27/18 22:00 History Cholecalciferol (Vitamin D3) 1,000 1000units PO DAILY 11/27/18 11/28/18 11/27/18 10:00 History [Vitamin D3] Docusate Sodium [Colace] 100 mg PO BID PRN 11/27/18 11/27/18 Unknown History Furosemide [Lasix] 20 mg PO DAILY 11/27/18 11/28/18 11/27/18 10:00 History Hydrocortisone 10 mg PO QAM 11/27/18 11/28/18 11/27/18 10:00 History Hydrocortisone 15 mg PO QPM 11/27/18 11/28/18 11/27/18 22:00 History Levothyroxine [Synthroid] 25 mcg PO QAM 11/27/18 11/28/18 11/27/18 10:00 History Levothyroxine [Synthroid] 112 mcg PO QAM 11/27/18 11/28/18 11/27/18 10:00 History Losartan/Hydrochlorothiazide 1 each PO DAILY 11/27/18 11/28/18 11/27/18 10:00 History [Losartan-Hctz 100-25 mg Tab] Metformin HCl 1,000 mg PO BID 11/27/18 11/28/18 11/27/18 22:00 History Ranitidine HCl [Acid Agency Manager] 150 mg PO DAILY 11/27/18 11/27/18 Unknown History Hydrocortisone [Cortef TAB] 10 mg PO QAM&QHS 11/28/18 11/28/18 11/27/18 22:00 History Tylenol 500 mg PO PRN 11/28/18 11/30/18 Unknown History Active Medications: Generic Name Dose Route Start Last Admin Trade Name Freq PRN Reason Stop Dose Admin Acetaminophen 650 mg 11/28/18 02:40 Tylenol PO Q4H PRN Pain MILD(1-3)/Fever >100.5/ROSALES Aspirin 325 mg 11/28/18 10:00 11/29/18 11:41 Aspirin PO 325 mg QDAY ALEXSANDRA Administration Atorvastatin Calcium 40 mg 11/28/18 22:00 11/29/18 22:51 Lipitor PO 40 mg QHS ALEXSANDRA Administration Dextrose 50 ml 11/28/18 03:08 D50w (25gm) Syringe IV PRN PRN Hypoglycemia Dextrose/Sodium Chloride 1,000 mls @ 100 mls/hr 11/29/18 21:00 11/29/18 22:48 D5ns IV 100 mls/hr DIRECT ALEXSANDRA Administration Insulin Glargine 10 units 11/28/18 22:00 11/29/18 22:49 Lantus SUB-Q 10 units QHS ALEXSANDRA Administration Insulin Human Lispro 0 unit 11/28/18 07:30 11/29/18 22:49 Humalog SUB-Q Not Given ACHS [facility] Protocol Morphine Sulfate 2 mg 11/28/18 02:40 Morphine IV Q3H PRN Pain, Moderate (4-6) Ondansetron HCl 4 mg 11/28/18 02:40 Zofran IV Q8H PRN Nausea And Vomiting Oxycodone/Acetaminophen 1 tab 11/28/18 02:40 11/29/18 11:41 Percocet 5/325 PO 1 tab Q4H PRN Administration Pain, Moderate (4-6) Sodium Chloride 10 ml 11/28/18 10:00 11/29/18 22:49 Sodium Chloride Flush Syringe 10 Ml IV 10 ml BID ALEXSANDRA Administration Sodium Chloride 10 ml 11/28/18 02:40 Sodium Chloride Flush Syringe 10 Ml IV PRN PRN LINE FLUSH
[2018-11-30] MEDS: HumaLOG SUB-Q SCH ×4 (07:30→22:06)
--- NOTE | 2018-11-30 07:45 | Event Note ---
Date: 11/29/18 [id number]
--- NOTE | 2018-11-30 07:51 | Hem/Onc Progress Note ---
Assessment and Plan 1. Liver lesion. As per the information available, the patient has undergone biopsy at the [facility]. More information is being obtained from there. 2. Elevated bilirubin, likely secondary to liver lesions. 3. History of loss of weight, appetite, and diarrhea. 4. Nephrology surgical team has seen the patient and Cardiology team has seen the patient. 5. History of skin infection in lower extremities. 6. Renal impairment. 7. Tachycardia. GI team Dr. Castellano saw the patient. We will get more information from the [place] system. Dr Castellano called - neuroendocrine - will review the notes jaundice - MRCP - Patient Problems (1) Liver masses Current Visit: Yes Status: Acute Subjective Date of service: 11/30/18 Objective - Constitutional Vitals: Last Vital Signs Temp 97.3 F L 11/30/18 02:32 Pulse 102 H 11/30/18 07:31 Resp 15 11/30/18 07:31 BP 92/57 11/30/18 07:31 Pulse Ox 94 11/30/18 07:31 Pain Intensity (0-10): denies any pain General appearance: cachectic Performance status: 4-completely disabled - EENT Eyes: EOM intact, scleral icterus ENT: clear oral mucosa Lymph node exam: negative cervical - Neck Neck: normal ROM - Respiratory Respiratory effort: Positive: normal Respiratory: bilateral: diminished - Cardiovascular Heart Sounds: Present: S1 & S2 Extremity abnormal: other (bandage) - Gastrointestinal General gastrointestinal: Present: soft, hepatomegaly Rectal Exam: deferred - Genitourinary Male genitourinary: Present: deferred - Integumentary Integumentary: warm - Musculoskeletal Musculoskeletal: generalized weakness - Neurologic Neurologic: moves all extremities - Labs Lab Results: Laboratory Results - last 24 hr 11/29/18 11/29/18 11/29/18 08:06 08:53 08:53 WBC 12.9 H RBC 3.70 Hgb 11.6 L Hct 34.3 L MCV 93 MCH 31 MCHC 34 RDW 24.9 H Plt Count 294 Lymph % (Auto) Liquor Runner Lymph # Liquor Runner Add Manual Diff Complete Total Counted 100 Seg Neutrophils % Liquor Runner Seg Neuts % (Manual) 90.0 H Band Neutrophils % 0 Lymphocytes % (Manual) 4.0 L Reactive Lymphs % (Man) 0 Monocytes % (Manual) 2.0 Eosinophils % (Manual) 3.0 Basophils % (Manual) 0 Metamyelocytes % 1.0 Myelocytes % 0 Promyelocytes % 0 Blast Cells % 0 Nucleated RBC % 2.0 H Seg Neutrophils # Man 11.6 H Band Neutrophils # 0.0 Lymphocytes # (Manual) 0.5 L Abs React Lymphs (Man) 0.0 Monocytes # (Manual) 0.3 Eosinophils # (Manual) 0.4 Basophils # (Manual) 0.0 Metamyelocytes # 0.1 Myelocytes # 0.0 Promyelocytes # 0.0 Blast Cells # 0.0 WBC Morphology Not Reportable Hypersegmented Neuts Not Reportable Hyposegmented Neuts Not Reportable Hypogranular Neuts Not Reportable Smudge Cells Not Reportable Toxic Granulation Not Reportable Toxic Vacuolation Not Reportable Dohle Bodies Not Reportable Pelger-Huet Anomaly Not Reportable Jessica Rods Not Reportable Platelet Estimate Consistent w auto Clumped Platelets Not Reportable Plt Clumps, EDTA Not Reportable Large Platelets Not Reportable Giant Platelets Not Reportable Platelet Satelliting Not Reportable Plt Morphology Comment Not Reportable RBC Morphology Not Reportable Dimorphic RBCs Not Reportable Polychromasia Not Reportable Hypochromasia 1+ Poikilocytosis 1+ Anisocytosis 2+ Microcytosis Few Macrocytosis Not Reportable Spherocytes Not Reportable Pappenheimer Bodies Not Reportable Sickle Cells Not Reportable Target Cells 2+ Tear Drop Cells Not Reportable Ovalocytes Not Reportable Helmet Cells Not Reportable Perez-[place] Bodies Not Reportable [place] Rings Not Reportable [place] Cells Not Reportable Bite Cells Not Reportable Crenated Cell Not Reportable Elliptocytes Not Reportable Acanthocytes (Spur) Not Reportable Rouleaux Not Reportable Hemoglobin C Crystals Not Reportable Schistocytes Not Reportable Malaria parasites Not Reportable Hugo Bodies Not Reportable Hem Pathologist Commnt No Sodium 146 H Potassium 5.1 H Chloride 112.0 H Carbon Dioxide 24 Anion Gap 15 BUN 79 H Creatinine 4.3 H Estimated GFR 16 BUN/Creatinine Ratio 18 Glucose 115 H POC Glucose 94 Calcium 9.7 Phosphorus Total Bilirubin 13.10 H AST 158 H ALT 86 H Alkaline Phosphatase 971 H Total Creatine Kinase Troponin T 0.095 H Total Protein 6.3 Albumin 2.4 L Albumin/Globulin Ratio 0.6 Prealbumin Prostate Specific Ag PTH Intact Hepatitis A IgM Ab Hep Bs Antigen Hep B Core IgM Ab Hepatitis C Antibody 11/29/18 11/29/18 11/29/18 08:53 11:43 16:10 WBC RBC Hgb Hct MCV MCH MCHC RDW Plt Count Lymph % (Auto) Lymph # Add Manual Diff Total Counted Seg Neutrophils % Seg Neuts % (Manual) Band Neutrophils % Lymphocytes % (Manual) Reactive Lymphs % (Man) Monocytes % (Manual) Eosinophils % (Manual) Basophils % (Manual) Metamyelocytes % Myelocytes % Promyelocytes % Blast Cells % Nucleated RBC % Seg Neutrophils # Man Band Neutrophils # Lymphocytes # (Manual) Abs React Lymphs (Man) Monocytes # (Manual) Eosinophils # (Manual) Basophils # (Manual) Metamyelocytes # Myelocytes # Promyelocytes # Blast Cells # WBC Morphology Hypersegmented Neuts Hyposegmented Neuts Hypogranular Neuts Smudge Cells Toxic Granulation Toxic Vacuolation Dohle Bodies Pelger-Huet Anomaly Jessica Rods Platelet Estimate Clumped Platelets Plt Clumps, EDTA Large Platelets Giant Platelets Platelet Satelliting Plt Morphology Comment RBC Morphology Dimorphic RBCs Polychromasia Hypochromasia Poikilocytosis Anisocytosis Microcytosis Macrocytosis Spherocytes Pappenheimer Bodies Sickle Cells Target Cells Tear Drop Cells Ovalocytes Helmet Cells Perez-[place] Bodies [place] Rings [place] Cells Bite Cells Crenated Cell Elliptocytes Acanthocytes (Spur) Rouleaux Hemoglobin C Crystals Schistocytes Malaria parasites Hugo Bodies Hem Pathologist Commnt Sodium Potassium Chloride Carbon Dioxide Anion Gap BUN Creatinine Estimated GFR BUN/Creatinine Ratio Glucose POC Glucose 98 102 Calcium Phosphorus Total Bilirubin AST ALT Alkaline Phosphatase Total Creatine Kinase Troponin T Total Protein Albumin Albumin/Globulin Ratio Prealbumin Prostate Specific Ag 0.89 PTH Intact Hepatitis A IgM Ab Hep Bs Antigen Hep B Core IgM Ab Hepatitis C Antibody 11/29/18 11/29/18 11/29/18 16:32 16:32 21:48 WBC RBC Hgb Hct MCV MCH MCHC RDW Plt Count Lymph % (Auto) Lymph # Add Manual Diff Total Counted Seg Neutrophils % Seg Neuts % (Manual) Band Neutrophils % Lymphocytes % (Manual) Reactive Lymphs % (Man) Monocytes % (Manual) Eosinophils % (Manual) Basophils % (Manual) Metamyelocytes % Myelocytes % Promyelocytes % Blast Cells % Nucleated RBC % Seg Neutrophils # Man Band Neutrophils # Lymphocytes # (Manual) Abs React Lymphs (Man) Monocytes # (Manual) Eosinophils # (Manual) Basophils # (Manual) Metamyelocytes # Myelocytes # Promyelocytes # Blast Cells # WBC Morphology Hypersegmented Neuts Hyposegmented Neuts Hypogranular Neuts Smudge Cells Toxic Granulation Toxic Vacuolation Dohle Bodies Pelger-Huet Anomaly Jessica Rods Platelet Estimate Clumped Platelets Plt Clumps, EDTA Large Platelets Giant Platelets Platelet Satelliting Plt Morphology Comment RBC Morphology Dimorphic RBCs Polychromasia Hypochromasia Poikilocytosis Anisocytosis Microcytosis Macrocytosis Spherocytes Pappenheimer Bodies Sickle Cells Target Cells Tear Drop Cells Ovalocytes Helmet Cells Perez-[place] Bodies [place] Rings [place] Cells Bite Cells Crenated Cell Elliptocytes Acanthocytes (Spur) Rouleaux Hemoglobin C Crystals Schistocytes Malaria parasites Hugo Bodies Hem Pathologist Commnt Sodium 142 Potassium 5.6 H Chloride 108.6 H Carbon Dioxide 19 L Anion Gap 20 BUN 79 H Creatinine 4.1 H Estimated GFR 17 BUN/Creatinine Ratio 19 Glucose 99 POC Glucose 86 Calcium 9.7 Phosphorus Total Bilirubin AST ALT Alkaline Phosphatase Total Creatine Kinase Troponin T Total Protein Albumin Albumin/Globulin Ratio Prealbumin Prostate Specific Ag PTH Intact Hepatitis A IgM Ab Non-reactive Hep Bs Antigen Nonreactive Hep B Core IgM Ab Non-reactive Hepatitis C Antibody Nonreactive 11/30/18 11/30/18 05:24 05:24 WBC RBC Hgb Hct MCV MCH MCHC RDW Plt Count Lymph % (Auto) Lymph # Add Manual Diff Total Counted Seg Neutrophils % Seg Neuts % (Manual) Band Neutrophils % Lymphocytes % (Manual) Reactive Lymphs % (Man) Monocytes % (Manual) Eosinophils % (Manual) Basophils % (Manual) Metamyelocytes % Myelocytes % Promyelocytes % Blast Cells % Nucleated RBC % Seg Neutrophils # Man Band Neutrophils # Lymphocytes # (Manual) Abs React Lymphs (Man) Monocytes # (Manual) Eosinophils # (Manual) Basophils # (Manual) Metamyelocytes # Myelocytes # Promyelocytes # Blast Cells # WBC Morphology Hypersegmented Neuts Hyposegmented Neuts Hypogranular Neuts Smudge Cells Toxic Granulation Toxic Vacuolation Dohle Bodies Pelger-Huet Anomaly Jessica Rods Platelet Estimate Clumped Platelets Plt Clumps, EDTA Large Platelets Giant Platelets Platelet Satelliting Plt Morphology Comment RBC Morphology Dimorphic RBCs Polychromasia Hypochromasia Poikilocytosis Anisocytosis Microcytosis Macrocytosis Spherocytes Pappenheimer Bodies Sickle Cells Target Cells Tear Drop Cells Ovalocytes Helmet Cells Perez-[place] Bodies [place] Rings [place] Cells Bite Cells Crenated Cell Elliptocytes Acanthocytes (Spur) Rouleaux Hemoglobin C Crystals Schistocytes Malaria parasites Hugo Bodies Hem Pathologist Commnt Sodium 145 Potassium 4.6 Chloride 111.3 H Carbon Dioxide 21 L Anion Gap 17 BUN 79 H Creatinine 4.6 H Estimated GFR 15 BUN/Creatinine Ratio 17 Glucose 55 L POC Glucose Calcium 9.9 Phosphorus 3.70 Total Bilirubin 12.30 H AST 191 H ALT 90 H Alkaline Phosphatase 934 H Total Creatine Kinase 131 Troponin T Total Protein 6.1 L Albumin 2.2 L Albumin/Globulin Ratio 0.6 Prealbumin 0.240 Prostate Specific Ag PTH Intact 50.60 Hepatitis A IgM Ab Hep Bs Antigen Hep B Core IgM Ab Hepatitis C Antibody Medications & Allergies - Medications Allergies/Adverse Reactions: Allergies No Known Allergies Allergy (Verified 11/27/18 23:55) Home Medications: Home Medications Medication Instructions Recorded Confirmed Last Taken Type Cholecalciferol (Vitamin D3) 1,000 1000units PO DAILY 11/27/18 11/28/18 11/27/18 10:00 History [Vitamin D3] Docusate Sodium [Colace] 100 mg PO BID PRN 11/27/18 11/27/18 Unknown History Furosemide [Lasix] 20 mg PO DAILY 11/27/18 11/28/18 11/27/18 10:00 History Levothyroxine [Synthroid] 25 mcg PO QAM 11/27/18 11/28/18 11/27/18 10:00 History Levothyroxine [Synthroid] 112 mcg PO QAM 11/27/18 11/28/18 11/27/18 10:00 History Losartan/Hydrochlorothiazide 1 each PO DAILY 11/27/18 11/28/18 11/27/18 10:00 History [Losartan-Hctz 100-25 mg Tab] RX: AtorvaSTATin [Lipitor] 40 mg PO DAILY 11/27/18 11/28/18 11/27/18 22:00 History RX: Hydrocortisone 10 mg PO QAM 11/27/18 11/28/18 11/27/18 10:00 History RX: Hydrocortisone 15 mg PO QPM 11/27/18 11/28/18 11/27/18 22:00 History RX: Metformin HCl 1,000 mg PO BID 11/27/18 11/28/18 11/27/18 22:00 History Ranitidine HCl [Acid Quality Assurance Consultant] 150 mg PO DAILY 11/27/18 11/27/18 Unknown History Hydrocortisone [Cortef TAB] 10 mg PO QAM&QHS 11/28/18 11/28/18 11/27/18 22:00 History Tylenol 500 mg PO PRN 11/28/18 11/30/18 Unknown History Active Medications: Generic Name Dose Route Start Last Admin Trade Name Freq PRN Reason Stop Dose Admin Acetaminophen 650 mg 11/28/18 02:40 Tylenol PO Q4H PRN Pain MILD(1-3)/Fever >100.5/ROSALES Aspirin 325 mg 11/28/18 10:00 11/29/18 11:41 Aspirin PO 325 mg QDAY ALEXSANDRA Administration Atorvastatin Calcium 40 mg 11/28/18 22:00 11/29/18 22:51 Lipitor PO 40 mg QHS ALEXSANDRA Administration Dextrose 50 ml 11/28/18 03:08 D50w (25gm) Syringe IV PRN PRN Hypoglycemia Dextrose/Sodium Chloride 1,000 mls @ 100 mls/hr 11/29/18 21:00 11/29/18 22:48 D5ns IV 100 mls/hr DIRECT ALEXSANDRA Administration Insulin Glargine 10 units 11/28/18 22:00 11/29/18 22:49 Lantus SUB-Q 10 units QHS ALEXSANDRA Administration Insulin Human Lispro 0 unit 11/28/18 07:30 11/29/18 22:49 Humalog SUB-Q Not Given ACHS [facility] Protocol Morphine Sulfate 2 mg 11/28/18 02:40 Morphine IV Q3H PRN Pain, Moderate (4-6) Ondansetron HCl 4 mg 11/28/18 02:40 Zofran IV Q8H PRN Nausea And Vomiting Oxycodone/Acetaminophen 1 tab 11/28/18 02:40 11/29/18 11:41 Percocet 5/325 PO 1 tab Q4H PRN Administration Pain, Moderate (4-6) Sodium Chloride 10 ml 11/28/18 10:00 11/29/18 22:49 Sodium Chloride Flush Syringe 10 Ml IV 10 ml BID ALEXSANDRA Administration Sodium Chloride 10 ml 11/28/18 02:40 Sodium Chloride Flush Syringe 10 Ml IV PRN PRN LINE FLUSH
--- NOTE | 2018-11-30 08:47 | Consultation ---
REASON FOR CONSULTATION: Metastatic cancer. HISTORY OF PRESENT ILLNESS: I saw the patient, a 73-year-old male in the medical floor. The patient has history of generalized weakness, body aches, easy fatigability with falls. He also had occasional diarrhea, abdominal pain, shortness of breath. As per the notes, daughter has mentioned that patient has had extensive workup at [facility] including liver biopsy. I have been asked to evaluate the patient in view of the liver lesions. At this time, the patient has generalized weakness, no headache, no nausea, no vomiting. Decreased appetite. No chest pain, no palpitation, no fever, no runny nose. PAST MEDICAL HISTORY: Diabetes and hypertension. PAST SURGICAL HISTORY: Noncontributory. SOCIAL HISTORY: History of occasional alcohol use. FAMILY HISTORY: Not contributory. ALLERGIES: None. HOME MEDICATIONS: Include vitamin D, atorvastatin, Lasix, losartan, metformin. PRESENT MEDICATIONS: Include some morphine, Tylenol, oxycodone, dextrose, insulin, aspirin, atorvastatin. PHYSICAL EXAMINATION: VITAL SIGNS: Temperature 97, pulse 104, respirations 18, BP 93/59. HEENT: No pallor, icterus present. NCEK: No neck lymph nodes. HEART: S1, S2. CHEST: Clear to auscultation anteriorly. ABDOMEN: Liver enlarged. NEUROLOGIC: Alert, awake, follows simple commands. LABORATORY DATA: White cell 12, hemoglobin 11, MCV 93, platelet 294. Potassium 5, creatinine 4.3, bilirubin 13. RADIOLOGY: Liver enlarged with heterogeneous irregular echotexture throughout both lobes, additional lobe 4 cm, malignancy suspected. ASSESSMENT AND PLAN: 1. Liver lesion. As per the information available, the patient has undergone biopsy at the [facility]. More information is being obtained from there. 2. Elevated bilirubin, likely secondary to liver lesions. 3. History of loss of weight, appetite, and diarrhea. 4. Nephrology surgical team has seen the patient and Cardiology team has seen the patient. 5. History of skin infection in lower extremities. 6. Renal impairment. 7. Tachycardia. GI team ____ the patient. We will get more information from the [place] system. JOB# [id number] NM/NTS
--- NOTE | 2018-11-30 09:35 | Progress Note ---
Assessment and Plan Assessment and plan: --Large liver mass /possible primary versus metastatic lesion Patient's daughter the MALIK, reports that patient had [facility], including liver biopsy recently, Requested medical records, GI oncology evaluation noted and appreciated, GI recommend MRI abdomen --Transaminitis/ hyperbilirubinemia; due to malignant liver lesion ,primary versus metastatic --Acute renal failure: Secondary to ATN Continue IV fluid, avoid nephrotoxins Renal ultrasound negative, nephrology evaluation --Hyperkalemia; treated per protocol Follow electrolyte levels, patient refused blood work today --Nonspecific Elevated troponin;denies chest pain or shortness of breath Nonspecific ,dueto demand ischemia , renal impairment,EF 50-55% --Hypercoagulable state/coagulopathy Likely due to the hepatic disease/mass --Dyslipidemia; hold statin in view of transaminitis --Left lower extremity edema; negative DVT --Right lower extremity wound; surgery evaluation noted and appreciated Wound care --Gen. debility/Deconditioning: PT and OT/Rehab --History of hypothyroidism; on Synthroid TSH is very low, possible overcorrection, hold Synthroid repeat TFTs --Full CODE STATUS --DVT Prophylaxis with SCD /coagulopathy Disposition: Request medical records from OR, follow oncology and GI evaluation Plan of Case reviewed with the patient and his nurse I also discussed with his daughter MALIK extensively patient's condition Treatment plan, answered all her questions, get medical records from [place] History Interval history: Patient seen and examined medical records reviewed No new events reported by the nursing staff GI workup is in progress Patient has no new complaints Vital signs noted Hospitalist Physical - Constitutional Vitals: Temp Pulse Resp BP Pulse Ox 97.3 F L 102 H 15 92/57 94 11/30/18 02:32 11/30/18 07:31 11/30/18 07:31 11/30/18 07:31 11/30/18 07:31 General appearance: Present: no acute distress, cachectic, disheveled, other (ill-looking) - EENT Eyes: Present: PERRL, EOM intact - Neck Neck: Present: supple, normal ROM - Respiratory Respiratory effort: normal Respiratory: bilateral: diminished, negative: rales, rhonchi, wheezing - Cardiovascular Rhythm: regular Heart Sounds: Present: S1 & S2 - Extremities Extremities: no ischemia, No edema - Abdominal General gastrointestinal: soft, non-tender, non-distended, normal bowel sounds - Integumentary Integumentary: Present: clear, warm - Psychiatric Psychiatric: appropriate mood/affect, cooperative - Neurologic Neurologic: moves all extremities Results - Labs CBC & Chem 7: 11/29/18 08:53 11/30/18 05:24 Labs: Laboratory Last Values WBC 12.9 K/mm3 (4.5-11.0) H 11/29/18 08:53 RBC 3.70 M/mm3 (3.65-5.03) 11/29/18 08:53 Hgb 11.6 gm/dl (11.8-15.2) L 11/29/18 08:53 Hct 34.3 % (35.5-45.6) L 11/29/18 08:53 MCV 93 fl (84-94) 11/29/18 08:53 MCH 31 pg (28-32) 11/29/18 08:53 MCHC 34 % (32-34) 11/29/18 08:53 RDW 24.9 % (13.2-15.2) H 11/29/18 08:53 Plt Count 294 K/mm3 (140-440) 11/29/18 08:53 Lymph % (Auto) Deputy City Clerk 11/29/18 08:53 Lymph # Deputy City Clerk 11/29/18 08:53 Add Manual Diff Complete 11/29/18 08:53 Total Counted 100 11/29/18 08:53 Seg Neutrophils % Deputy City Clerk 11/29/18 08:53 Seg Neuts % (Manual) 90.0 % (40.0-70.0) H 11/29/18 08:53 Band Neutrophils % 0 % 11/29/18 08:53 Lymphocytes % (Manual) 4.0 % (13.4-35.0) L 11/29/18 08:53 Reactive Lymphs % (Man) 0 % 11/29/18 08:53 Monocytes % (Manual) 2.0 % (0.0-7.3) 11/29/18 08:53 Eosinophils % (Manual) 3.0 % (0.0-4.3) 11/29/18 08:53 Basophils % (Manual) 0 % (0.0-1.8) 11/29/18 08:53 Metamyelocytes % 1.0 % 11/29/18 08:53 Myelocytes % 0 % 11/29/18 08:53 Promyelocytes % 0 % 11/29/18 08:53 Blast Cells % 0 % 11/29/18 08:53 Nucleated RBC % 2.0 % (0.0-0.9) H 11/29/18 08:53 Seg Neutrophils # Man 11.6 K/mm3 (1.8-7.7) H 11/29/18 08:53 Band Neutrophils # 0.0 K/mm3 11/29/18 08:53 Lymphocytes # (Manual) 0.5 K/mm3 (1.2-5.4) L 11/29/18 08:53 Abs React Lymphs (Man) 0.0 K/mm3 11/29/18 08:53 Monocytes # (Manual) 0.3 K/mm3 (0.0-0.8) 11/29/18 08:53 Eosinophils # (Manual) 0.4 K/mm3 (0.0-0.4) 11/29/18 08:53 Basophils # (Manual) 0.0 K/mm3 (0.0-0.1) 11/29/18 08:53 Metamyelocytes # 0.1 K/mm3 11/29/18 08:53 Myelocytes # 0.0 K/mm3 11/29/18 08:53 Promyelocytes # 0.0 K/mm3 11/29/18 08:53 Blast Cells # 0.0 K/mm3 11/29/18 08:53 WBC Morphology Not Reportable 11/29/18 08:53 Hypersegmented Neuts Not Reportable 11/29/18 08:53 Hyposegmented Neuts Not Reportable 11/29/18 08:53 Hypogranular Neuts Not Reportable 11/29/18 08:53 Smudge Cells Not Reportable 11/29/18 08:53 Toxic Granulation Not Reportable 11/29/18 08:53 Toxic Vacuolation Not Reportable 11/29/18 08:53 Dohle Bodies Not Reportable 11/29/18 08:53 Pelger-Huet Anomaly Not Reportable 11/29/18 08:53 Jessica Rods Not Reportable 11/29/18 08:53 Platelet Estimate Consistent w auto 11/29/18 08:53 Clumped Platelets Not Reportable 11/29/18 08:53 Plt Clumps, EDTA Not Reportable 11/29/18 08:53 Large Platelets Not Reportable 11/29/18 08:53 Giant Platelets Not Reportable 11/29/18 08:53 Platelet Satelliting Not Reportable 11/29/18 08:53 Plt Morphology Comment Not Reportable 11/29/18 08:53 RBC Morphology Not Reportable 11/29/18 08:53 Dimorphic RBCs Not Reportable 11/29/18 08:53 Polychromasia Not Reportable 11/29/18 08:53 Hypochromasia 1+ 11/29/18 08:53 Poikilocytosis 1+ 11/29/18 08:53 Anisocytosis 2+ 11/29/18 08:53 Microcytosis Few 11/29/18 08:53 Macrocytosis Not Reportable 11/29/18 08:53 Spherocytes Not Reportable 11/29/18 08:53 Pappenheimer Bodies Not Reportable 11/29/18 08:53 Sickle Cells Not Reportable 11/29/18 08:53 Target Cells 2+ 11/29/18 08:53 Tear Drop Cells Not Reportable 11/29/18 08:53 Ovalocytes Not Reportable 11/29/18 08:53 Helmet Cells Not Reportable 11/29/18 08:53 [place] Bodies Not Reportable 11/29/18 08:53 [place] Rings Not Reportable 11/29/18 08:53 [place] Cells Not Reportable 11/29/18 08:53 Bite Cells Not Reportable 11/29/18 08:53 Crenated Cell Not Reportable 11/29/18 08:53 Elliptocytes Not Reportable 11/29/18 08:53 Acanthocytes (Spur) Not Reportable 11/29/18 08:53 Rouleaux Not Reportable 11/29/18 08:53 Hemoglobin C Crystals Not Reportable 11/29/18 08:53 Schistocytes Not Reportable 11/29/18 08:53 Malaria parasites Not Reportable 11/29/18 08:53 Hugo Bodies Not Reportable 11/29/18 08:53 Hem Pathologist Commnt No 11/29/18 08:53 PT 21.6 Sec. (12.2-14.9) H 11/27/18 21:47 INR 1.75 (0.87-1.13) H 11/27/18 21:47 APTT 34.7 Sec. (24.2-36.6) 11/27/18 21:47 Sodium 145 mmol/L (137-145) 11/30/18 05:24 Potassium 4.6 mmol/L (3.6-5.0) 11/30/18 05:24 Chloride 111.3 mmol/L (98-107) H 11/30/18 05:24 Carbon Dioxide 21 mmol/L (22-30) L 11/30/18 05:24 Anion Gap 17 mmol/L 11/30/18 05:24 BUN 79 mg/dL (9-20) H 11/30/18 05:24 Creatinine 4.6 mg/dL (0.8-1.5) H 11/30/18 05:24 Estimated GFR 15 ml/min 11/30/18 05:24 BUN/Creatinine Ratio 17 % 11/30/18 05:24 Glucose 55 mg/dL (75-100) L 11/30/18 05:24 POC Glucose 42 (70-105) L 11/30/18 07:31 Lactic Acid 1.90 mmol/L (0.7-2.0) 11/27/18 21:47 Calcium 9.9 mg/dL (8.4-10.2) 11/30/18 05:24 Phosphorus 3.70 mg/dL (2.5-4.5) 11/30/18 05:24 Magnesium 3.10 mg/dL (1.7-2.3) H 11/28/18 15:56 Total Bilirubin 12.30 mg/dL (0.1-1.2) H 11/30/18 05:24 AST 191 units/L (5-40) H 11/30/18 05:24 ALT 90 units/L (7-56) H 11/30/18 05:24 Alkaline Phosphatase 934 units/L (35-129) H 11/30/18 05:24 Ammonia 21.0 umol/L (25-60) L 11/27/18 21:47 Total Creatine Kinase 131 units/L (55-170) 11/30/18 05:24 Troponin T 0.095 ng/mL (0.00-0.029) H 11/29/18 08:53 Total Protein 6.1 g/dL (6.3-8.2) L 11/30/18 05:24 Albumin 2.2 g/dL (3.9-5) L 11/30/18 05:24 Albumin/Globulin Ratio 0.6 % 11/30/18 05:24 Prealbumin 0.240 g/L (0.200-0.400) 11/30/18 05:24 Triglycerides 106 mg/dL (2-149) 11/27/18 21:47 Cholesterol 306 mg/dL (50-199) H 11/27/18 21:47 LDL Cholesterol Direct 22 mg/dL (50-130) L 11/27/18 21:47 HDL Cholesterol 21 mg/dL (40-59) L 11/27/18 21:47 Cholesterol/HDL Ratio 14.57 % 11/27/18 21:47 Prostate Specific Ag 0.89 ng/mL (0.00-4.00) 11/29/18 08:53 TSH 0.010 mlU/mL (0.270-4.200) L 11/27/18 21:47 Free T4 0.92 ng/dL (0.76-1.46) 11/27/18 22:49 PTH Intact 50.60 pg/mL (15-65) 11/30/18 05:24 Urine Color [place] (Yellow) 11/28/18 03:31 Urine Turbidity Slightly-cloudy (Clear) 11/28/18 03:31 Urine pH 6.0 (5.0-7.0) 11/28/18 03:31 Ur Specific [place] 1.019 (1.003-1.030) 11/28/18 03:31 Urine Protein 100 mg/dl mg/dL (Negative) 11/28/18 03:31 Urine Glucose (UA) Neg mg/dL (Negative) 11/28/18 03:31 Urine Ketones Neg mg/dL (Negative) 11/28/18 03:31 Urine Blood Sm (Negative) 11/28/18 03:31 Urine Nitrite Neg (Negative) 11/28/18 03:31 Urine Bilirubin Mod (Negative) 11/28/18 03:31 Urine Ictotest Positive (Negative) 11/28/18 03:31 Urine Urobilinogen 4.0 mg/dL (<2.0) 11/28/18 03:31 Ur Leukocyte Esterase Mod (Negative) 11/28/18 03:31 Urine WBC (Auto) 114.0 /HPF (0.0-6.0) H 11/28/18 03:31 Urine RBC (Auto) 7.0 /HPF (0.0-6.0) 11/28/18 03:31 U Epithel Cells (Auto) 1.0 /HPF (0-13.0) 11/28/18 03:31 Urine Bacteria (Auto) 4+ /HPF (Negative) 11/28/18 03:31 Amorphous Crystals Few 11/28/18 03:31 Urine Mucus Few /HPF 11/28/18 03:31 Hepatitis A IgM Ab Non-reactive (NonReactive) 11/29/18 16:32 Hep Bs Antigen Nonreactive (Negative) 11/29/18 16:32 Hep B Core IgM Ab Non-reactive (NonReactive) 11/29/18 16:32 Hepatitis C Antibody Nonreactive (NonReactive) 11/29/18 16:32 Active Medications - Current Medications Current Medications: Generic Name Dose Route Start Last Admin Trade Name Freq PRN Reason Stop Dose Admin Acetaminophen 650 mg 11/28/18 02:40 Tylenol PO Q4H PRN Pain MILD(1-3)/Fever >100.5/ROSALES Aspirin 325 mg 11/28/18 10:00 11/29/18 11:41 Aspirin PO 325 mg QDAY ALEXSANDRA Administration Atorvastatin Calcium 40 mg 11/28/18 22:00 11/29/18 22:51 Lipitor PO 40 mg QHS ALEXSANDRA Administration Dextrose 50 ml 11/28/18 03:08 D50w (25gm) Syringe IV PRN PRN Hypoglycemia Dextrose/Sodium Chloride 1,000 mls @ 100 mls/hr 11/29/18 21:00 11/29/18 22:48 D5ns IV 100 mls/hr DIRECT ALEXSANDRA Administration Insulin Glargine 10 units 11/28/18 22:00 11/29/18 22:49 Lantus SUB-Q 10 units QHS ALEXSANDRA Administration Insulin Human Lispro 0 unit 11/28/18 07:30 11/30/18 07:30 Humalog SUB-Q Not Given ACHS [facility] Protocol Morphine Sulfate 2 mg 11/28/18 02:40 Morphine IV Q3H PRN Pain, Moderate (4-6) Ondansetron HCl 4 mg 11/28/18 02:40 Zofran IV Q8H PRN Nausea And Vomiting Oxycodone/Acetaminophen 1 tab 11/28/18 02:40 11/29/18 11:41 Percocet 5/325 PO 1 tab Q4H PRN Administration Pain, Moderate (4-6) Sodium Chloride 10 ml 11/28/18 10:00 11/29/18 22:49 Sodium Chloride Flush Syringe 10 Ml IV 10 ml BID ALEXSANDRA Administration Sodium Chloride 10 ml 11/28/18 02:40 Sodium Chloride Flush Syringe 10 Ml IV PRN PRN LINE FLUSH Nutrition/Malnutrition Assess - Dietary Evaluation Nutrition/Malnutrition Findings: Nutrition Notes Start: 11/29/18 16:56 Freq: Status: Active Protocol: Document 11/29/18 16:56 OL (Rec: 11/29/18 17:02 OL [id number]) Nutrition Notes Need for Assessment generated from: field account director,MST Initial or Follow up Assessment Current Diagnosis Acute Kidney Injury Other Pertinent Diagnosis liver mass Current Diet regular Labs/Tests Na 146 K 5.1 BUN 79 Cr 4.3 Bili 13.9 AST 158 ALT 86 Pertinent Medications Reviewed Height 5 ft 6 in Weight 63.503 kg [place] Body Weight (kg) 64.54 BMI 22.6 Subjective/Other Information RD screen for malnutrition risk. Pt. with elevated liver enzymes, bilirubin. Pt. has liver mass concern for metastatic disease vs malignancy. Pt. notes taste changes; he can only taste sweet foods at this time. Lunch tray untouched. Pt. with lactose intolerance and reports caffeine upsets his stomach. Pt. denies N/V/C/D. Burn Absent Trauma Absent #1 Nutrition Diagnosis Inadequate oral intake Etiology liver mass As Evidenced by Signs and Symptoms taste changes, skipped meals during admission and prior to admission. Is patient on ventilator? No Is Patient Ambulatory and/or Out of Bed Yes REE-([facility]-ambulatory/OOB) [ 1713.114 [id number]] Calculation Used for Recommendations [facility] Additional Notes protein (1.2-1.5g/kg): 76-95g fluid: 1mL/kcal or per MD Nutrition Intervention Change Diet Order: Continue as ordered Add Supplement/Snack (indicate name/kcal Ensure Enlive BID /protein ) Provides kCal: 700 Provides Protein (gm) 40 Goal #1 Diet to meet 75-100% of energy and protein needs Follow-Up By: 12/01/18 Additional Comments f/u: intakes
[2018-11-30] MEDS: SODIUM CHLORIDE FLUSH SYRINGE 10 ML IV SCH ×2 (09:45→22:06)
[2018-11-30] MEDS: ASPIRIN PO SCH (09:45)
--- NOTE | 2018-11-30 13:24 | Event Note ---
Date: 11/30/18 Echocardiogram shows preserved left ventricular systolic function, ejection fraction 50-55%. No further cardiac workup, will sign off.
[2018-11-30] MEDS ORDERED: XYLOCAINE TOPICAL 4% TP NR (14:45)
--- NOTE | 2018-11-30 16:03 | Procedure Note ---
Date of procedure: 11/30/18 Pre-op diagnosis: necrotic right lower extremity wound Post-op diagnosis: same Procedure: excisional debridement of necrotic right lower extremity wound Findings: Time out performed. 4% lidocaine topical placed on wound for 5-10 minutes. The necrotic skin, subcutaneous tissue was sharply debrided using foreceps, 15 blade, and scissors. There was minimal bleeding which was controlled with pressure. The wound was cleansed with wound cleanser and adaptic applied to the wound base. This was covered with 4x4 gauze, ABD pad and wrapped with kerlix. This was secured with tape. Preop measurement: 8X15X0.3 Post op measurement: 8X15X0.4cm The patient tolerated the procedure well. All sharps were disposed of appropriately. I spoke with his daughter of the phone after the procedure. Anesthesia: local Surgeon: JOCELYN STOVALL Estimated blood loss: minimal Pathology: none Condition: stable Disposition: PACU
--- NOTE | 2018-11-30 16:42 | Gastroenterology Progress Note ---
Assessment and Plan This is a 73 yo male, with pmh of DM, thyroid disorder, and h/o pituitary tumor s/p surgery admitted for weakness and found to have worsening kidney function, and elevated liver enzymes. Reviewed [facility] records from last admission in 10/2018. Labs 11/17/2018 INR 1.49. H/H 11.5/33.9 Plt 283 AST/OLINDA/ALk phos/Tbili = 255/145/966/8.5 09/11/2018 AST/ALT/alk phos/T bili = 90/66/248/0.7 Liver bx path - liver mass biopsy - well differentiated neuroendocrine tumor (G3) Immunohistochemical stains positive for synaptophysin, chromogranin, Ki-67 (>20%), negative for TTF1, PSA, and PSAP Although may represent a primary liver tumor, the possibility of metastatsis cannot be excluded. # Jaundice # Liver mass - US with hepatomegaly with heterogenous echotexture of the entire liver suspicious for metastatic disease, poorly marginated mass in the right hepatic lobe at least 4 cm. - s/p liver bx at the [facility] with results showing neuroendocrine tumor. Informed Dr. Pastor. - Jaundice due to liver mass likely intrahepatic. Rec: - MRCP has been ordered and pending given bilirubin elevated. No contrast given FIORDALIZA. - acute hepatitis panel, liver serologies, and AFP pending. - will follow. - follow oncology recommendations. From [facility] records. US guided liver bx on 11/17/2018. CT chest/abdomen/pelvis on 11/15/2018 - limited exam due to no IV contrast due to elevated Cr. - enlarged, heterogenous liver with findings worrisome for extensive metastatic disease. - sclerotic lesion in the T11, worrisome for osseous metastatic disease. - tiny pulmonary nodules. - subcutaneous edema, mild ascites, and trace left pleural effusion. - gastric wall thickening may be due to underdistension. Portal vein US 11/12/2018 - paten hepatic vasculature. MRI brain on 07/15/2018 - postsurgical changes within the sella - grossly unchanged nodular thickening of the pituitary stalk. - moderate nonspecific ischemic changes within periventricular white matter and subcortical white matter - mild diffuse cortical atrophy - mild dilatation of the lateral, third and fourth ventricles - mucosal thickening within paranasal sinuses Labs 11/17/2018 INR 1.49. H/H 11.5/33.9 Plt 283 AST/OLINDA/ALk phos/Tbili = 255/145/966/8.5 09/11/2018 AST/ALT/alk phos/T bili = 90/66/248/0.7 Liver bx path - liver mass biopsy - well differentiated neuroendocrine tumor (G3) Immunohistochemical stains positive for synaptophysin, chromogranin, Ki-67 (>20%), negative for TTF1, PSA, and PSAP Although may represent a primary liver tumor, the possibility of metastatsis cannot be excluded. Subjective Date of service: 11/30/18 Interval history: No acute events. Patient denies abdominal pain, nausea/vomiting. Reports having a fall last month. Objective - Constitutional Vitals: Temp Pulse Resp BP Pulse Ox 97.3 F L 102 H 14 85/52 97 11/30/18 02:32 11/30/18 10:00 11/30/18 13:52 11/30/18 13:52 11/30/18 10:00 - EENT Eyes: scleral icterus ENT: hearing intact, poor dentition, ulcerations - Neck Neck: supple, normal ROM - Respiratory Respiratory effort: normal Respiratory: bilateral: CTA, diminished - Cardiovascular Rhythm: regular - Gastrointestinal General gastrointestinal: Present: soft, non-tender, non-distended, normal bowel sounds - Integumentary Integumentary: Present: warm, dry - Neurologic Neurological: alert and oriented x3 - Labs CBC & Chem 7: 11/29/18 08:53 11/30/18 05:24 Labs: Laboratory Results - last 24 hr 11/29/18 11/29/18 11/29/18 16:32 16:32 21:48 Sodium 142 Potassium 5.6 H Chloride 108.6 H Carbon Dioxide 19 L Anion Gap 20 BUN 79 H Creatinine 4.1 H Estimated GFR 17 BUN/Creatinine Ratio 19 Glucose 99 POC Glucose 86 Calcium 9.7 Phosphorus Total Bilirubin AST ALT Alkaline Phosphatase Total Creatine Kinase Total Protein Albumin Albumin/Globulin Ratio Prealbumin PTH Intact Hepatitis A IgM Ab Non-reactive Hep Bs Antigen Nonreactive Hep B Core IgM Ab Non-reactive Hepatitis C Antibody Nonreactive 11/30/18 11/30/18 11/30/18 05:24 05:24 07:31 Sodium 145 Potassium 4.6 Chloride 111.3 H Carbon Dioxide 21 L Anion Gap 17 BUN 79 H Creatinine 4.6 H Estimated GFR 15 BUN/Creatinine Ratio 17 Glucose 55 L POC Glucose 42 L Calcium 9.9 Phosphorus 3.70 Total Bilirubin 12.30 H AST 191 H ALT 90 H Alkaline Phosphatase 934 H Total Creatine Kinase 131 Total Protein 6.1 L Albumin 2.2 L Albumin/Globulin Ratio 0.6 Prealbumin 0.240 PTH Intact 50.60 Hepatitis A IgM Ab Hep Bs Antigen Hep B Core IgM Ab Hepatitis C Antibody - Imaging Other: other ([facility])
[2018-11-30] MEDS: D5NS 1,000 ML IV SCH (17:28)
--- NOTE | 2018-11-30 20:22 | Magnetic Resonance Report ---
PROCEDURE: MR ABDOMEN MRCP HISTORY: jaundice FINDINGS: MRI of the abdomen was performed using axial T2*gradient echo, axial T1-weighted gradient e cho images in and out of phase, coronal T2*gradient echo, coronal T1, coronal heavily T2-weighted MRC P images. Images are limited by lack of breath-holding. There are bilateral pleural effusions, left greater than right. There is subcutaneous body wall edema . In the abdomen, there are numerable nodules within the liver. It is unclear these originated about is unresponsive cirrhosis or widespread hepatic metastatic disease. There is a small amount of ascites. The spleen is normal in size. No adrenal lesion is seen. The gallbladder appears collapsed. No evidence of cholecystitis is seen. There is no intrahepatic or extrahepatic biliary dilation. No focal pancreatic lesion is seen. No suspect focal renal lesion is identified. There are lesions within what are thought to be T6 and T11. The are not characterized but are suspici ous for metastases. IMPRESSION: Bilateral pleural effusions Innumerable nodules within the liver. It is unclear if these were generated nodules of cirrhosis or h epatic metastatic disease Small amount of ascites Bone lesions within what are thought to be T6 and T11, suspicious for metastatic disease This document is electronically signed by Reilly Harris MD., November 30 2018 08:20:19 PM ET
[2018-11-30] MEDS: LANTUS SUB-Q SCH (22:00)
[2018-12-01] MEDS: D5NS 1,000 ML IV SCH (04:39)
[2018-12-01 06:43] LABS: BUN/Creatinine Ratio TNR; Blood Urea Nitrogen TNR mg/dL (9-20); Calcium TNR mg/dL (8.4-10.2)
[2018-12-01 06:44] LABS: Alanine Aminotransferase TNR units/L (7-56); Albumin TNR g/dL (3.9-5)
[2018-12-01 06:45] LABS: Hemolysis Index TNR
--- NOTE | 2018-12-01 06:57 | Progress Note ---
Assessment and Plan 1. Acute kidney injury: Likely hemodynamic / Vasomotor FIORDALIZA in the setting of hypotension. Baseline renal function is unknown, suspect some degree of CKD. Hepato-renal syndrome is not ruled out. Renal US was negative. Continue IV fluids. Renal prognosis is guarded to poor. Monitor renal function. Avoid nephrotoxic agents. Meds dosage based on GFR. Renal replacement therapy would not change the overall outcome. Martha won't tolerate hemodialysis at this time due to hypotension. 2. FEN: Metabolic acidosis, monitor. Hyperkalemia, secondary to FIORDALIZA, improved. Hypernatremia, improved. Continue IV fluids. 3. 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 4. Abnormal liver function tests: Elevated Transaminases, T.Bilirubin and Alk phos. 5. Elevated troponin. 6. Right lower extremity wound: S/p debridement. Wound care. 7. Gen. debility / Deconditioning. Subjective Date of service: 12/01/18 Interval history: Patient was seen and examined at the bedside. Objective - Vital Signs Vital signs: Vital Signs - 12hr 11/30/18 11/30/18 12/01/18 19:53 22:00 02:51 Temperature 97.6 F 98.6 F Pulse Rate 90 90 70 Respiratory 20 20 Rate Blood Pressure 85/47 91/54 O2 Sat by Pulse 94 93 Oximetry - General Appearance General appearance: well-developed, appears stated age, other (not in distress, emaciated) EENT: ATNC, PERRL Neck: supple Respiratory: Present: Clear to Ascultation Cardiology: regular, S1S2, no murmurs Gastrointestinal: normoactive bowel sounds, no tenderness, distended, hepatomegaly Integumentary: ulcer (right leg) Neurologic: no focal deficit, no asterixis Musculoskeletal: other (R LE edema noted) - Lab 11/29/18 08:53 12/01/18 09:29 Most recent lab results Calcium TNR 12/01/18 05:49 Phosphorus 3.70 mg/dL (2.5-4.5) 11/30/18 05:24 Magnesium 3.10 mg/dL (1.7-2.3) H 11/28/18 15:56 Medications & Allergies - Medications Allergies/Adverse Reactions: Allergies No Known Allergies Allergy (Verified 11/27/18 23:55) Home Medications: Home Medications Medication Instructions Recorded Confirmed Last Taken Type AtorvaSTATin [Lipitor] 40 mg PO DAILY 11/27/18 11/28/18 11/27/18 22:00 History Cholecalciferol (Vitamin D3) 1,000 1000units PO DAILY 11/27/18 11/28/18 11/27/18 10:00 History [Vitamin D3] Docusate Sodium [Colace] 100 mg PO BID PRN 11/27/18 11/27/18 Unknown History Furosemide [Lasix] 20 mg PO DAILY 11/27/18 11/28/18 11/27/18 10:00 History Hydrocortisone 10 mg PO QAM 11/27/18 11/28/18 11/27/18 10:00 History Hydrocortisone 15 mg PO QPM 11/27/18 11/28/18 11/27/18 22:00 History Levothyroxine [Synthroid] 25 mcg PO QAM 11/27/18 11/28/18 11/27/18 10:00 History Levothyroxine [Synthroid] 112 mcg PO QAM 11/27/18 11/28/18 11/27/18 10:00 History Losartan/Hydrochlorothiazide 1 each PO DAILY 11/27/18 11/28/18 11/27/18 10:00 History [Losartan-Hctz 100-25 mg Tab] Metformin HCl 1,000 mg PO BID 11/27/18 11/28/18 11/27/18 22:00 History Ranitidine HCl [Acid Moisture Meter Operator] 150 mg PO DAILY 11/27/18 11/27/18 Unknown History Hydrocortisone [Cortef TAB] 10 mg PO QAM&QHS 11/28/18 11/28/18 11/27/18 22:00 History Tylenol 500 mg PO PRN 11/28/18 11/30/18 Unknown History Active Medications: Generic Name Dose Route Start Last Admin Trade Name Freq PRN Reason Stop Dose Admin Acetaminophen 650 mg 11/28/18 02:40 Tylenol PO Q4H PRN Pain MILD(1-3)/Fever >100.5/ROSALES Aspirin 325 mg 11/28/18 10:00 11/30/18 09:45 Aspirin PO 325 mg QDAY ALEXSANDRA Administration Atorvastatin Calcium 40 mg 11/28/18 22:00 11/30/18 22:06 Lipitor PO 40 mg QHS ALEXSANDRA Administration Dextrose 50 ml 11/28/18 03:08 11/30/18 22:03 D50w (25gm) Syringe IV 50 ml PRN PRN Administration Hypoglycemia Dextrose/Sodium Chloride 1,000 mls @ 100 mls/hr 11/29/18 21:00 12/01/18 04:39 D5ns IV 100 mls/hr DIRECT ALEXSANDRA Administration Insulin Glargine 10 units 11/28/18 22:00 11/30/18 22:00 Lantus SUB-Q Not Given QHS [facility] Insulin Human Lispro 0 unit 11/28/18 07:30 11/30/18 22:06 Humalog SUB-Q Not Given ACHS [facility] Protocol Morphine Sulfate 2 mg 11/28/18 02:40 11/30/18 15:05 Morphine IV 2 mg Q3H PRN Administration Pain, Moderate (4-6) Ondansetron HCl 4 mg 11/28/18 02:40 Zofran IV Q8H PRN Nausea And Vomiting Oxycodone/Acetaminophen 1 tab 11/28/18 02:40 11/29/18 11:41 Percocet 5/325 PO 1 tab Q4H PRN Administration Pain, Moderate (4-6) Sodium Chloride 10 ml 11/28/18 10:00 11/30/18 22:06 Sodium Chloride Flush Syringe 10 Ml IV 10 ml BID ALEXSANDRA Administration Sodium Chloride 10 ml 11/28/18 02:40 Sodium Chloride Flush Syringe 10 Ml IV PRN PRN LINE FLUSH
--- NOTE | 2018-12-01 07:36 | Hem/Onc Progress Note ---
Assessment and Plan 1. Liver lesion. As per the information available, the patient has undergone biopsy at the [facility]. More information is being obtained from there. 2. Elevated bilirubin, likely secondary to liver lesions. 3. History of loss of weight, appetite, and diarrhea. 4. Nephrology surgical team has seen the patient and Cardiology team has seen the patient. 5. History of skin infection in lower extremities. 6. Renal impairment. 7. Tachycardia. GI team Dr. Castellano saw the patient. We will get more information from the [facility] system. Dr Castellano called - neuroendocrine - will review the notes jaundice - MRCP MRCP - no obstruction of liver performance and bilirubin - will make it challenging will d/w family ? hospice option? sandostatin trial vs ref back to [facility]? - Patient Problems (1) Liver masses Current Visit: Yes Status: Acute Subjective Date of service: 12/01/18 Principal diagnosis: liver mets - mention of neuroendocrine ca Interval history: reviewed notes from [facility] Objective - Constitutional Vitals: Last Vital Signs Temp 98.6 F 12/01/18 02:51 Pulse 70 12/01/18 02:51 Resp 20 12/01/18 02:51 BP 91/54 12/01/18 02:51 Pulse Ox 93 12/01/18 02:51 Pain Intensity (0-10): denies any pain General appearance: no acute distress Performance status: 4-completely disabled - EENT Eyes: EOM intact ENT: clear oral mucosa Lymph node exam: negative cervical - Neck Neck: normal ROM - Respiratory Respiratory effort: Positive: normal Respiratory: bilateral: CTA - Cardiovascular Heart Sounds: Present: S1 & S2 Extremity abnormal: edema - Gastrointestinal General gastrointestinal: Present: soft, hepatomegaly Rectal Exam: deferred - Genitourinary Male genitourinary: Present: deferred - Integumentary Integumentary: warm - Musculoskeletal Musculoskeletal: strength equal bilaterally - Neurologic Neurologic: moves all extremities - Labs Lab Results: Laboratory Results - last 24 hr 11/29/18 11/30/18 11/30/18 08:53 07:31 11:41 Sodium Potassium Chloride Carbon Dioxide Anion Gap BUN Creatinine Estimated GFR BUN/Creatinine Ratio Glucose POC Glucose 42 L 128 H Calcium Total Bilirubin AST ALT Alkaline Phosphatase Total Protein Albumin Albumin/Globulin Ratio CA 19-9 Antigen <3 11/30/18 11/30/18 11/30/18 17:58 22:00 22:56 Sodium Potassium Chloride Carbon Dioxide Anion Gap BUN Creatinine Estimated GFR BUN/Creatinine Ratio Glucose 100 POC Glucose 42 L < 40 L Calcium Total Bilirubin AST ALT Alkaline Phosphatase Total Protein Albumin Albumin/Globulin Ratio CA 19-9 Antigen 11/30/18 12/01/18 23:40 05:49 Sodium TNR Potassium TNR Chloride TNR Carbon Dioxide TNR Anion Gap TNR BUN TNR Creatinine TNR Estimated GFR TNR BUN/Creatinine Ratio TNR Glucose TNR POC Glucose 86 Calcium TNR Total Bilirubin TNR AST TNR ALT TNR Alkaline Phosphatase TNR Total Protein TNR Albumin TNR Albumin/Globulin Ratio TNR CA 19-9 Antigen Medications & Allergies - Medications Allergies/Adverse Reactions: Allergies No Known Allergies Allergy (Verified 11/27/18 23:55) Home Medications: Home Medications Medication Instructions Recorded Confirmed Last Taken Type AtorvaSTATin [Lipitor] 40 mg PO DAILY 11/27/18 11/28/18 11/27/18 22:00 History Cholecalciferol (Vitamin D3) 1,000 1000units PO DAILY 11/27/18 11/28/18 11/27/18 10:00 History [Vitamin D3] Docusate Sodium [Colace] 100 mg PO BID PRN 11/27/18 11/27/18 Unknown History Furosemide [Lasix] 20 mg PO DAILY 11/27/18 11/28/18 11/27/18 10:00 History Hydrocortisone 10 mg PO QAM 11/27/18 11/28/18 11/27/18 10:00 History Hydrocortisone 15 mg PO QPM 11/27/18 11/28/18 11/27/18 22:00 History Levothyroxine [Synthroid] 25 mcg PO QAM 11/27/18 11/28/18 11/27/18 10:00 History Levothyroxine [Synthroid] 112 mcg PO QAM 11/27/18 11/28/18 11/27/18 10:00 History Losartan/Hydrochlorothiazide 1 each PO DAILY 11/27/18 11/28/18 11/27/18 10:00 History [Losartan-Hctz 100-25 mg Tab] Metformin HCl 1,000 mg PO BID 11/27/18 11/28/18 11/27/18 22:00 History Ranitidine HCl [Acid Liner Roll Changer] 150 mg PO DAILY 11/27/18 11/27/18 Unknown History Hydrocortisone [Cortef TAB] 10 mg PO QAM&QHS 11/28/18 11/28/18 11/27/18 22:00 History Tylenol 500 mg PO PRN 11/28/18 11/30/18 Unknown History Active Medications: Generic Name Dose Route Start Last Admin Trade Name Freq PRN Reason Stop Dose Admin Acetaminophen 650 mg 11/28/18 02:40 Tylenol PO Q4H PRN Pain MILD(1-3)/Fever >100.5/ROSALES Aspirin 325 mg 11/28/18 10:00 11/30/18 09:45 Aspirin PO 325 mg QDAY ALEXSANDRA Administration Atorvastatin Calcium 40 mg 11/28/18 22:00 11/30/18 22:06 Lipitor PO 40 mg QHS ALEXSANDRA Administration Dextrose 50 ml 11/28/18 03:08 11/30/18 22:03 D50w (25gm) Syringe IV 50 ml PRN PRN Administration Hypoglycemia Dextrose/Sodium Chloride 1,000 mls @ 100 mls/hr 11/29/18 21:00 12/01/18 04:39 D5ns IV 100 mls/hr DIRECT ALEXSANDRA Administration Insulin Glargine 10 units 11/28/18 22:00 11/30/18 22:00 Lantus SUB-Q Not Given QHS [facility] Insulin Human Lispro 0 unit 11/28/18 07:30 11/30/18 22:06 [facility] Protocol Midodrine 10 mg 12/01/18 08:00 Proamatine PO TID [facility] Morphine Sulfate 2 mg 11/28/18 02:40 11/30/18 15:05 Morphine IV 2 mg Q3H PRN Administration Pain, Moderate (4-6) Ondansetron HCl 4 mg 11/28/18 02:40 Zofran IV Q8H PRN Nausea And Vomiting Oxycodone/Acetaminophen 1 tab 11/28/18 02:40 11/29/18 11:41 Percocet 5/325 PO 1 tab Q4H PRN Administration Pain, Moderate (4-6) Sodium Chloride 10 ml 11/28/18 10:00 11/30/18 22:06 Sodium Chloride Flush Syringe 10 Ml IV 10 ml BID ALEXSANDRA Administration Sodium Chloride 10 ml 11/28/18 02:40 Sodium Chloride Flush Syringe 10 Ml IV PRN PRN LINE FLUSH
[2018-12-01] MEDS ORDERED: D5NS 1,000 ML IV SCH (09:00)
--- NOTE | 2018-12-01 09:16 | Progress Note ---
Assessment and Plan Assessment and plan: --Large liver mass :s/p biopsy at [facility]; neuroendocrine tumor [facility] Records reviewed GI and hematology oncology following --Transaminitis/ hyperbilirubinemia; due to malignant liver lesion , neuroendocrine tumor --Acute renal failure: Secondary to ATN Continue IV fluid, avoid nephrotoxins Renal ultrasound negative, nephrology evaluation --Hyperkalemia; treated per protocol Follow electrolyte levels, patient refused blood work today --Nonspecific Elevated troponin;denies chest pain or shortness of breath Nonspecific ,dueto demand ischemia , renal impairment,EF 50-55% --Hypercoagulable state/coagulopathy Likely due to the hepatic disease/mass --Dyslipidemia; hold statin in view of transaminitis --Left lower extremity edema; negative DVT --Right lower extremity wound; surgery evaluation noted and appreciated Wound care --Gen. debility/Deconditioning: PT and OT/Rehab --History of hypothyroidism; on Synthroid TSH is very low, possible overcorrection, hold Synthroid repeat TFTs --Full CODE STATUS --DVT Prophylaxis with SCD /coagulopathy Disposition: Request medical records from [facility], follow oncology and GI evaluation Plan of Case reviewed with the patient and his nurse History Interval history: Patient seen and examined medical records reviewed No new events reported by the nursing Patient complains of generalized weakness Refusing to eat Vital signs noted Hospitalist Physical - Constitutional Vitals: Temp Pulse Resp BP Pulse Ox 98.6 F 70 20 91/54 93 12/01/18 02:51 12/01/18 02:51 12/01/18 02:51 12/01/18 02:51 12/01/18 02:51 General appearance: Present: no acute distress, cachectic, disheveled, other (il l-looking) - EENT Eyes: Present: PERRL, EOM intact - Neck Neck: Present: supple, normal ROM - Respiratory Respiratory effort: normal Respiratory: bilateral: diminished, rhonchi, negative: rales, wheezing - Cardiovascular Rhythm: regular Heart Sounds: Present: S1 & S2 - Extremities Extremities: no ischemia, No edema - Abdominal General gastrointestinal: soft, non-tender, non-distended, normal bowel sounds, hepatomegaly - Integumentary Integumentary: Present: clear, warm - Psychiatric Psychiatric: cooperative, other (confused at times) - Neurologic Neurologic: moves all extremities, other (minimal communication) Results - Labs CBC & Chem 7: 11/29/18 08:53 12/01/18 09:29 Labs: Laboratory Last Values WBC 12.9 K/mm3 (4.5-11.0) H 11/29/18 08:53 RBC 3.70 M/mm3 (3.65-5.03) 11/29/18 08:53 Hgb 11.6 gm/dl (11.8-15.2) L 11/29/18 08:53 Hct 34.3 % (35.5-45.6) L 11/29/18 08:53 MCV 93 fl (84-94) 11/29/18 08:53 MCH 31 pg (28-32) 11/29/18 08:53 MCHC 34 % (32-34) 11/29/18 08:53 RDW 24.9 % (13.2-15.2) H 11/29/18 08:53 Plt Count 294 K/mm3 (140-440) 11/29/18 08:53 Lymph % (Auto) Seafood [employer]vester 11/29/18 08:53 Lymph # Se[employer] 11/29/18 08:53 Add Manual Diff Complete 11/29/18 08:53 Total Counted 100 11/29/18 08:53 Seg Neutrophils % Seafood Harvester 11/29/18 08:53 Seg Neuts % (Manual) 90.0 % (40.0-70.0) H 11/29/18 08:53 Band Neutrophils % 0 % 11/29/18 08:53 Lymphocytes % (Manual) 4.0 % (13.4-35.0) L 11/29/18 08:53 Reactive Lymphs % (Man) 0 % 11/29/18 08:53 Monocytes % (Manual) 2.0 % (0.0-7.3) 11/29/18 08:53 Eosinophils % (Manual) 3.0 % (0.0-4.3) 11/29/18 08:53 Basophils % (Manual) 0 % (0.0-1.8) 11/29/18 08:53 Metamyelocytes % 1.0 % 11/29/18 08:53 Myelocytes % 0 % 11/29/18 08:53 Promyelocytes % 0 % 11/29/18 08:53 Blast Cells % 0 % 11/29/18 08:53 Nucleated RBC % 2.0 % (0.0-0.9) H 11/29/18 08:53 Seg Neutrophils # Man 11.6 K/mm3 (1.8-7.7) H 11/29/18 08:53 Band Neutrophils # 0.0 K/mm3 11/29/18 08:53 Lymphocytes # (Manual) 0.5 K/mm3 (1.2-5.4) L 11/29/18 08:53 Abs React Lymphs (Man) 0.0 K/mm3 11/29/18 08:53 Monocytes # (Manual) 0.3 K/mm3 (0.0-0.8) 11/29/18 08:53 Eosinophils # (Manual) 0.4 K/mm3 (0.0-0.4) 11/29/18 08:53 Basophils # (Manual) 0.0 K/mm3 (0.0-0.1) 11/29/18 08:53 Metamyelocytes # 0.1 K/mm3 11/29/18 08:53 Myelocytes # 0.0 K/mm3 11/29/18 08:53 Promyelocytes # 0.0 K/mm3 11/29/18 08:53 Blast Cells # 0.0 K/mm3 11/29/18 08:53 WBC Morphology Not Reportable 11/29/18 08:53 Hypersegmented Neuts Not Reportable 11/29/18 08:53 Hyposegmented Neuts Not Reportable 11/29/18 08:53 Hypogranular Neuts Not Reportable 11/29/18 08:53 Smudge Cells Not Reportable 11/29/18 08:53 Toxic Granulation Not Reportable 11/29/18 08:53 Toxic Vacuolation Not Reportable 11/29/18 08:53 Dohle Bodies Not Reportable 11/29/18 08:53 Pelger-Huet Anomaly Not Reportable 11/29/18 08:53 Jessica Rods Not Reportable 11/29/18 08:53 Platelet Estimate Consistent w auto 11/29/18 08:53 Clumped Platelets Not Reportable 11/29/18 08:53 Plt Clumps, EDTA Not Reportable 11/29/18 08:53 Large Platelets Not Reportable 11/29/18 08:53 Giant Platelets Not Reportable 11/29/18 08:53 Platelet Satelliting Not Reportable 11/29/18 08:53 Plt Morphology Comment Not Reportable 11/29/18 08:53 RBC Morphology Not Reportable 11/29/18 08:53 Dimorphic RBCs Not Reportable 11/29/18 08:53 Polychromasia Not Reportable 11/29/18 08:53 Hypochromasia 1+ 11/29/18 08:53 Poikilocytosis 1+ 11/29/18 08:53 Anisocytosis 2+ 11/29/18 08:53 Microcytosis Few 11/29/18 08:53 Macrocytosis Not Reportable 11/29/18 08:53 Spherocytes Not Reportable 11/29/18 08:53 Pappenheimer Bodies Not Reportable 11/29/18 08:53 Sickle Cells Not Reportable 11/29/18 08:53 Target Cells 2+ 11/29/18 08:53 Tear Drop Cells Not Reportable 11/29/18 08:53 Ovalocytes Not Reportable 11/29/18 08:53 Helmet Cells Not Reportable 11/29/18 08:53 [place] Bodies Not Reportable 11/29/18 08:53 Frankewing Rings Not Reportable 11/29/18 08:53 [place] Cells Not Reportable 11/29/18 08:53 Bite Cells Not Reportable 11/29/18 08:53 Crenated Cell Not Reportable 11/29/18 08:53 Elliptocytes Not Reportable 11/29/18 08:53 Acanthocytes (Spur) Not Reportable 11/29/18 08:53 Rouleaux Not Reportable 11/29/18 08:53 Hemoglobin C Crystals Not Reportable 11/29/18 08:53 Schistocytes Not Reportable 11/29/18 08:53 Malaria parasites Not Reportable 11/29/18 08:53 Hugo Bodies Not Reportable 11/29/18 08:53 Hem Pathologist Commnt No 11/29/18 08:53 PT 21.6 Sec. (12.2-14.9) H 11/27/18 21:47 INR 1.75 (0.87-1.13) H 11/27/18 21:47 APTT 34.7 Sec. (24.2-36.6) 11/27/18 21:47 Sodium TNR 12/01/18 05:49 Potassium TNR 12/01/18 05:49 Chloride TNR 12/01/18 05:49 Carbon Dioxide TNR 12/01/18 05:49 Anion Gap TNR 12/01/18 05:49 BUN TNR 12/01/18 05:49 Creatinine TNR 12/01/18 05:49 Estimated GFR TNR 12/01/18 05:49 BUN/Creatinine Ratio TNR 12/01/18 05:49 Glucose TNR 12/01/18 05:49 POC Glucose 86 (70-105) 11/30/18 23:40 Lactic Acid 1.90 mmol/L (0.7-2.0) 11/27/18 21:47 Calcium TNR 12/01/18 05:49 Phosphorus 3.70 mg/dL (2.5-4.5) 11/30/18 05:24 Magnesium 3.10 mg/dL (1.7-2.3) H 11/28/18 15:56 Total Bilirubin TNR 12/01/18 05:49 AST TNR 12/01/18 05:49 ALT TNR 12/01/18 05:49 Alkaline Phosphatase TNR 12/01/18 05:49 Ammonia 21.0 umol/L (25-60) L 11/27/18 21:47 Total Creatine Kinase 131 units/L (55-170) 11/30/18 05:24 Troponin T 0.095 ng/mL (0.00-0.029) H 11/29/18 08:53 Total Protein TNR 12/01/18 05:49 Albumin TNR 12/01/18 05:49 Albumin/Globulin Ratio TNR 12/01/18 05:49 Prealbumin 0.240 g/L (0.200-0.400) 11/30/18 05:24 Triglycerides 106 mg/dL (2-149) 11/27/18 21:47 Cholesterol 306 mg/dL (50-199) H 11/27/18 21:47 LDL Cholesterol Direct 22 mg/dL (50-130) L 11/27/18 21:47 HDL Cholesterol 21 mg/dL (40-59) L 11/27/18 21:47 Cholesterol/HDL Ratio 14.57 % 11/27/18 21:47 CA 19-9 Antigen <3 U/mL (<34) 11/29/18 08:53 Prostate Specific Ag 0.89 ng/mL (0.00-4.00) 11/29/18 08:53 TSH 0.010 mlU/mL (0.270-4.200) L 11/27/18 21:47 Free T4 0.92 ng/dL (0.76-1.46) 11/27/18 22:49 PTH Intact 50.60 pg/mL (15-65) 11/30/18 05:24 Urine Color [place] (Yellow) 11/28/18 03:31 Urine Turbidity Slightly-cloudy (Clear) 11/28/18 03:31 Urine pH 6.0 (5.0-7.0) 11/28/18 03:31 Ur Specific [place] 1.019 (1.003-1.030) 11/28/18 03:31 Urine Protein 100 mg/dl mg/dL (Negative) 11/28/18 03:31 Urine Glucose (UA) Neg mg/dL (Negative) 11/28/18 03:31 Urine Ketones Neg mg/dL (Negative) 11/28/18 03:31 Urine Blood Sm (Negative) 11/28/18 03:31 Urine Nitrite Neg (Negative) 11/28/18 03:31 Urine Bilirubin Mod (Negative) 11/28/18 03:31 Urine Ictotest Positive (Negative) 11/28/18 03:31 Urine Urobilinogen 4.0 mg/dL (<2.0) 11/28/18 03:31 Ur Leukocyte Esterase Mod (Negative) 11/28/18 03:31 Urine WBC (Auto) 114.0 /HPF (0.0-6.0) H 11/28/18 03:31 Urine RBC (Auto) 7.0 /HPF (0.0-6.0) 11/28/18 03:31 U Epithel Cells (Auto) 1.0 /HPF (0-13.0) 11/28/18 03:31 Urine Bacteria (Auto) 4+ /HPF (Negative) 11/28/18 03:31 Amorphous Crystals Few 11/28/18 03:31 Urine Mucus Few /HPF 11/28/18 03:31 Hepatitis A IgM Ab Non-reactive (NonReactive) 11/29/18 16:32 Hep Bs Antigen Nonreactive (Negative) 11/29/18 16:32 Hep B Core IgM Ab Non-reactive (NonReactive) 11/29/18 16:32 Hepatitis C Antibody Nonreactive (NonReactive) 11/29/18 16:32 Active Medications - Current Medications Current Medications: Generic Name Dose Route Start Last Admin Trade Name Freq PRN Reason Stop Dose Admin Acetaminophen 650 mg 11/28/18 02:40 Tylenol PO Q4H PRN Pain MILD(1-3)/Fever >100.5/ROSALES Aspirin 325 mg 11/28/18 10:00 11/30/18 09:45 Aspirin PO 325 mg QDAY ALEXSANDRA Administration Atorvastatin Calcium 40 mg 11/28/18 22:00 11/30/18 22:06 Lipitor PO 40 mg QHS ALEXSANDRA Administration Dextrose 50 ml 11/28/18 03:08 11/30/18 22:03 D50w (25gm) Syringe IV 50 ml PRN PRN Administration Hypoglycemia Dextrose/Sodium Chloride 1,000 mls @ 100 mls/hr 11/29/18 21:00 12/01/18 04:39 D5ns IV 100 mls/hr DIRECT ALEXSANDRA Administration Dextrose/Sodium Chloride 1,000 mls @ 250 mls/hr 12/01/18 09:00 D5ns IV 12/01/18 16:00 DIRECT ALEXSANDRA Insulin Glargine 10 units 11/28/18 22:00 11/30/18 22:00 Lantus SUB-Q Not Given QHS [facility] Insulin Human Lispro 0 unit 11/28/18 07:30 11/30/18 22:06 [facility]alog SUB-Q [facility] Protocol Midodrine 10 mg 12/01/18 08:00 Proamatine PO TID [facility] Morphine Sulfate 2 mg 11/28/18 02:40 11/30/18 15:05 Morphine IV 2 mg Q3H PRN Administration Pain, Moderate (4-6) Ondansetron HCl 4 mg 11/28/18 02:40 Zofran IV Q8H PRN Nausea And Vomiting Oxycodone/Acetaminophen 1 tab 11/28/18 02:40 11/29/18 11:41 Percocet 5/325 PO 1 tab Q4H PRN Administration Pain, Moderate (4-6) Sodium Chloride 10 ml 11/28/18 10:00 11/30/18 22:06 Sodium Chloride Flush Syringe 10 Ml IV 10 ml BID ALEXSANDRA Administration Sodium Chloride 10 ml 11/28/18 02:40 Sodium Chloride Flush Syringe 10 Ml IV PRN PRN LINE FLUSH Nutrition/Malnutrition Assess - Dietary Evaluation Nutrition/Malnutrition Findings: Nutrition Notes Start: 11/29/18 16:56 Freq: Status: Active Protocol: Document 11/30/18 11:51 EB (Rec: 11/30/18 12:01 EB [id number]) Co-Sign 11/30/18 11:51 LP Nutrition Notes Need for Assessment generated from: dope mixer Initial or Follow up Reassessment Current Diagnosis Acute Kidney Injury Other Pertinent Diagnosis liver mass Current Diet regular Labs/Tests Na 145 K 4.6 BUN 79 Cr 4.6 Bili 12.3 Pertinent Medications Reviewed Height 5 ft 6 in Weight 63.5 kg [place] Body Weight (kg) 64.54 BMI 22.6 Subjective/Other Information Consulted for poor oral intake . Pt consumed 0% breakfast this am and 50% of meals yesterday. Pt states he drinks ONS BID. Pt states all food tastes sweet and requests " vegetable juice." Percent of energy/protein needs met: 68%/57% Burn Absent Trauma Absent #1 Nutrition Diagnosis Inadequate oral intake Diagnosis Progress(for reassessment Continues documentation) Is patient on ventilator? No Is Patient Ambulatory and/or Out of Bed Yes REE-([place]. Jeor-ambulatory/OOB) [ 1713.075 [id number]] Calculation Used for Recommendations [place] or Additional Notes protein (1.2-1.5g/kg): 76-95g fluid: 1mL/kcal or per Nutrition Intervention Change Diet Order: Add chopped meat modification Add Supplement/Snack (indicate name/kcal Ensure Enlive BID /protein ) Provides kCal: 700 Provides Protein (gm) 40 Goal #1 Diet and ONS to meet 75-100% of energy and protein needs Follow-Up By: 12/03/18 Additional Comments f/u: intakes
[2018-12-01] MEDS: HumaLOG SUB-Q SCH ×4 (09:33→21:48)
[2018-12-01] MEDS: SODIUM CHLORIDE FLUSH SYRINGE 10 ML IV SCH ×2 (09:43→21:51)
[2018-12-01] MEDS: PROAMATINE PO SCH ×3 (09:43→20:49)
[2018-12-01] MEDS: ASPIRIN PO SCH (09:43)
[2018-12-01 10:12] LABS: Calcium 8.6 mg/dL (8.4-10.2)
--- NOTE | 2018-12-01 11:49 | Gastroenterology Progress Note ---
Assessment and Plan This is a 73 yo male, with pmh of DM, thyroid disorder, and h/o pituitary tumor s/p surgery admitted for weakness and found to have worsening kidney function, and elevated liver enzymes. 1.jaundice 2.elevated LFTs 3.liver mass -LFTs stable (T.minerva 12.30, AST 191, ALT 90, alk phos 934) -hepatitis panel negative -US with hepatomegaly with heterogenous echotexture of the entire liver suspicious for metastatic disease, poorly marginated mass in the right hepatic lobe at least 4 cm. -MR/MRCP-innumerable nodules within the liver, small amount of ascites, and bone lesions within T6 and T11 suspicious for metastatic disease -s/p liver bx 11/17/2018 at [facility] with results showing neuroendocrine tumor (see below records) -etiology-likely due to liver mass likely intrahepatic -clinically, patient is w/o GI complaints such as abd pain or N/V. Tolerating diet. -continue supportive care -further management per oncology -will sign off, please call [facility]2018 Liver bx path - liver mass biopsy 11/17/18 - well differentiated neuroendocrine tumor (G3) Immunohistochemical stains positive for synaptophysin, chromogranin, Ki-67 (>20%), negative for TTF1, PSA, and PSAP Although may represent a primary liver tumor, the possibility of metastatsis cannot be excluded. CT chest/abdomen/pelvis on 11/15/2018 - limited exam due to no IV contrast due to elevated Cr. - enlarged, heterogenous liver with findings worrisome for extensive metastatic disease. - sclerotic lesion in the T11, worrisome for osseous metastatic disease. - tiny pulmonary nodules. - subcutaneous edema, mild ascites, and trace left pleural effusion. - gastric wall thickening may be due to underdistension. Portal vein US 11/12/2018 - paten hepatic vasculature. MRI brain on 07/15/2018 - postsurgical changes within the sella - grossly unchanged nodular thickening of the pituitary stalk. - moderate nonspecific ischemic changes within periventricular white matter and subcortical white matter - mild diffuse cortical atrophy - mild dilatation of the lateral, third and fourth ventricles - mucosal thickening within paranasal sinuses Subjective Date of service: 12/01/18 Principal diagnosis: liver mass Interval history: No acute distress. Denies abd pain or N/V. Objective - Constitutional Vitals: Temp Pulse Resp BP Pulse Ox 98.6 F 70 20 91/54 93 12/01/18 02:51 12/01/18 02:51 12/01/18 02:51 12/01/18 02:51 12/01/18 02:51 General appearance: no acute distress - Respiratory Respiratory: bilateral: diminished - Cardiovascular Rhythm: regular - Gastrointestinal General gastrointestinal: Present: soft, non-tender, non-distended, normal bowel sounds - Labs CBC & Chem 7: 11/29/18 08:53 12/01/18 09:29 Labs: Laboratory Results - last 24 hr 11/29/18 11/30/18 11/30/18 08:53 11:41 17:58 Sodium Potassium Chloride Carbon Dioxide Anion Gap BUN Creatinine Estimated GFR BUN/Creatinine Ratio Glucose POC Glucose 128 H 42 L Calcium Total Bilirubin AST ALT Alkaline Phosphatase Total Protein Albumin Albumin/Globulin Ratio CA 19-9 Antigen <3 11/30/18 11/30/18 11/30/18 22:00 22:56 23:40 Sodium Potassium Chloride Carbon Dioxide Anion Gap BUN Creatinine Estimated GFR BUN/Creatinine Ratio Glucose 100 POC Glucose < 40 L 86 Calcium Total Bilirubin AST ALT Alkaline Phosphatase Total Protein Albumin Albumin/Globulin Ratio CA 19-9 Antigen 12/01/18 12/01/18 12/01/18 05:49 08:29 09:29 Sodium TNR 143 Potassium TNR 4.9 Chloride TNR 110.7 H Carbon Dioxide TNR 17 L Anion Gap TNR 20 BUN TNR 80 H Creatinine TNR 5.0 H Estimated GFR TNR 14 BUN/Creatinine Ratio TNR 16 Glucose TNR 114 H POC Glucose 84 Calcium TNR 8.6 Total Bilirubin TNR AST TNR ALT TNR Alkaline Phosphatase TNR Total Protein TNR Albumin TNR Albumin/Globulin Ratio TNR CA 19-9 Antigen
--- NOTE | 2018-12-01 13:02 | Progress Note ---
Assessment and Plan 73 yo M s/p debridement RLE wound, POD 1 Plan; 1. Discussed with wound care RM - continue dressing changes per RN. 2. need to encourage PO intake 3. elevation of RLE 4. follow up in wound care clinic after discharge or wound care at [place] Will s/o Thank you, please call with questions Subjective Date of service: 12/01/18 Narrative: Pt seen and examined. No overnight events or acute complaints. Objective Vital Signs - 12hr 12/01/18 02:51 Temperature 98.6 F Pulse Rate 70 Respiratory 20 Rate Blood Pressure 91/54 O2 Sat by Pulse 93 Oximetry - General physical appearance Narrative Exam: Gen: Awake and alert. NAD ENT: +icterus CV: S1, S2+ Resp: even and unlabored Ext; RLE dressing removed. Wound bed healthy with some areas of thick adherent slough. No bleeding. No erythema or drainage. - Labs 11/29/18 08:53 12/01/18 09:29 Diabetes panel 11/30/18 12/01/18 12/01/18 Range/Units 22:56 05:49 09:29 Sodium TNR 143 Potassium TNR 4.9 Chloride TNR 110.7 H Carbon Dioxide TNR 17 L BUN TNR 80 H Creatinine TNR 5.0 H Glucose 100 TNR 114 H (75-100) mg/dL Calcium TNR 8.6 AST TNR ALT TNR Alkaline Phosphatase TNR Total Protein TNR Albumin TNR Calcium panel 12/01/18 12/01/18 Range/Units 05:49 09:29 Calcium TNR 8.6 Albumin TNR Pituitary panel 11/30/18 12/01/18 12/01/18 Range/Units 22:56 05:49 09:29 Sodium TNR 143 Potassium TNR 4.9 Chloride TNR 110.7 H Carbon Dioxide TNR 17 L BUN TNR 80 H Creatinine TNR 5.0 H Glucose 100 TNR 114 H (75-100) mg/dL Calcium TNR 8.6 Adrenal panel 11/30/18 12/01/18 12/01/18 Range/Units 22:56 05:49 09:29 Sodium TNR 143 Potassium TNR 4.9 Chloride TNR 110.7 H Carbon Dioxide TNR 17 L BUN TNR 80 H Creatinine TNR 5.0 H Glucose 100 TNR 114 H (75-100) mg/dL Calcium TNR 8.6 Total Bilirubin TNR AST TNR ALT TNR Alkaline Phosphatase TNR Total Protein TNR Albumin TNR
[2018-12-01] MEDS ORDERED: SODIUM BICARBONATE 100 MEQ in D5W 1,000 ML IV SCH (20:00)
[2018-12-01] MEDS: LANTUS SUB-Q SCH (21:50)
[2018-12-02] MEDS ORDERED: NACL 0.9% 1000 ML 1,000 ML IV ONE (05:05)
[2018-12-02 05:55] LABS: Albumin 1.7 g/dL (3.9-5); Bilirubin,Direct 6.9 mg/dL (0-0.2); Calcium 8.1 mg/dL (8.4-10.2)
--- NOTE | 2018-12-02 07:09 | Hem/Onc Progress Note ---
Assessment and Plan 1. Liver lesion. As per the information available, the patient has undergone biopsy at the [facility]. More information is being obtained from there. 2. Elevated bilirubin, likely secondary to liver lesions. 3. History of loss of weight, appetite, and diarrhea. 4. Nephrology surgical team has seen the patient and Cardiology team has seen the patient. 5. History of skin infection in lower extremities. 6. Renal impairment. 7. Tachycardia. GI team Dr. Castellano saw the patient. We will get more information from the [place] system. Dr Castellano called - neuroendocrine - will review the notes jaundice - MRCP MRCP - no obstruction of liver performance and bilirubin - will make it challenging will d/w family ? hospice option? sandostatin trial vs ref back to [place]? 12/02 d/w daughter reg neuroendocrine ca - stage IV - high minerva -LFTs - poor performance status non curative disease hospice as option pt on sandostatin - Patient Problems (1) Liver masses Status: Acute Subjective Date of service: 12/02/18 Principal diagnosis: neuroendocrine tumor Interval history: daughter + Objective - Constitutional Vitals: Last Vital Signs Temp 97.2 F L 12/02/18 06:00 Pulse 95 H 12/02/18 06:01 Resp 16 12/02/18 06:27 BP 82/44 12/02/18 06:24 Pulse Ox 96 12/02/18 06:01 Pain Intensity (0-10): denies any pain General appearance: no acute distress Performance status: 4-completely disabled - EENT Eyes: EOM intact ENT: hearing intact Lymph node exam: negative cervical - Neck Neck: normal ROM - Respiratory Respiratory effort: Positive: normal Respiratory: bilateral: diminished - Cardiovascular Heart Sounds: Present: S1 & S2 Extremity abnormal: edema, other (bandage) - Gastrointestinal General gastrointestinal: Present: soft, non-tender Rectal Exam: deferred - Genitourinary Male genitourinary: Present: deferred - Integumentary Integumentary: warm - Musculoskeletal Musculoskeletal: generalized weakness - Neurologic Neurologic: moves all extremities - Labs Lab Results: Laboratory Results - last 24 hr 12/01/18 12/01/18 12/01/18 08:29 09:29 11:51 Sodium 143 Potassium 4.9 Chloride 110.7 H Carbon Dioxide 17 L Anion Gap 20 BUN 80 H Creatinine 5.0 H Estimated GFR 14 BUN/Creatinine Ratio 16 Glucose 114 H POC Glucose 84 143 H Calcium 8.6 Total Bilirubin Direct Bilirubin Indirect Bilirubin AST ALT Alkaline Phosphatase Total Protein Albumin Albumin/Globulin Ratio 12/01/18 12/01/18 12/02/18 18:18 21:28 04:23 Sodium 145 Potassium 5.0 Chloride 109.5 H Carbon Dioxide 14 L Anion Gap 27 BUN 80 H Creatinine 5.5 H Estimated GFR 12 BUN/Creatinine Ratio 15 Glucose 162 H POC Glucose 192 H 203 H Calcium 8.1 L Total Bilirubin 9.50 H Direct Bilirubin 6.9 H Indirect Bilirubin 2.6 AST 1678 H ALT 296 H Alkaline Phosphatase 875 H Total Protein 5.3 L Albumin 1.7 L Albumin/Globulin Ratio 0.5 12/02/18 05:02 Sodium Potassium Chloride Carbon Dioxide Anion Gap BUN Creatinine Estimated GFR BUN/Creatinine Ratio Glucose POC Glucose 138 H Calcium Total Bilirubin Direct Bilirubin Indirect Bilirubin AST ALT Alkaline Phosphatase Total Protein Albumin Albumin/Globulin Ratio Medications & Allergies - Medications Allergies/Adverse Reactions: Allergies No Known Allergies Allergy (Verified 11/27/18 23:55) Home Medications: Home Medications Medication Instructions Recorded Confirmed Last Taken Type AtorvaSTATin [Lipitor] 40 mg PO DAILY 11/27/18 11/28/18 11/27/18 22:00 History Cholecalciferol (Vitamin D3) 1,000 1000units PO DAILY 11/27/18 11/28/18 11/27/18 10:00 History [Vitamin D3] Docusate Sodium [Colace] 100 mg PO BID PRN 11/27/18 11/27/18 Unknown History Furosemide [Lasix] 20 mg PO DAILY 11/27/18 11/28/18 11/27/18 10:00 History Hydrocortisone 10 mg PO QAM 11/27/18 11/28/18 11/27/18 10:00 History Hydrocortisone 15 mg PO QPM 11/27/18 11/28/18 11/27/18 22:00 History Levothyroxine [Synthroid] 25 mcg PO QAM 11/27/18 11/28/18 11/27/18 10:00 History Levothyroxine [Synthroid] 112 mcg PO QAM 11/27/18 11/28/18 11/27/18 10:00 History Losartan/Hydrochlorothiazide 1 each PO DAILY 11/27/18 11/28/18 11/27/18 10:00 History [Losartan-Hctz 100-25 mg Tab] Metformin HCl 1,000 mg PO BID 11/27/18 11/28/18 11/27/18 22:00 History Ranitidine HCl [Acid Belt Tender] 150 mg PO DAILY 11/27/18 11/27/18 Unknown History Hydrocortisone [Cortef TAB] 10 mg PO QAM&QHS 11/28/18 11/28/18 11/27/18 22:00 History Tylenol 500 mg PO PRN 11/28/18 11/30/18 Unknown History Active Medications: Generic Name Dose Route Start Last Admin Trade Name Freq PRN Reason Stop Dose Admin Acetaminophen 650 mg 11/28/18 02:40 Tylenol PO Q4H PRN Pain MILD(1-3)/Fever >100.5/ROSALES Aspirin 325 mg 11/28/18 10:00 12/01/18 09:43 Aspirin PO 325 mg QDAY ALEXSANDRA Administration Atorvastatin Calcium 40 mg 11/28/18 22:00 12/01/18 21:47 Lipitor PO 40 mg QHS ALEXSANDRA Administration Dextrose 50 ml 11/28/18 03:08 11/30/18 22:03 D50w (25gm) Syringe IV 50 ml PRN PRN Administration Hypoglycemia Sodium Bicarbonate 100 meq/ 1,100 mls @ 75 mls/hr 12/01/18 20:00 12/01/18 23:41 Dextrose IV 75 mls/hr DIRECT ALEXSANDRA Administration Insulin Glargine 10 units 11/28/18 22:00 12/01/18 21:50 Lantus SUB-Q 10 units QHS ALEXSANDRA Administration Insulin Human Lispro 0 unit 11/28/18 07:30 12/01/18 21:48 Humalog SUB-Q 3 unit ACHS ALEXSANDRA Administration Protocol Midodrine 10 mg 12/01/18 08:00 12/01/18 20:49 Proamatine PO 10 mg TID ALEXSANDRA Administration Morphine Sulfate 2 mg 11/28/18 02:40 11/30/18 15:05 Morphine IV 2 mg Q3H PRN Administration Pain, Moderate (4-6) Octreotide Acetate 100 mcg 12/01/18 15:00 12/02/18 06:52 Sandostatin SUB-Q 12/04/18 23:59 100 mcg Q8HR ALEXSADNRA Administration Ondansetron HCl 4 mg 11/28/18 02:40 Zofran IV Q8H PRN Nausea And Vomiting Oxycodone/Acetaminophen 1 tab 11/28/18 02:40 11/29/18 11:41 Percocet 5/325 PO 1 tab Q4H PRN Administration Pain, Moderate (4-6) Sodium Chloride 10 ml 11/28/18 10:00 12/01/18 21:51 Sodium Chloride Flush Syringe 10 Ml IV 10 ml BID ALEXSANDRA Administration Sodium Chloride 10 ml 11/28/18 02:40 Sodium Chloride Flush Syringe 10 Ml IV PRN PRN LINE FLUSH
[2018-12-02] MEDS: PROAMATINE PO SCH ×2 (08:16→19:56)
[2018-12-02] MEDS: HumaLOG SUB-Q SCH ×3 (08:22→16:30)
--- NOTE | 2018-12-02 08:58 | Progress Note ---
Assessment and Plan 1. Acute kidney injury: Likely hemodynamic / Vasomotor FIORDALIZA in the setting of hypotension. Baseline renal function is unknown, likely CKD. Hepato-renal syndrome is not ruled out. Renal US was negative. On Midodrine and Octeotide. Continue IV fluids. Renal prognosis is poor. Monitor renal function. Avoid nephrotoxic agents. Meds dosage based on GFR. Unfortunately patient's BP is very low to do dialysis at this time. 2. Shock: Severe hypotension. 3. FEN: Metabolic acidosis, bcarbonate drip. Hyperkalemia, received medication to decrease potassium level. Hypernatremia, improved. Continue IV fluids. 4. Respiratory failure. 5. Liver mass: Neuroendocrine tumour. 6. Abnormal liver function tests: Elevated Transaminases, T.Bilirubin and Alk phos. 7. Elevated troponin. 8. Right lower extremity wound: S/p debridement. Wound care. 9. Gen. debility / Deconditioning. Discussed with his daughter at the bedside. Overall prognosis is poor. Subjective Date of service: 12/02/18 Principal diagnosis: liver mets - mention of neuroendocrine ca Interval history: Patient was seen and examined at the bedside. Objective - Vital Signs Vital signs: Vital Signs - 12hr 12/01/18 12/02/18 12/02/18 22:00 03:00 03:01 Temperature 93.2 F L Pulse Rate 86 88 Respiratory 20 Rate Blood Pressure 75/46 O2 Sat by Pulse 95 Oximetry 12/02/18 12/02/18 12/02/18 06:00 06:01 06:24 Temperature 97.2 F L Pulse Rate 95 H Respiratory Rate Blood Pressure 79/40 82/44 O2 Sat by Pulse 96 Oximetry 12/02/18 12/02/18 06:27 07:42 Temperature 97.5 F L Pulse Rate 107 H Respiratory 16 16 Rate Blood Pressure 80/42 O2 Sat by Pulse 96 Oximetry - General Appearance General appearance: well-developed, appears stated age, other (not responding) EENT: ATNC Neck: supple Respiratory: Present: Clear to Ascultation Cardiology: regular, S1S2, no murmurs Gastrointestinal: no tenderness, distended, hepatomegaly Integumentary: ulcer (right leg) Neurologic: obtunded Musculoskeletal: other (bialteral LE edema, R > L) - Lab 12/02/18 11:44 12/02/18 11:44 Most recent lab results Calcium 8.1 mg/dL (8.4-10.2) L 12/02/18 04:23 Phosphorus 3.70 mg/dL (2.5-4.5) 11/30/18 05:24 Magnesium 3.10 mg/dL (1.7-2.3) H 11/28/18 15:56 Medications & Allergies - Medications Allergies/Adverse Reactions: Allergies No Known Allergies Allergy (Verified 11/27/18 23:55) Home Medications: Home Medications Medication Instructions Recorded Confirmed Last Taken Type AtorvaSTATin [Lipitor] 40 mg PO DAILY 11/27/18 11/28/18 11/27/18 22:00 History Cholecalciferol (Vitamin D3) 1,000 1000units PO DAILY 11/27/18 11/28/18 11/27/18 10:00 History [Vitamin D3] Docusate Sodium [Colace] 100 mg PO BID PRN 11/27/18 11/27/18 Unknown History Furosemide [Lasix] 20 mg PO DAILY 11/27/18 11/28/18 11/27/18 10:00 History Hydrocortisone 10 mg PO QAM 11/27/18 11/28/18 11/27/18 10:00 History Hydrocortisone 15 mg PO QPM 11/27/18 11/28/18 11/27/18 22:00 History Levothyroxine [Synthroid] 25 mcg PO QAM 11/27/18 11/28/18 11/27/18 10:00 History Levothyroxine [Synthroid] 112 mcg PO QAM 11/27/18 11/28/18 11/27/18 10:00 History Losartan/Hydrochlorothiazide 1 each PO DAILY 11/27/18 11/28/18 11/27/18 10:00 History [Losartan-Hctz 100-25 mg Tab] Metformin HCl 1,000 mg PO BID 11/27/18 11/28/18 11/27/18 22:00 History Ranitidine HCl [Acid Research Animal Facility Supervisor] 150 mg PO DAILY 11/27/18 11/27/18 Unknown History Hydrocortisone [Cortef TAB] 10 mg PO QAM&QHS 11/28/18 11/28/18 11/27/18 22:00 History Tylenol 500 mg PO PRN 11/28/18 11/30/18 Unknown History Active Medications: Generic Name Dose Route Start Last Admin Trade Name Freq PRN Reason Stop Dose Admin Acetaminophen 650 mg 11/28/18 02:40 Tylenol PO Q4H PRN Pain MILD(1-3)/Fever >100.5/ROSALES Aspirin 325 mg 11/28/18 10:00 12/01/18 09:43 Aspirin PO 325 mg QDAY ALEXSANDRA Administration Atorvastatin Calcium 40 mg 11/28/18 22:00 12/01/18 21:47 Lipitor PO 40 mg QHS ALEXSANDRA Administration Dextrose 50 ml 11/28/18 03:08 11/30/18 22:03 D50w (25gm) Syringe IV 50 ml PRN PRN Administration Hypoglycemia Sodium Bicarbonate 100 meq/ 1,100 mls @ 75 mls/hr 12/01/18 20:00 12/01/18 23:41 Dextrose IV 75 mls/hr DIRECT ALEXSANDRA Administration Insulin Glargine 10 units 11/28/18 22:00 12/01/18 21:50 Lantus SUB-Q 10 units QHS ALEXSANDRA Administration Insulin Human Lispro 0 unit 11/28/18 07:30 12/02/18 08:22 Humalog SUB-Q Not Given ACHS [facility] Protocol Midodrine 10 mg 12/01/18 08:00 12/02/18 08:16 Proamatine PO 10 mg TID ALEXSANDRA Administration Morphine Sulfate 2 mg 11/28/18 02:40 11/30/18 15:05 Morphine IV 2 mg Q3H PRN Administration Pain, Moderate (4-6) Octreotide Acetate 100 mcg 12/01/18 15:00 12/02/18 06:52 Sandostatin SUB-Q 12/04/18 23:59 100 mcg Q8HR ALEXSANDRA Administration Ondansetron HCl 4 mg 11/28/18 02:40 Zofran IV Q8H PRN Nausea And Vomiting Oxycodone/Acetaminophen 1 tab 11/28/18 02:40 11/29/18 11:41 Percocet 5/325 PO 1 tab Q4H PRN Administration Pain, Moderate (4-6) Sodium Chloride 10 ml 11/28/18 10:00 12/01/18 21:51 Sodium Chloride Flush Syringe 10 Ml IV 10 ml BID ALEXSANDRA Administration Sodium Chloride 10 ml 11/28/18 02:40 Sodium Chloride Flush Syringe 10 Ml IV PRN PRN LINE FLUSH
[2018-12-02] MEDS: SODIUM CHLORIDE FLUSH SYRINGE 10 ML IV SCH (09:48)
[2018-12-02] MEDS: ASPIRIN PO SCH (09:48)
[2018-12-02] MEDS ORDERED: NACL 0.9% 500 ML 500 ML IV ONE (10:42)
--- NOTE | 2018-12-02 10:56 | Progress Note ---
Assessment and Plan Assessment and plan: Addendum entered and electronically signed by DESTINEE JAMES MD 12/01/18 20:00: Right lower extremity wound, status post surgical debridement per surgery Continue Wound Care Original Note: Assessment and Plan Assessment and plan: --Large liver mass :s/p biopsy at [place] [facility]; neuroendocrine tumor [place] Records reviewed GI and hematology oncology following --Transaminitis/ hyperbilirubinemia; due to malignant liver lesion , neuroendocrine tumor --Acute renal failure: Secondary to ATN Continue IV fluid, avoid nephrotoxins Renal ultrasound negative, nephrology evaluation --Hyperkalemia; treated per protocol Follow electrolyte levels, patient refused blood work today --Nonspecific Elevated troponin;denies chest pain or shortness of breath Nonspecific ,dueto demand ischemia , renal impairment,EF 50-55% --Hypercoagulable state/coagulopathy Likely due to the hepatic disease/mass --Dyslipidemia; hold statin in view of transaminitis --Left lower extremity edema; negative DVT --Right lower extremity wound; surgery evaluation noted and appreciated Wound care --Gen. debility/Deconditioning: PT and OT/Rehab --History of hypothyroidism; on Synthroid TSH is very low, possible overcorrection, hold Synthroid repeat TFTs --Full CODE STATUS --DVT Prophylaxis with SCD /coagulopathy Disposition: Request medical records from [place], follow oncology and GI evaluation Plan of Case reviewed with the patient and his nurse Hospitalist Physical - Constitutional Vitals: Temp Pulse Resp BP Pulse Ox 97.5 F L 107 H 16 80/42 96 12/02/18 07:42 12/02/18 07:42 12/02/18 07:42 12/02/18 07:42 12/02/18 07:42 General appearance: Present: no acute distress, cachectic, disheveled, other (ill-looking) Results - Labs CBC & Chem 7: 11/29/18 08:53 12/02/18 04:23 Labs: Laboratory Last Values WBC 12.9 K/mm3 (4.5-11.0) H 11/29/18 08:53 RBC 3.70 M/mm3 (3.65-5.03) 11/29/18 08:53 Hgb 11.6 gm/dl (11.8-15.2) L 11/29/18 08:53 Hct 34.3 % (35.5-45.6) L 11/29/18 08:53 MCV 93 fl (84-94) 11/29/18 08:53 MCH 31 pg (28-32) 11/29/18 08:53 MCHC 34 % (32-34) 11/29/18 08:53 RDW 24.9 % (13.2-15.2) H 11/29/18 08:53 Plt Count 294 K/mm3 (140-440) 11/29/18 08:53 Lymph % (Auto) Exercise Planner 11/29/18 08:53 Lymph # Exercise Planner 11/29/18 08:53 Add Manual Diff Complete 11/29/18 08:53 Total Counted 100 11/29/18 08:53 Seg Neutrophils % Exercise Planner 11/29/18 08:53 Seg Neuts % (Manual) 90.0 % (40.0-70.0) H 11/29/18 08:53 Band Neutrophils % 0 % 11/29/18 08:53 Lymphocytes % (Manual) 4.0 % (13.4-35.0) L 11/29/18 08:53 Reactive Lymphs % (Man) 0 % 11/29/18 08:53 Monocytes % (Manual) 2.0 % (0.0-7.3) 11/29/18 08:53 Eosinophils % (Manual) 3.0 % (0.0-4.3) 11/29/18 08:53 Basophils % (Manual) 0 % (0.0-1.8) 11/29/18 08:53 Metamyelocytes % 1.0 % 11/29/18 08:53 Myelocytes % 0 % 11/29/18 08:53 Promyelocytes % 0 % 11/29/18 08:53 Blast Cells % 0 % 11/29/18 08:53 Nucleated RBC % 2.0 % (0.0-0.9) H 11/29/18 08:53 Seg Neutrophils # Man 11.6 K/mm3 (1.8-7.7) H 11/29/18 08:53 Band Neutrophils # 0.0 K/mm3 11/29/18 08:53 Lymphocytes # (Manual) 0.5 K/mm3 (1.2-5.4) L 11/29/18 08:53 Abs React Lymphs (Man) 0.0 K/mm3 11/29/18 08:53 Monocytes # (Manual) 0.3 K/mm3 (0.0-0.8) 11/29/18 08:53 Eosinophils # (Manual) 0.4 K/mm3 (0.0-0.4) 11/29/18 08:53 Basophils # (Manual) 0.0 K/mm3 (0.0-0.1) 11/29/18 08:53 Metamyelocytes # 0.1 K/mm3 11/29/18 08:53 Myelocytes # 0.0 K/mm3 11/29/18 08:53 Promyelocytes # 0.0 K/mm3 11/29/18 08:53 Blast Cells # 0.0 K/mm3 11/29/18 08:53 WBC Morphology Not Reportable 11/29/18 08:53 Hypersegmented Neuts Not Reportable 11/29/18 08:53 Hyposegmented Neuts Not Reportable 11/29/18 08:53 Hypogranular Neuts Not Reportable 11/29/18 08:53 Smudge Cells Not Reportable 11/29/18 08:53 Toxic Granulation Not Reportable 11/29/18 08:53 Toxic Vacuolation Not Reportable 11/29/18 08:53 Dohle Bodies Not Reportable 11/29/18 08:53 Pelger-Huet Anomaly Not Reportable 11/29/18 08:53 Jessica Rods Not Reportable 11/29/18 08:53 Platelet Estimate Consistent w auto 11/29/18 08:53 Clumped Platelets Not Reportable 11/29/18 08:53 Plt Clumps, EDTA Not Reportable 11/29/18 08:53 Large Platelets Not Reportable 11/29/18 08:53 Giant Platelets Not Reportable 11/29/18 08:53 Platelet Satelliting Not Reportable 11/29/18 08:53 Plt Morphology Comment Not Reportable 11/29/18 08:53 RBC Morphology Not Reportable 11/29/18 08:53 Dimorphic RBCs Not Reportable 11/29/18 08:53 Polychromasia Not Reportable 11/29/18 08:53 Hypochromasia 1+ 11/29/18 08:53 Poikilocytosis 1+ 11/29/18 08:53 Anisocytosis 2+ 11/29/18 08:53 Microcytosis Few 11/29/18 08:53 Macrocytosis Not Reportable 11/29/18 08:53 Spherocytes Not Reportable 11/29/18 08:53 Pappenheimer Bodies Not Reportable 11/29/18 08:53 Sickle Cells Not Reportable 11/29/18 08:53 Target Cells 2+ 11/29/18 08:53 Tear Drop Cells Not Reportable 11/29/18 08:53 Ovalocytes Not Reportable 11/29/18 08:53 Helmet Cells Not Reportable 11/29/18 08:53 [place] Bodies Not Reportable 11/29/18 08:53 [place] Rings Not Reportable 11/29/18 08:53 [place] Cells Not Reportable 11/29/18 08:53 Bite Cells Not Reportable 11/29/18 08:53 Crenated Cell Not Reportable 11/29/18 08:53 Elliptocytes Not Reportable 11/29/18 08:53 Acanthocytes (Spur) Not Reportable 11/29/18 08:53 Rouleaux Not Reportable 11/29/18 08:53 Hemoglobin C Crystals Not Reportable 11/29/18 08:53 Schistocytes Not Reportable 11/29/18 08:53 Malaria parasites Not Reportable 11/29/18 08:53 Hugo Bodies Not Reportable 11/29/18 08:53 Hem Pathologist Commnt No 11/29/18 08:53 PT 21.6 Sec. (12.2-14.9) H 11/27/18 21:47 INR 1.75 (0.87-1.13) H 11/27/18 21:47 APTT 34.7 Sec. (24.2-36.6) 11/27/18 21:47 Sodium 145 mmol/L (137-145) 12/02/18 04:23 Potassium 5.0 mmol/L (3.6-5.0) 12/02/18 04:23 Chloride 109.5 mmol/L (98-107) H 12/02/18 04:23 Carbon Dioxide 14 mmol/L (22-30) L 12/02/18 04:23 Anion Gap 27 mmol/L 12/02/18 04:23 BUN 80 mg/dL (9-20) H 12/02/18 04:23 Creatinine 5.5 mg/dL (0.8-1.5) H 12/02/18 04:23 Estimated GFR 12 ml/min 12/02/18 04:23 BUN/Creatinine Ratio 15 % 12/02/18 04:23 Glucose 162 mg/dL (75-100) H 12/02/18 04:23 POC Glucose 114 (70-105) H 12/02/18 07:51 Lactic Acid 1.90 mmol/L (0.7-2.0) 11/27/18 21:47 Calcium 8.1 mg/dL (8.4-10.2) L 12/02/18 04:23 Phosphorus 3.70 mg/dL (2.5-4.5) 11/30/18 05:24 Magnesium 3.10 mg/dL (1.7-2.3) H 11/28/18 15:56 Total Bilirubin 9.50 mg/dL (0.1-1.2) H 12/02/18 04:23 Direct Bilirubin 6.9 mg/dL (0-0.2) H 12/02/18 04:23 Indirect Bilirubin 2.6 mg/dL 12/02/18 04:23 AST 1678 units/L (5-40) H 12/02/18 04:23 ALT 296 units/L (7-56) H 12/02/18 04:23 Alkaline Phosphatase 875 units/L (35-129) H 12/02/18 04:23 Ammonia 21.0 umol/L (25-60) L 11/27/18 21:47 Total Creatine Kinase 131 units/L (55-170) 11/30/18 05:24 Troponin T 0.095 ng/mL (0.00-0.029) H 11/29/18 08:53 Total Protein 5.3 g/dL (6.3-8.2) L 12/02/18 04:23 Albumin 1.7 g/dL (3.9-5) L 12/02/18 04:23 Albumin/Globulin Ratio 0.5 % 12/02/18 04:23 Prealbumin 0.240 g/L (0.200-0.400) 11/30/18 05:24 Triglycerides 106 mg/dL (2-149) 11/27/18 21:47 Cholesterol 306 mg/dL (50-199) H 11/27/18 21:47 LDL Cholesterol Direct 22 mg/dL (50-130) L 11/27/18 21:47 HDL Cholesterol 21 mg/dL (40-59) L 11/27/18 21:47 Cholesterol/HDL Ratio 14.57 % 11/27/18 21:47 CA 19-9 Antigen <3 U/mL (<34) 11/29/18 08:53 Prostate Specific Ag 0.89 ng/mL (0.00-4.00) 11/29/18 08:53 TSH 0.010 mlU/mL (0.270-4.200) L 11/27/18 21:47 Free T4 0.92 ng/dL (0.76-1.46) 11/27/18 22:49 PTH Intact 50.60 pg/mL (15-65) 11/30/18 05:24 Urine Color [place] (Yellow) 11/28/18 03:31 Urine Turbidity Slightly-cloudy (Clear) 11/28/18 03:31 Urine pH 6.0 (5.0-7.0) 11/28/18 03:31 Ur Specific [place] 1.019 (1.003-1.030) 11/28/18 03:31 Urine Protein 100 mg/dl mg/dL (Negative) 11/28/18 03:31 Urine Glucose (UA) Neg mg/dL (Negative) 11/28/18 03:31 Urine Ketones Neg mg/dL (Negative) 11/28/18 03:31 Urine Blood Sm (Negative) 11/28/18 03:31 Urine Nitrite Neg (Negative) 11/28/18 03:31 Urine Bilirubin Mod (Negative) 11/28/18 03:31 Urine Ictotest Positive (Negative) 11/28/18 03:31 Urine Urobilinogen 4.0 mg/dL (<2.0) 11/28/18 03:31 Ur Leukocyte Esterase Mod (Negative) 11/28/18 03:31 Urine WBC (Auto) 114.0 /HPF (0.0-6.0) H 11/28/18 03:31 Urine RBC (Auto) 7.0 /HPF (0.0-6.0) 11/28/18 03:31 U Epithel Cells (Auto) 1.0 /HPF (0-13.0) 11/28/18 03:31 Urine Bacteria (Auto) 4+ /HPF (Negative) 11/28/18 03:31 Amorphous Crystals Few 11/28/18 03:31 Urine Mucus Few /HPF 11/28/18 03:31 Hepatitis A IgM Ab Non-reactive (NonReactive) 11/29/18 16:32 Hep Bs Antigen Nonreactive (Negative) 11/29/18 16:32 Hep B Core IgM Ab Non-reactive (NonReactive) 11/29/18 16:32 Hepatitis C Antibody Nonreactive (NonReactive) 11/29/18 16:32 Active Medications - Current Medications Current Medications: Generic Name Dose Route Start Last Admin Trade Name Freq PRN Reason Stop Dose Admin Acetaminophen 650 mg 11/28/18 02:40 Tylenol PO Q4H PRN Pain MILD(1-3)/Fever >100.5/ROSALES Aspirin 325 mg 11/28/18 10:00 12/02/18 09:48 Aspirin PO 325 mg QDAY ALEXSANDRA Administration Atorvastatin Calcium 40 mg 11/28/18 22:00 12/01/18 21:47 Lipitor PO 40 mg QHS ALEXSANDRA Administration Dextrose 50 ml 11/28/18 03:08 11/30/18 22:03 D50w (25gm) Syringe IV 50 ml PRN PRN Administration Hypoglycemia Sodium Bicarbonate 100 meq/ 1,100 mls @ 75 mls/hr 12/01/18 20:00 12/01/18 23:41 Dextrose IV 75 mls/hr DIRECT ALEXSANDRA Administration Sodium Chloride 500 mls @ 999 mls/hr 12/02/18 10:42 Nacl 0.9% 500 Ml IV 12/02/18 11:12 ONCE ONE Insulin Glargine 10 units 11/28/18 22:00 12/01/18 21:50 Lantus SUB-Q 10 units QHS ALEXSANDRA Administration Insulin Human Lispro 0 unit 11/28/18 07:30 12/02/18 08:22 Humalog SUB-Q Not Given ACHS [facility] Protocol Midodrine 10 mg 12/01/18 08:00 12/02/18 08:16 Proamatine PO 10 mg TID ALEXSANDRA Administration Morphine Sulfate 2 mg 11/28/18 02:40 11/30/18 15:05 Morphine IV 2 mg Q3H PRN Administration Pain, Moderate (4-6) Octreotide Acetate 100 mcg 12/01/18 15:00 12/02/18 06:52 Sandostatin SUB-Q 12/04/18 23:59 100 mcg Q8HR ALEXSANDRA Administration Ondansetron HCl 4 mg 11/28/18 02:40 Zofran IV Q8H PRN Nausea And Vomiting Oxycodone/Acetaminophen 1 tab 11/28/18 02:40 11/29/18 11:41 Percocet 5/325 PO 1 tab Q4H PRN Administration Pain, Moderate (4-6) Sodium Chloride 10 ml 11/28/18 10:00 12/02/18 09:48 Sodium Chloride Flush Syringe 10 Ml IV 10 ml BID ALEXSANDRA Administration Sodium Chloride 10 ml 11/28/18 02:40 Sodium Chloride Flush Syringe 10 Ml IV PRN PRN LINE FLUSH Nutrition/Malnutrition Assess - Dietary Evaluation Nutrition/Malnutrition Findings: Nutrition Notes Start: 11/29/18 16:56 Freq: Status: Active Protocol: Document 11/30/18 11:51 EB (Rec: 11/30/18 12:01 EB [id number]) Co-Sign 11/30/18 11:51 LP Nutrition Notes 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 Pt consumed 0% breakfast this am and 50% of meals yesterday. Pt states he drinks ONS BID. Pt states all food tastes sweet and requests " vegetable juice." Percent of energy/protein needs met: 68%/57% Burn Absent Trauma Absent #1 Nutrition Diagnosis Inadequate oral intake Diagnosis Progress(for reassessment Continues documentation) Is patient on ventilator? No Is Patient Ambulatory and/or Out of Bed Yes REE-(Steen-St. Jeor-ambulatory/OOB) [ 1713.075 [id number]] Calculation Used for Recommendations [facility] Additional Notes protein (1.2-1.5g/kg): 76-95g fluid: 1mL/kcal or per MD Nutrition Intervention Change Diet Order: Add chopped meat modification Add Supplement/Snack (indicate name/kcal Ensure Enlive BID /protein ) Provides kCal: 700 Provides Protein (gm) 40 Goal #1 Diet and ONS to meet 75-100% of energy and protein needs Follow-Up By: 12/03/18 Additional Comments f/u: intakes
[2018-12-02] MEDS ORDERED: LEVOPHED DRIP 4 MG/NS 250 ML 4 MG/250 ML BAG IV ONE (11:15)
[2018-12-02] MEDS: LEVOPHED DRIP 4 MG/NS 250 ML 4 MG/250 ML BAG IV SCH ×2 (11:15→15:23)
--- NOTE | 2018-12-02 11:49 | XRay Report ---
Single view chest: Compared to 11/27/18. History: Post intubation. Findings: Normal cardiomediastinal silhouette. Trachea is midline. Tip of endotracheal tube in normal position. Linear densities at the right lower lobe with adjacent airspace opacities. Normal CP angle. No pneumothorax. Impression: Normal position of endotracheal tube. Segmental or discoid atelectasis right lower lobe/pneumonitis. The
[2018-12-02 12:09] LABS: Mean Corpuscular HGB Conc 30 % (32-34); Mean Corpuscular Volume 104 fl (84-94); Platelet Count 209 K/mm3 (140-440); Red Blood Count 2.98 M/mm3 (3.65-5.03)
[2018-12-02 12:23] LABS: Hematocrit 30.8 % (35.5-45.6); Hemoglobin 9.2 gm/dl (11.8-15.2); Red Cell Distribution Width 28.6 % (13.2-15.2)
[2018-12-02 12:27] LABS: Creatine Kinase MB 3.4 ng/mL (0.0-4.0)
[2018-12-02 12:29] LABS: Calcium 7.4 mg/dL (8.4-10.2)
--- NOTE | 2018-12-02 12:56 | Event Note ---
Date: 12/02/18 Patient called as a CODE BLUE overhead. [facility] medicine physicians, Tiago Gomez are present. They verbally request placement of endotracheal tube for respiratory failure. I'm informed that the patient is currently a full code. Patient placed on a nasal cannula at 15 L/m. Patient receives bag valve mask ventilation simultaneously. Patient induced with 150 mg of ketamine, a Ritesh 4 blade is inserted, direct laryngoscopy performed, and a 7.5 endotracheal tube is inserted, with no difficulty. Post intubation tube placement, tube placement is confirmed with direct visualization of the tube passing through the cords, appropriate end-tidal capnography color change, bilateral breath sounds, and post intubation x-ray of the chest. In addition, secondary to poor peripheral IV access, an aseptically placed left- sided external jugular 18-gauge IV is placed by myself, with one attempt, with no difficulty, and appropriate flashback. A left lower extremity intraosseous IV is placed, using typical aseptic technique, with a 45 mm 15-gauge intraosseous line placed, using the intraosseous drill, and the left proximal tibia. However, after placement, bone marrow aspirate is not appreciated, and therefore, the line is withdrawn. Prognosis is quite poor, I will defer to the inpatient team to medicine the patient post intubation. Inpatient team states that they will secure central line placement, if necessary.
--- NOTE | 2018-12-02 13:27 | Consultation ---
History of Present Illness Consult date: 12/02/18 Requesting physician: DESTINEE JAMES Reason for consult: other (Cardiopulmonary arrest, severe sepsis with septic shock, metastatic lung cnacer) History of present illness: Patient is a 73-year-old -[place] male who presented to the emergency department via EMS from home with complaint of generalized weakness, body aches and easy fatigability with falls. He also complained of some occasional diarrhea, generalized abdominal pain and shortness of breath. He denies chest pain, palpitation, fever, chills, cough, sore throat, runny nose, leg swelling, orthopnea or PND. No headaches, nausea, vomiting, lightheadedness syncope or loss of consciousness. Patient stated that he was recently told about a week a go at [facility] that he has some form of cancer. Code MET was called today as patient was hypotensive and unresponsive s/p COde blue transferred to the ICU intubated on multiple vasopressors Vital signs reviewed, hypotensive, did not respond to fluid boluses Past History Past Medical History: diabetes, hypertension, hyperlipidemia Past Surgical History: No surgical history Social history: other (patient admits to occasional alcohol use, but denies tobacco or illicit drug use) Family history: other (reviewed and noncontributory) Medications and Allergies Allergies Allergy/AdvReac Type Severity Reaction Status Date / Time No Known Allergies Allergy Verified 11/27/18 23:55 Home Medications Medication Instructions Recorded Confirmed Last Taken Type AtorvaSTATin [Lipitor] 40 mg PO DAILY 11/27/18 11/28/18 11/27/18 22:00 History Cholecalciferol (Vitamin D3) 1,000 1000units PO DAILY 11/27/18 11/28/18 11/27/18 10:00 History [Vitamin D3] Docusate Sodium [Colace] 100 mg PO BID PRN 11/27/18 11/27/18 Unknown History Furosemide [Lasix] 20 mg PO DAILY 11/27/18 11/28/18 11/27/18 10:00 History Hydrocortisone 10 mg PO QAM 11/27/18 11/28/18 11/27/18 10:00 History Hydrocortisone 15 mg PO QPM 11/27/18 11/28/18 11/27/18 22:00 History Levothyroxine [Synthroid] 25 mcg PO QAM 11/27/18 11/28/18 11/27/18 10:00 History Levothyroxine [Synthroid] 112 mcg PO QAM 11/27/18 11/28/18 11/27/18 10:00 History Losartan/Hydrochlorothiazide 1 each PO DAILY 11/27/18 11/28/18 11/27/18 10:00 History [Losartan-Hctz 100-25 mg Tab] Metformin HCl 1,000 mg PO BID 11/27/18 11/28/18 11/27/18 22:00 History Ranitidine HCl [Acid Taping Machine Operator] 150 mg PO DAILY 11/27/18 11/27/18 Unknown History Hydrocortisone [Cortef TAB] 10 mg PO QAM&QHS 11/28/18 11/28/18 11/27/18 22:00 History Tylenol 500 mg PO PRN 11/28/18 11/30/18 Unknown History Active Meds: Active Medications Acetaminophen (Tylenol) 650 mg PO Q4H PRN PRN Reason: Pain MILD(1-3)/Fever >100.5/ROSALES Aspirin (Aspirin) 325 mg PO QDAY [facility] Last Admin: 12/02/18 09:48 Dose: 325 mg Documented by: Atorvastatin Calcium (Lipitor) 40 mg PO QHS [facility] Last Admin: 12/01/18 21:47 Dose: 40 mg Documented by: Dextrose (D50w (25gm) Syringe) 50 ml IV PRN PRN PRN Reason: Hypoglycemia Last Admin: 11/30/18 22:03 Dose: 50 ml Documented by: Dextrose (D50w (25gm) Syringe) 50 ml IV ONCE ONE Stop: 12/02/18 13:22 Heparin Sodium (Porcine) (Heparin) 5,000 unit SUB-Q Q12HR [facility] Sodium Bicarbonate 100 meq/ (Dextrose) 1,100 mls @ 75 mls/hr IV DIRECT ALEXSANDRA Last Admin: 12/01/18 23:41 Dose: 75 mls/hr Documented by: Norepinephrine (Levophed Drip 4 Mg/Ns 250 Ml) 4 mg in 250 mls @ 7.5 mls/hr IV TITR ALEXSANDRA; Protocol Last Titration: 12/02/18 12:45 Dose: 14 mcg/min, 52.5 mls/hr Documented by: Calcium Chloride 1,000 mg/ (Sodium Chloride) 110 mls @ 660 mls/hr IV ONCE ONE Stop: 12/02/18 13:28 Insulin Glargine (Lantus) 10 units SUB-Q QHS [facility] Last Admin: 12/01/18 21:50 Dose: 10 units Documented by: Insulin Human Lispro (Humalog) 0 unit SUB-Q ACHS [facility]; Protocol Last Admin: 12/02/18 08:22 Dose: Not Given Documented by: Insulin Human Regular (Humulin R) 10 units IV ONCE ONE Stop: 12/02/18 13:21 Midodrine (Proamatine) 10 mg PO TID [facility] Last Admin: 12/02/18 08:16 Dose: 10 mg Documented by: Morphine Sulfate (Morphine) 2 mg IV Q3H PRN PRN Reason: Pain, Moderate (4-6) Last Admin: 11/30/18 15:05 Dose: 2 mg Documented by: Octreotide Acetate (Sandostatin) 100 mcg SUB-Q Q8HR [facility] Stop: 12/04/18 23:59 Last Admin: 12/02/18 06:52 Dose: 100 mcg Documented by: Ondansetron HCl (Zofran) 4 mg IV Q8H PRN PRN Reason: Nausea And Vomiting Oxycodone/Acetaminophen (Percocet 5/325) 1 tab PO Q4H PRN PRN Reason: Pain, Moderate (4-6) Last Admin: 11/29/18 11:41 Dose: 1 tab Documented by: Sodium Chloride (Sodium Chloride Flush Syringe 10 Ml) 10 ml IV BID [facility] Last Admin: 12/02/18 09:48 Dose: 10 ml Documented by: Sodium Chloride (Sodium Chloride Flush Syringe 10 Ml) 10 ml IV PRN PRN PRN Reason: LINE FLUSH Sodium Polystyrene Sulfonate (Kionex) 30 gm PO ONCE ONE Stop: 12/02/18 13:23 Review of Systems ROS unobtainable: due to endotracheal tube, due to mental status Physical Examination Vital signs: Vital Signs Temp Pulse Resp BP Pulse Ox 97.5 F L 106 H 20 93/57 95 11/27/18 20:57 11/27/18 20:57 11/27/18 20:57 11/27/18 20:57 11/27/18 20:57 General appearance: Present: mild distress, cachectic, disheveled, other (ill- looking) Orally intubated, ETT at 23 cm - EENT Eyes: Present: No pupillary reaction at this time - Neck Neck: Present: supple, normal ROM - Respiratory Respiratory effort: normal Respiratory: bilateral: diminished, rhonchi, wheezing, , coarse BS bilaterally - Cardiovascular Rhythm: regular Heart Sounds: Present: S1 & S2, tachycardia, no murmurs, gallops or rubs - Extremities Extremities: no ischemia, pulses intact, pulses symmetrical - Abdominal General gastrointestinal: soft, non-tender, non-distended, normal bowel sounds - Integumentary Integumentary: Present: clear, warm - Psychiatric Psychiatric: other (unresponsive) - Neurologic Neurologic: other (unresponsive) Results - Laboratory Findings CBC and BMP: 12/02/18 11:44 12/02/18 11:44 ABG POC ABG pH 7.108 (7.35-7.45) L 12/02/18 12:02 POC ABG pCO2 40.5 (35-45) 12/02/18 12:02 POC ABG pO2 157 (80-105) H 12/02/18 12:02 POC ABG HCO3 12.8 (22-26 mml/L) 12/02/18 12:02 POC ABG Total CO2 14 (23-27mmol/L) 12/02/18 12:02 POC ABG O2 Sat 99 12/02/18 12:02 PT/INR, D-dimer PT 21.6 Sec. (12.2-14.9) H 11/27/18 21:47 INR 1.75 (0.87-1.13) H 11/27/18 21:47 Abnormal lab findings: Abnormal Labs 11/27/18 11/27/18 11/27/18 21:47 21:47 21:47 WBC 11.3 H RBC Hgb 11.6 L Hct 34.1 L MCV MCHC RDW 24.9 H Seg Neuts % (Manual) 87.0 H Lymphocytes % (Manual) 8.0 L Nucleated RBC % 1.0 H Seg Neutrophils # Man 9.8 H Lymphocytes # (Manual) 0.9 L PT 21.6 H INR 1.75 H POC ABG pH POC ABG pO2 Sodium 136 L Potassium 8.4 H* Chloride Carbon Dioxide BUN 84 H Creatinine 3.8 H Glucose 143 H POC Glucose Calcium Phosphorus Magnesium Total Bilirubin 12.20 H Direct Bilirubin AST 189 H ALT 96 H Alkaline Phosphatase 1033 H Ammonia Total Creatine Kinase Troponin T 0.104 H* Total Protein 6.1 L Albumin 2.6 L Cholesterol 306 H LDL Cholesterol Direct 22 L HDL Cholesterol 21 L TSH Urine WBC (Auto) 11/27/18 11/27/18 11/27/18 21:47 21:47 22:49 WBC RBC Hgb Hct MCV MCHC RDW Seg Neuts % (Manual) Lymphocytes % (Manual) Nucleated RBC % Seg Neutrophils # Man Lymphocytes # (Manual) PT INR POC ABG pH POC ABG pO2 Sodium Potassium 5.8 H D Chloride Carbon Dioxide BUN Creatinine Glucose POC Glucose Calcium Phosphorus Magnesium Total Bilirubin Direct Bilirubin AST ALT Alkaline Phosphatase Ammonia 21.0 L Total Creatine Kinase Troponin T Total Protein Albumin Cholesterol LDL Cholesterol Direct HDL Cholesterol TSH 0.010 L Urine WBC (Auto) 11/28/18 11/28/18 11/28/18 01:08 03:25 03:31 WBC RBC Hgb Hct MCV MCHC RDW Seg Neuts % (Manual) Lymphocytes % (Manual) Nucleated RBC % Seg Neutrophils # Man Lymphocytes # (Manual) PT INR POC ABG pH POC ABG pO2 Sodium Potassium Chloride Carbon Dioxide BUN Creatinine Glucose POC Glucose 246 H Calcium Phosphorus Magnesium Total Bilirubin Direct Bilirubin AST ALT Alkaline Phosphatase Ammonia Total Creatine Kinase Troponin T 0.123 H* Total Protein Albumin Cholesterol LDL Cholesterol Direct HDL Cholesterol TSH Urine WBC (Auto) 114.0 H 11/28/18 11/28/18 11/28/18 08:05 12:49 15:56 WBC RBC Hgb Hct MCV MCHC RDW Seg Neuts % (Manual) Lymphocytes % (Manual) Nucleated RBC % Seg Neutrophils # Man Lymphocytes # (Manual) PT INR POC ABG pH POC ABG pO2 Sodium Potassium Chloride Carbon Dioxide BUN Creatinine Glucose POC Glucose 138 H 119 H Calcium Phosphorus Magnesium Total Bilirubin Direct Bilirubin AST ALT Alkaline Phosphatase Ammonia Total Creatine Kinase Troponin T 0.088 H D Total Protein Albumin Cholesterol LDL Cholesterol Direct HDL Cholesterol TSH Urine WBC (Auto) 11/28/18 11/28/18 11/28/18 15:56 18:34 21:52 WBC RBC Hgb Hct MCV MCHC RDW Seg Neuts % (Manual) Lymphocytes % (Manual) Nucleated RBC % Seg Neutrophils # Man Lymphocytes # (Manual) PT INR POC ABG pH POC ABG pO2 Sodium Potassium 5.8 H Chloride Carbon Dioxide BUN 80 H Creatinine 4.5 H Glucose 147 H POC Glucose 120 H 117 H Calcium Phosphorus Magnesium 3.10 H Total Bilirubin Direct Bilirubin AST ALT Alkaline Phosphatase Ammonia Total Creatine Kinase Troponin T Total Protein Albumin Cholesterol LDL Cholesterol Direct HDL Cholesterol TSH Urine WBC (Auto) 11/29/18 11/29/18 11/29/18 08:53 08:53 16:32 WBC 12.9 H RBC Hgb 11.6 L Hct 34.3 L MCV MCHC RDW 24.9 H Seg Neuts % (Manual) 90.0 H Lymphocytes % (Manual) 4.0 L Nucleated RBC % 2.0 H Seg Neutrophils # Man 11.6 H Lymphocytes # (Manual) 0.5 L PT INR POC ABG pH POC ABG pO2 Sodium 146 H Potassium 5.1 H 5.6 H Chloride 112.0 H 108.6 H Carbon Dioxide 19 L BUN 79 H 79 H Creatinine 4.3 H 4.1 H Glucose 115 H POC Glucose Calcium Phosphorus Magnesium Total Bilirubin 13.10 H Direct Bilirubin AST 158 H ALT 86 H Alkaline Phosphatase 971 H Ammonia Total Creatine Kinase Troponin T 0.095 H Total Protein Albumin 2.4 L Cholesterol LDL Cholesterol Direct HDL Cholesterol TSH Urine WBC (Auto) 11/30/18 11/30/18 11/30/18 05:24 07:31 11:41 WBC RBC Hgb Hct MCV MCHC RDW Seg Neuts % (Manual) Lymphocytes % (Manual) Nucleated RBC % Seg Neutrophils # Man Lymphocytes # (Manual) PT INR POC ABG pH POC ABG pO2 Sodium Potassium Chloride 111.3 H Carbon Dioxide 21 L BUN 79 H Creatinine 4.6 H Glucose 55 L POC Glucose 42 L 128 H Calcium Phosphorus Magnesium Total Bilirubin 12.30 H Direct Bilirubin AST 191 H ALT 90 H Alkaline Phosphatase 934 H Ammonia Total Creatine Kinase Troponin T Total Protein 6.1 L Albumin 2.2 L Cholesterol LDL Cholesterol Direct HDL Cholesterol TSH Urine WBC (Auto) 11/30/18 11/30/18 12/01/18 17:58 22:00 09:29 WBC RBC Hgb Hct MCV MCHC RDW Seg Neuts % (Manual) Lymphocytes % (Manual) Nucleated RBC % Seg Neutrophils # Man Lymphocytes # (Manual) PT INR POC ABG pH POC ABG pO2 Sodium Potassium Chloride 110.7 H Carbon Dioxide 17 L BUN 80 H Creatinine 5.0 H Glucose 114 H POC Glucose 42 L < 40 L Calcium Phosphorus Magnesium Total Bilirubin Direct Bilirubin AST ALT Alkaline Phosphatase Ammonia Total Creatine Kinase Troponin T Total Protein Albumin Cholesterol LDL Cholesterol Direct HDL Cholesterol TSH Urine WBC (Auto) 12/01/18 12/01/18 12/01/18 11:51 18:18 21:28 WBC RBC Hgb Hct MCV MCHC RDW Seg Neuts % (Manual) Lymphocytes % (Manual) Nucleated RBC % Seg Neutrophils # Man Lymphocytes # (Manual) PT INR POC ABG pH POC ABG pO2 Sodium Potassium Chloride Carbon Dioxide BUN Creatinine Glucose POC Glucose 143 H 192 H 203 H Calcium Phosphorus Magnesium Total Bilirubin Direct Bilirubin AST ALT Alkaline Phosphatase Ammonia Total Creatine Kinase Troponin T Total Protein Albumin Cholesterol LDL Cholesterol Direct HDL Cholesterol TSH Urine WBC (Auto) 12/02/18 12/02/18 12/02/18 04:23 05:02 07:51 WBC RBC Hgb Hct MCV MCHC RDW Seg Neuts % (Manual) Lymphocytes % (Manual) Nucleated RBC % Seg Neutrophils # Man Lymphocytes # (Manual) PT INR POC ABG pH POC ABG pO2 Sodium Potassium Chloride 109.5 H Carbon Dioxide 14 L BUN 80 H Creatinine 5.5 H Glucose 162 H POC Glucose 138 H 114 H Calcium 8.1 L Phosphorus Magnesium Total Bilirubin 9.50 H Direct Bilirubin 6.9 H AST 1678 H ALT 296 H Alkaline Phosphatase 875 H Ammonia Total Creatine Kinase Troponin T Total Protein 5.3 L Albumin 1.7 L Cholesterol LDL Cholesterol Direct HDL Cholesterol TSH Urine WBC (Auto) 12/02/18 12/02/18 12/02/18 11:44 11:44 12:02 WBC RBC 2.98 L Hgb 9.2 L Hct 30.8 L MCV 104 H MCHC 30 L RDW 28.6 H Seg Neuts % (Manual) Lymphocytes % (Manual) Nucleated RBC % Seg Neutrophils # Man Lymphocytes # (Manual) PT INR POC ABG pH 7.108 L POC ABG pO2 157 H Sodium Potassium 6.5 H* D Chloride 113.7 H Carbon Dioxide 11 L BUN 79 H Creatinine 5.6 H Glucose 71 L POC Glucose Calcium 7.4 L Phosphorus 7.10 H Magnesium 2.80 H Total Bilirubin Direct Bilirubin AST ALT Alkaline Phosphatase Ammonia Total Creatine Kinase 1347 H Troponin T 0.121 H* D Total Protein Albumin Cholesterol LDL Cholesterol Direct HDL Cholesterol TSH Urine WBC (Auto) 12/02/18 12:20 WBC RBC Hgb Hct MCV MCHC RDW Seg Neuts % (Manual) Lymphocytes % (Manual) Nucleated RBC % Seg Neutrophils # Man Lymphocytes # (Manual) PT INR POC ABG pH POC ABG pO2 Sodium Potassium Chloride Carbon Dioxide BUN Creatinine Glucose POC Glucose 61 L Calcium Phosphorus Magnesium Total Bilirubin Direct Bilirubin AST ALT Alkaline Phosphatase Ammonia Total Creatine Kinase Troponin T Total Protein Albumin Cholesterol LDL Cholesterol Direct HDL Cholesterol TSH Urine WBC (Auto) - Diagnostic Findings Chest x-ray: image reviewed Assessment and Plan Cardiopulmonary arrest with ROSC Acute hypoxic respiratory failure; requiring intubation Shock/septic shock Severe metabolic acidosis Hyperkalemia Acute metabolic encephalopathy; secondary to underlying disease process Large liver mass ; neuroendocrine tumor:per biopsy at [facility]; Transaminitis/ hyperbilirubinemia; Acute renal failure: Secondary to ATN Nonspecific Elevated troponin;denies chest pain or shortness of breath Hypercoagulable state/coagulopathy Dyslipidemia Left lower extremity edema; negative DVT Right lower extremity wound History of hypothyroidism -Continue full MVS, get follow up ABG. -Adjust minute ventilation for better acid-base -Medical managmeent of hyperkalemia, as patient is unable to get CVVHD -Bicarbonate infusion, Kayexalate, Bronchodilators, insulin-glucose -Wean supplemental oxygen to keep O2 sats 88-90% -Lung protective strategies -Daily ABGs/CXR -VAP bundle addressed -Volume resuscitation. Monitor renal indices closely -Avoid nephrotoxic agents, adjust all medications for CrCL -Strict intake and output monitoring -Vasopressor support for MAP<60 -Stress ulcer prophylaxis -VTE prophylaxis,SCD -Aspiration precautions -Accuchecks with glycemic control. Target glucose of 140-180 mg/dL -Get trans-thoracic echocardiogram ..care plan discussed at length with RN/RT at the bedside ...discussed with hospitalist service- poor prognosis, need to readdress goals of care with family PROGNOSIS: POOR CONDITION: CRITICAL CODE STATUS: FULL CODE The high probability of a clinically significant, sudden or life-threatening deterioration of the [respiratory, cardiovascular, hematologic, renal] system(s) required my full and direct attention, intervention and personal management. The aggregate critical care time was [65] minutes without overlap. Time includes spent on; [x] Data Review and interpretation [x] Patient assessment and monitoring of vital signs [x] Documentation [x] Medication orders and management
--- NOTE | 2018-12-02 13:37 | Progress Note ---
Assessment and Plan Assessment and plan: --Acute hypoxic respiratory failure; requiring intubation Continue ventilatory support, pulmonary critical consultation Nebulizers as needed, IV steroids and IV antibiotics --Hyperkalemia; treated per protocol Follow electrolyte levels, patient refused blood work today --Shock/septic shock; start Levophed and fluid boluses --Acute metabolic encephalopathy; secondary to underlying disease process Supportive care, check CT head without contrast when patient is stable --Large liver mass ; neuroendocrine tumor:per biopsy at [facility]; GI and hematology oncology following --Transaminitis/ hyperbilirubinemia; due to malignant liver lesion , neuroendocrine tumor --Acute renal failure: Secondary to ATN Continue IV fluid, avoid nephrotoxins Renal ultrasound negative, nephrology evaluation --Nonspecific Elevated troponin;denies chest pain or shortness of breath Nonspecific ,dueto demand ischemia , renal impairment,EF 50-55% --Hypercoagulable state/coagulopathy Likely due to the hepatic disease/mass --Dyslipidemia; hold statin in view of transaminitis --Left lower extremity edema; negative DVT --Right lower extremity wound; surgery evaluation noted and appreciated Wound care --Gen. debility/Deconditioning: PT and OT/Rehab --History of hypothyroidism; on Synthroid TSH is very low, possible overcorrection, hold Synthroid repeat TFTs --Full CODE STATUS --DVT Prophylaxis with SCD /coagulopathy Patient is critically, with very poor prognosis Patient's daughter at the bedside, patient's condition prognosis Treatment plan discussed in detail with her, CODE STATUS discussed Requested to continue all the current treatment, but DO NOT RESUSCITATE In the event of cardiac arrest Patient DO NOT RESUSCITATE status Critical care time 60 minutes History Interval history: Code MET was called as patient was hypotensive and unresponsive When I evaluated ,Patient was in acute respiratory distress. An unresponsive Patient was started on fluid boluses, ER physician has intubated the patient History patient is transferred to ICU for further evaluation and management Patient is in mild distress Vital signs reviewed, hypotensive, did not respond to fluid boluses Hospitalist Physical - Constitutional Vitals: Temp Pulse Resp BP Pulse Ox 98.7 F 90 14 44/22 96 12/02/18 12:00 12/02/18 10:50 12/02/18 10:44 12/02/18 10:44 12/02/18 10:44 General appearance: Present: mild distress, cachectic, disheveled, other (ill-looking) - EENT Eyes: Present: PERRL, EOM intact - Neck Neck: Present: supple, normal ROM - Respiratory Respiratory effort: normal Respiratory: bilateral: diminished, rhonchi, wheezing, negative: rales - Cardiovascular Rhythm: regular Heart Sounds: Present: S1 & S2 - Extremities Extremities: no ischemia, pulses intact, pulses symmetrical - Abdominal General gastrointestinal: soft, non-tender, non-distended, normal bowel sounds - Integumentary Integumentary: Present: clear, warm - Psychiatric Psychiatric: other (unresponsive) - Neurologic Neurologic: other (unresponsive) Results - Labs CBC & Chem 7: 12/02/18 11:44 12/02/18 11:44 Labs: Laboratory Last Values WBC 9.6 K/mm3 (4.5-11.0) 12/02/18 11:44 RBC 2.98 M/mm3 (3.65-5.03) L 12/02/18 11:44 Hgb 9.2 gm/dl (11.8-15.2) L 12/02/18 11:44 Hct 30.8 % (35.5-45.6) L 12/02/18 11:44 MCV 104 fl (84-94) H 12/02/18 11:44 MCH 31 pg (28-32) 12/02/18 11:44 MCHC 30 % (32-34) L 12/02/18 11:44 RDW 28.6 % (13.2-15.2) H 12/02/18 11:44 Plt Count 209 K/mm3 (140-440) 12/02/18 11:44 Lymph % (Auto) Complaint Investigator 11/29/18 08:53 Lymph # Complaint Investigator 11/29/18 08:53 Add Manual Diff Complete 11/29/18 08:53 Total Counted 100 11/29/18 08:53 Seg Neutrophils % Complaint Investigator 11/29/18 08:53 Seg Neuts % (Manual) 90.0 % (40.0-70.0) H 11/29/18 08:53 Band Neutrophils % 0 % 11/29/18 08:53 Lymphocytes % (Manual) 4.0 % (13.4-35.0) L 11/29/18 08:53 Reactive Lymphs % (Man) 0 % 11/29/18 08:53 Monocytes % (Manual) 2.0 % (0.0-7.3) 11/29/18 08:53 Eosinophils % (Manual) 3.0 % (0.0-4.3) 11/29/18 08:53 Basophils % (Manual) 0 % (0.0-1.8) 11/29/18 08:53 Metamyelocytes % 1.0 % 11/29/18 08:53 Myelocytes % 0 % 11/29/18 08:53 Promyelocytes % 0 % 11/29/18 08:53 Blast Cells % 0 % 11/29/18 08:53 Nucleated RBC % 2.0 % (0.0-0.9) H 11/29/18 08:53 Seg Neutrophils # Man 11.6 K/mm3 (1.8-7.7) H 11/29/18 08:53 Band Neutrophils # 0.0 K/mm3 11/29/18 08:53 Lymphocytes # (Manual) 0.5 K/mm3 (1.2-5.4) L 11/29/18 08:53 Abs React Lymphs (Man) 0.0 K/mm3 11/29/18 08:53 Monocytes # (Manual) 0.3 K/mm3 (0.0-0.8) 11/29/18 08:53 Eosinophils # (Manual) 0.4 K/mm3 (0.0-0.4) 11/29/18 08:53 Basophils # (Manual) 0.0 K/mm3 (0.0-0.1) 11/29/18 08:53 Metamyelocytes # 0.1 K/mm3 11/29/18 08:53 Myelocytes # 0.0 K/mm3 11/29/18 08:53 Promyelocytes # 0.0 K/mm3 11/29/18 08:53 Blast Cells # 0.0 K/mm3 11/29/18 08:53 WBC Morphology Not Reportable 11/29/18 08:53 Hypersegmented Neuts Not Reportable 11/29/18 08:53 Hyposegmented Neuts Not Reportable 11/29/18 08:53 Hypogranular Neuts Not Reportable 11/29/18 08:53 Smudge Cells Not Reportable 11/29/18 08:53 Toxic Granulation Not Reportable 11/29/18 08:53 Toxic Vacuolation Not Reportable 11/29/18 08:53 Dohle Bodies Not Reportable 11/29/18 08:53 Pelger-Huet Anomaly Not Reportable 11/29/18 08:53 Jessica Rods Not Reportable 11/29/18 08:53 Platelet Estimate Consistent w auto 11/29/18 08:53 Clumped Platelets Not Reportable 11/29/18 08:53 Plt Clumps, EDTA Not Reportable 11/29/18 08:53 Large Platelets Not Reportable 11/29/18 08:53 Giant Platelets Not Reportable 11/29/18 08:53 Platelet Satelliting Not Reportable 11/29/18 08:53 Plt Morphology Comment Not Reportable 11/29/18 08:53 RBC Morphology Not Reportable 11/29/18 08:53 Dimorphic RBCs Not Reportable 11/29/18 08:53 Polychromasia Not Reportable 11/29/18 08:53 Hypochromasia 1+ 11/29/18 08:53 Poikilocytosis 1+ 11/29/18 08:53 Anisocytosis 2+ 11/29/18 08:53 Microcytosis Few 11/29/18 08:53 Macrocytosis Not Reportable 11/29/18 08:53 Spherocytes Not Reportable 11/29/18 08:53 Pappenheimer Bodies Not Reportable 11/29/18 08:53 Sickle Cells Not Reportable 11/29/18 08:53 Target Cells 2+ 11/29/18 08:53 Tear Drop Cells Not Reportable 11/29/18 08:53 Ovalocytes Not Reportable 11/29/18 08:53 Helmet Cells Not Reportable 11/29/18 08:53 Perez-Burgess Bodies Not Reportable 11/29/18 08:53 [place] Rings Not Reportable 11/29/18 08:53 C[place]on Cells Not Reportable 11/29/18 08:53 Bite Cells Not Reportable 11/29/18 08:53 Crenated Cell Not Reportable 11/29/18 08:53 Elliptocytes Not Reportable 11/29/18 08:53 Acanthocytes (Spur) Not Reportable 11/29/18 08:53 Rouleaux Not Reportable 11/29/18 08:53 Hemoglobin C Crystals Not Reportable 11/29/18 08:53 Schistocytes Not Reportable 11/29/18 08:53 Malaria parasites Not Reportable 11/29/18 08:53 Hugo Bodies Not Reportable 11/29/18 08:53 Hem Pathologist Commnt No 11/29/18 08:53 PT 21.6 Sec. (12.2-14.9) H 11/27/18 21:47 INR 1.75 (0.87-1.13) H 11/27/18 21:47 APTT 34.7 Sec. (24.2-36.6) 11/27/18 21:47 POC ABG pH 7.108 (7.35-7.45) L 12/02/18 12:02 POC ABG pCO2 40.5 (35-45) 12/02/18 12:02 POC ABG pO2 157 (80-105) H 12/02/18 12:02 POC ABG HCO3 12.8 (22-26 mml/L) 12/02/18 12:02 POC ABG Total CO2 14 (23-27mmol/L) 12/02/18 12:02 POC ABG O2 Sat 99 12/02/18 12:02 POC ABG Base Excess -17 ((-2) - (+3)mmol/L) 12/02/18 12:02 FiO2 100 % 12/02/18 12:02 Sodium 144 mmol/L (137-145) 12/02/18 11:44 Potassium 6.5 mmol/L (3.6-5.0) H* D 12/02/18 11:44 Chloride 113.7 mmol/L (98-107) H 12/02/18 11:44 Carbon Dioxide 11 mmol/L (22-30) L 12/02/18 11:44 Anion Gap 26 mmol/L 12/02/18 11:44 BUN 79 mg/dL (9-20) H 12/02/18 11:44 Creatinine 5.6 mg/dL (0.8-1.5) H 12/02/18 11:44 Estimated GFR 12 ml/min 12/02/18 11:44 BUN/Creatinine Ratio 14 % 12/02/18 11:44 Glucose 71 mg/dL (75-100) L 12/02/18 11:44 POC Glucose 61 (70-105) L 12/02/18 12:20 Lactic Acid 1.90 mmol/L (0.7-2.0) 11/27/18 21:47 Calcium 7.4 mg/dL (8.4-10.2) L 12/02/18 11:44 Phosphorus 7.10 mg/dL (2.5-4.5) H 12/02/18 11:44 Magnesium 2.80 mg/dL (1.7-2.3) H 12/02/18 11:44 Total Bilirubin 9.50 mg/dL (0.1-1.2) H 12/02/18 04:23 Direct Bilirubin 6.9 mg/dL (0-0.2) H 12/02/18 04:23 Indirect Bilirubin 2.6 mg/dL 12/02/18 04:23 AST 1678 units/L (5-40) H 12/02/18 04:23 ALT 296 units/L (7-56) H 12/02/18 04:23 Alkaline Phosphatase 875 units/L (35-129) H 12/02/18 04:23 Ammonia 21.0 umol/L (25-60) L 11/27/18 21:47 Total Creatine Kinase 1347 units/L (55-170) H 12/02/18 11:44 CK-MB (CK-2) 3.4 ng/mL (0.0-4.0) 12/02/18 11:44 CK-MB (CK-2) Rel Index 0.2 (0-4) 12/02/18 11:44 Troponin T 0.121 ng/mL (0.00-0.029) H* D 12/02/18 11:44 Total Protein 5.3 g/dL (6.3-8.2) L 12/02/18 04:23 Albumin 1.7 g/dL (3.9-5) L 12/02/18 04:23 Albumin/Globulin Ratio 0.5 % 12/02/18 04:23 Prealbumin 0.240 g/L (0.200-0.400) 11/30/18 05:24 Triglycerides 106 mg/dL (2-149) 11/27/18 21:47 Cholesterol 306 mg/dL (50-199) H 11/27/18 21:47 LDL Cholesterol Direct 22 mg/dL (50-130) L 11/27/18 21:47 HDL Cholesterol 21 mg/dL (40-59) L 11/27/18 21:47 Cholesterol/HDL Ratio 14.57 % 11/27/18 21:47 CA 19-9 Antigen <3 U/mL (<34) 11/29/18 08:53 Prostate Specific Ag 0.89 ng/mL (0.00-4.00) 11/29/18 08:53 TSH 0.010 mlU/mL (0.270-4.200) L 11/27/18 21:47 Free T4 0.92 ng/dL (0.76-1.46) 11/27/18 22:49 PTH Intact 50.60 pg/mL (15-65) 11/30/18 05:24 Urine Color [place] (Yellow) 11/28/18 03:31 Urine Turbidity Slightly-cloudy (Clear) 11/28/18 03:31 Urine pH 6.0 (5.0-7.0) 11/28/18 03:31 Ur Specific [place] 1.019 (1.003-1.030) 11/28/18 03:31 Urine Protein 100 mg/dl mg/dL (Negative) 11/28/18 03:31 Urine Glucose (UA) Neg mg/dL (Negative) 11/28/18 03:31 Urine Ketones Neg mg/dL (Negative) 11/28/18 03:31 Urine Blood Sm (Negative) 11/28/18 03:31 Urine Nitrite Neg (Negative) 11/28/18 03:31 Urine Bilirubin Mod (Negative) 11/28/18 03:31 Urine Ictotest Positive (Negative) 11/28/18 03:31 Urine Urobilinogen 4.0 mg/dL (<2.0) 11/28/18 03:31 Ur Leukocyte Esterase Mod (Negative) 11/28/18 03:31 Urine WBC (Auto) 114.0 /HPF (0.0-6.0) H 11/28/18 03:31 Urine RBC (Auto) 7.0 /HPF (0.0-6.0) 11/28/18 03:31 U Epithel Cells (Auto) 1.0 /HPF (0-13.0) 11/28/18 03:31 Urine Bacteria (Auto) 4+ /HPF (Negative) 11/28/18 03:31 Amorphous Crystals Few 11/28/18 03:31 Urine Mucus Few /HPF 11/28/18 03:31 Hepatitis A IgM Ab Non-reactive (NonReactive) 11/29/18 16:32 Hep Bs Antigen Nonreactive (Negative) 11/29/18 16:32 Hep B Core IgM Ab Non-reactive (NonReactive) 11/29/18 16:32 Hepatitis C Antibody Nonreactive (NonReactive) 11/29/18 16:32 Active Medications - Current Medications Current Medications: Generic Name Dose Route Start Last Admin Trade Name Freq PRN Reason Stop Dose Admin Acetaminophen 650 mg 11/28/18 02:40 Tylenol PO Q4H PRN Pain MILD(1-3)/Fever >100.5/ROSALES Aspirin 325 mg 11/28/18 10:00 12/02/18 09:48 Aspirin PO 325 mg QDAY ALEXSANDRA Administration Atorvastatin Calcium 40 mg 11/28/18 22:00 12/01/18 21:47 Lipitor PO 40 mg QHS ALEXSANDRA Administration Dextrose 50 ml 11/28/18 03:08 11/30/18 22:03 D50w (25gm) Syringe IV 50 ml PRN PRN Administration Hypoglycemia Dextrose 50 ml 12/02/18 13:21 D50w (25gm) Syringe IV 12/02/18 13:22 ONCE ONE Heparin Sodium (Porcine) 5,000 unit 12/02/18 22:00 Heparin SUB-Q Q12HR ALEXSANDRA Sodium Bicarbonate 100 meq/ 1,100 mls @ 75 mls/hr 12/01/18 20:00 12/01/18 23:41 Dextrose IV 75 mls/hr DIRECT ALEXSANDRA Administration Norepinephrine 4 mg in 250 mls @ 7.5 mls/hr 12/02/18 11:00 12/02/18 13:15 Levophed Drip 4 Mg/Ns 250 Ml IV 18 mcg/min TITR ALEXSANDRA 67.5 mls/hr Titration Protocol 2 MCG/MIN Calcium Chloride 1,000 mg/ 110 mls @ 660 mls/hr 12/02/18 13:19 Sodium Chloride IV 12/02/18 13:28 ONCE ONE Insulin Glargine 10 units 11/28/18 22:00 12/01/18 21:50 Lantus SUB-Q 10 units QHS ALEXSANDRA Administration Insulin Human Lispro 0 unit 11/28/18 07:30 12/02/18 08:22 Humalog SUB-Q Not Given ACHS [facility] Protocol Insulin Human Regular 10 units 12/02/18 13:20 Humulin R IV 12/02/18 13:21 ONCE ONE Midodrine 10 mg 12/01/18 08:00 12/02/18 08:16 Proamatine PO 10 mg TID ALEXSANDRA Administration Morphine Sulfate 2 mg 11/28/18 02:40 11/30/18 15:05 Morphine IV 2 mg Q3H PRN Administration Pain, Moderate (4-6) Octreotide Acetate 100 mcg 12/01/18 15:00 12/02/18 06:52 Sandostatin SUB-Q 12/04/18 23:59 100 mcg Q8HR ALEXSANDRA Administration Ondansetron HCl 4 mg 11/28/18 02:40 Zofran IV Q8H PRN Nausea And Vomiting Oxycodone/Acetaminophen 1 tab 11/28/18 02:40 11/29/18 11:41 Percocet 5/325 PO 1 tab Q4H PRN Administration Pain, Moderate (4-6) Sodium Chloride 10 ml 11/28/18 10:00 12/02/18 09:48 Sodium Chloride Flush Syringe 10 Ml IV 10 ml BID ALEXSANDRA Administration Sodium Chloride 10 ml 11/28/18 02:40 Sodium Chloride Flush Syringe 10 Ml IV PRN PRN LINE FLUSH Sodium Polystyrene Sulfonate 30 gm 12/02/18 13:22 Kionex PO 12/02/18 13:23 ONCE ONE Nutrition/Malnutrition Assess - Dietary Evaluation Nutrition/Malnutrition Findings: Nutrition Notes Start: 11/29/18 16:56 Freq: Status: Active Protocol: Document 11/30/18 11:51 EB (Rec: 11/30/18 12:01 [id number]) Co-Sign 11/30/18 11:51 LP Nutrition Notes Need for Assessment generated from: certified genetic counselor Initial or Follow up Reassessment Current Diagnosis Acute Kidney Injury Other Pertinent Diagnosis liver mass Current Diet regular Labs/Tests Na 145 K 4.6 BUN 79 Cr 4.6 Bili 12.3 Pertinent Medications Reviewed Height 5 ft 6 in Weight 63.5 kg [place] Body Weight (kg) 64.54 BMI 22.6 Subjective/Other Information Consulted for poor oral intake . Pt consumed 0% breakfast this am and 50% of meals yesterday. Pt states he drinks ONS BID. Pt states all food tastes sweet and requests " vegetable juice." Percent of energy/protein needs met: 68%/57% Burn Absent Trauma Absent #1 Nutrition Diagnosis Inadequate oral intake Diagnosis Progress(for reassessment Continues documentation) Is patient on ventilator? No Is Patient Ambulatory and/or Out of Bed Yes REE-([facility]-ambulatory/OOB) [ 1713.075 [id number]] Calculation Used for Recommendations [facility] Additional Notes protein (1.2-1.5g/kg): 76-95g fluid: 1mL/kcal or per MD Nutrition Intervention Change Diet Order: Add chopped meat modification Add Supplement/Snack (indicate name/kcal Ensure Enlive BID /protein ) Provides kCal: 700 Provides Protein (gm) 40 Goal #1 Diet and ONS to meet 75-100% of energy and protein needs Follow-Up By: 12/03/18 Additional Comments f/u: intakes
[2018-12-02] MEDS ORDERED: KIONEX PO ONE (14:00)
[2018-12-02] MEDS ORDERED: D50W (25GM) Syringe IV ONE (14:00)
[2018-12-02] MEDS ORDERED: HumuLIN R IV ONE (14:00)
[2018-12-02] MEDS ORDERED: SIMPLE SYRUP FEEDTUBE PRN ×4 (14:08→14:55)
[2018-12-02] MEDS ORDERED: PANCREAZE DR 10,500 UNIT FEEDTUBE PRN ×2 (14:08→14:55)
[2018-12-02] MEDS ORDERED: SODIUM BICARBONATE FEEDTUBE PRN ×2 (14:08→14:55)
[2018-12-02] MEDS ORDERED: CALCIUM CHLORIDE 1,000 MG in NACL 0.9% 100 ML IV ONE (14:30)
[2018-12-02 14:33] LABS: Band Neutrophils # (Manual) 0.9 K/mm3; Basophils % (Manual) 0 % (0.0-1.8); Total Cells Counted 100
[2018-12-02 14:34] LABS: Anisocytosis 2+; Platelet Clumps Few; Platelet Estimate Consistent w Auto; Target Cells 2+
--- NOTE | 2018-12-02 16:25 | XRay Report ---
PROCEDURE: Chest. TECHNIQUE: Portable supine AP view. HISTORY: Right arm PICC line placement. COMPARISONS: Chest done earlier today. FINDINGS: The heart and mediastinum appear normal. There is subsegmental atelectasis at both lung bases. There is some hazy opacity in the right midlung which could represent early pneumonia. An endotracheal tube is in satisfactory position. A nasogastric tube enters the right lower lobe bronchus. I've been told that the nasogastric tube has already been removed. There are no pleural effusions. There is a right arm PICC line catheter that terminates in the SVC. The regional skeleton appears intact. IMPRESSION: Nasogastric tube in the right lower lobe. Bibasilar subsegmental atelectasis. Satisfactory PICC line placement. This document is electronically signed by Jeromy Davison MD., December 02 2018 04:23:39 PM ET
--- NOTE | 2018-12-02 16:28 | XRay Report ---
PROCEDURE: XR ABDOMEN 1V AP TECHNIQUE: Supine frontal portable view of the abdomen HISTORY: NGT placement COMPARISONS: None FINDINGS: Distal tip of NG tube projected in right lung base region, possibly within a right lower lobe bronchu s. Nonspecific left lung base opacity obscuring the CP angle. No intestinal distention in the visible portion of abdomen. IMPRESSION: NG tube distal tip in right lung base region may be within a right lower lobe bronchus. Clinical staf f aware Left lung base opacity may be scar, effusion, atelectasis, and/or pneumonitis This document is electronically signed by Rigoberto Laech MD., December 02 2018 04:26:03 PM ET
--- NOTE | 2018-12-02 16:34 | XRay Report ---
PROCEDURE: XR ABDOMEN 1V AP TECHNIQUE: Supine portable frontal view of the abdomen HISTORY: NGT placement after adjustment COMPARISONS: Earlier the same day FINDINGS: Distal tip gastric tube, after adjustment, is present in the left upper quadrant of the abdomen, in t he expected region of the proximal stomach. No intestinal distention in the visible portion of the abdomen. Nonspecific right upper quadrant calcification may reflect gallstones or renal calculi. IMPRESSION: Distal tip gastric tube, after adjustment, is present in the left upper quadrant of the abdomen, in t he expected region of the proximal stomach. Nonspecific right upper quadrant calcification may reflect gallstones or renal calculi. This document is electronically signed by Rigoberto Leach MD., December 02 2018 04:32:37 PM ET
[2018-12-02] MEDS ORDERED: Vasostrict 20 UNIT in NACL 0.9% 100 ML IV SCH (17:00)
[2018-12-02] MEDS ORDERED: PROVENTIL IH ONE (17:04)
[2018-12-02] MEDS ORDERED: NACL 0.9% 1000 ML 0 ML ONE (17:15)
--- NOTE | 2018-12-02 18:50 | Event Note ---
Date: 12/02/18 Nurse called and reported that patient has no cardiopulmonary activity Evaluated the patient, patient unresponsive, pupils dilated and fixed no car diorespiratory Activity noted, pronounced , informed the daughter. Time of 1714 hrs.[5:14 PM]
--- NOTE | 2018-12-02 18:54 | Death Summary ---
Summary - Providers Date of service: 12/02/18 Consults: 11/28/18 03:51 Physical Therapy Evaluation and Treat [CONS] Routine Comment: Reason For Exam: generalized weakness 11/28/18 03:53 Consult to Wound/ET Nurse [CONS] Routine Reason For Exam: wound eval 11/28/18 17:53 Consult to Physician [CONS] Routine Comment: called answ. serv. /rocio Consulting Provider: FRANCISCO BURNS Physician Instructions: Reason For Exam: Liver Mass/ ?metastatic vs primary 11/28/18 17:57 Consult to Physician [CONS] Routine Comment: called answ. serv./ rocio Consulting Provider: UZAIR SWEENEY Physician Instructions: Reason For Exam: Liver mass 11/29/18 09:12 Consult to Physician [CONS] Routine Comment: Consulting Provider: JUANITO GAMBLE Physician Instructions: Reason For Exam: Ac vs Ac on CKD 11/29/18 14:52 Consult to Physician [CONS] Routine Comment: Consulting Provider: JOCELYN STOVALL Physician Instructions: POSSIBLE ESCHAR REMOVAL Reason For Exam: EVALUATE RIGHT LEG FOR DEBRIDEMENT 11/29/18 16:54 Consult to Dietitian/Nutrition [CONS] Routine Physician Instructions: Reason For Exam: Reason for Consult: Poor oral intake 12/02/18 10:52 Consult to PICC Line RN [CONS] Stat Reason For Exam: pressors Type Line:: PICC 12/02/18 11:17 Consult to Physician [CONS] Urgent Comment: Consulting Provider: ARNULFO GRISSOM Physician Instructions: Reason For Exam: resp failure/shock 12/02/18 14:09 Consult to Dietitian/Nutrition [CONS] Routine Physician Instructions: Assess nutrtn needs, initiate, modify, manage TF Reason For Exam: Reason for Consult: Write/Manage Tube Feeding Reason for Consult: Write/Manage Tube Feeding Attending: DESTINEE JAMES - summary Date of admission: 11/28/18 02:40 Date of : 12/02/18 (At 17:14 hrs) Reason for admission: generalized weakness/abdominal pain/falls/shortness of breath Significant findings: 73-year-old -[place] male was admitted through the ER with generalized weakness, body aches and easy fatigability with falls. He also complained of some occasional diarrhea, generalized abdominal pain and shortness of breath. Patient has metastatic liver mass neural endocrine tumor, evaluated by GI hematology oncologist,Patient went into acute respiratory failure requiring intubation and was transferred to ICU Noted to have severe septic shock requiring Levophed,Hematology oncology, surgery, GI evaluated the patient for further evaluation of Neuroendocrine tumor of the liver mass, biopsy was done in [facility], Patient also had acute renal failure evaluated by nephrology as well as hypercoagulable state, Patient had poor prognosis Discussed with the family, made him DO NOT RESUSCITATE However on 12/02/2018 patient had cardiac arrest and respiratory failure and 17:14 hrs. Discharge diagnoses; --Cardiopulmonary arrest/ --Acute hypoxic respiratory failure; requiring intubation Continue ventilatory support, pulmonary critical consultation Nebulizers as needed, IV steroids and IV antibiotics --Hyperkalemia; treated per protocol Follow electrolyte levels, patient refused blood work today --Shock/septic shock; start Levophed and fluid boluses --Acute metabolic encephalopathy; secondary to underlying disease process Supportive care, check CT head without contrast when patient is stable --Large liver mass ; neuroendocrine tumor:per biopsy at [facility]; GI and hematology oncology following --Transaminitis/ hyperbilirubinemia; due to malignant liver lesion , neuroendocrine tumor --Acute renal failure: Secondary to ATN Continue IV fluid, avoid nephrotoxins Renal ultrasound negative, nephrology evaluation --Nonspecific Elevated troponin;denies chest pain or shortness of breath Nonspecific ,dueto demand ischemia , renal impairment,EF 50-55% --Hypercoagulable state/coagulopathy Likely due to the hepatic disease/mass --Dyslipidemia; hold statin in view of transaminitis --Left lower extremity edema; negative DVT --Right lower extremity wound; surgery evaluation noted and appreciated Wound care --Gen. debility/Deconditioning: PT and OT/Rehab --History of hypothyroidism; on Synthroid TSH is very low, possible overcorrection, hold Synthroid repeat TFTs Patient and family informed Critical care time 45 minutes Pertinent studies: Chest x-ray CT head Renal ultrasound Abdominal ultrasound Lower extremity venous Doppler Echocardiogram MRCP Vital Chest and abdominal x-rays Excisional debridement of necrotic right lower extremity wound Disposition: Patient - Final diagnosis (1) Acute respiratory failure Note: Final diagnosis: (2) Cardiac arrest Note: Final diagnosis: (3) Neuroendocrine tumor of liver Note: Final diagnosis: (4) Septic shock Note: Final diagnosis: (5) Hyperkalemia Note: Final diagnosis: (6) Acute renal failure Note: Final diagnosis: (7) Acute hepatic encephalopathy Note: Final diagnosis: (8) Severe malnutrition Note: Final diagnosis:
[2018-12-02 19:48] VITALS: BP 51/24
[2018-12-02] MEDS ORDERED: HEPARIN SUB-Q SCH (22:00)
== END 2018-12-02 19:00 | DRG 673 ==
LOC: ED 20:32 → 2B-ACE 11-28 02:40 → CC1 12-02 10:55
PROVIDERS: ADMIT Internal Medicine; ATTEND Internal Medicine
PROC: 3E0234Z Introduction of Serum, Toxoid and Vaccine into Muscle, Percutaneous Approach (ICD-10-PCS; 2018-11-28)
PROC: 0JBN0ZZ Excision of Right Lower Leg Subcutaneous Tissue and Fascia, Open Approach (ICD-10-PCS; principal; 2018-11-30)
PROC: 0BH17EZ Insertion of Endotracheal Airway into Trachea, Via Natural or Artificial Opening (ICD-10-PCS; 2018-12-02)
PROC: 3E0A3GC Introduction of Other Therapeutic Substance into Bone Marrow, Percutaneous Approach (ICD-10-PCS; 2018-12-02)
PROC: 4A033R1 Measurement of Arterial Saturation, Peripheral, Percutaneous Approach (ICD-10-PCS; 2018-12-02)
PROC: 02HV33Z Insertion of Infusion Device into Superior Vena Cava, Percutaneous Approach (ICD-10-PCS; 2018-12-02)
DX: N17.0 Acute kidney failure with tubular necrosis (principal); A41.9 Sepsis, unspecified organism; E43 Unspecified severe protein-calorie malnutrition; J96.01 Acute respiratory failure with hypoxia; R65.21 Severe sepsis with septic shock; G93.41 Metabolic encephalopathy; D68.59 Other primary thrombophilia; I42.9 Cardiomyopathy, unspecified; K80.10 Calculus of gallbladder with chronic cholecystitis without obstruction; E87.0 Hyperosmolality and hypernatremia; E78.5 Hyperlipidemia, unspecified; Z66 Do not resuscitate; X58.XXXA Exposure to other specified factors, initial encounter; E87.5 Hyperkalemia; K76.9 Liver disease, unspecified; S81.801A Unspecified open wound, right lower leg, initial encounter; I10 Essential (primary) hypertension; E11.9 Type 2 diabetes mellitus without complications; Z79.899 Other long term (current) drug therapy; Z79.84 Long term (current) use of oral hypoglycemic drugs; Y93.89 Activity, other specified; Y92.89 Other specified places as the place of occurrence of the external cause; Y99.8 Other external cause status; Z23 Encounter for immunization; Z68.25 Body mass index [BMI] 25.0-25.9, adult
CPT/HCPCS: 36415; 36600; 70450; 71045; 74018; 74181; 76705; 76770; 80048; 80053; 80061; 80074; 80076; 81001; 82106; 82140; 82378; 82550; 82553; 82803; 82947; 82962; 83520; 83735; 83970; 84100; 84132; 84134; 84153; 84439; 84443; 84484; 85007; 85025; 85610; 85730; 86235; 86301; 87116; 87205; 90471; 90732; 93005; 93010; 93306; 94003; 94640; 94760; 96365; 96366; 96375; G0378; A9270-GY; G0009; J0610; J1815; J2270; J2354; J7030; J7040; J7042; J7070